=== PATIENT | female | born 1930 | race Caucasian/White ===

== ENCOUNTER 2019-03-04 10:14 | Emergency (ER) | payer OTHER ==
[2019-03-04] MEDS ORDERED: CLINDAMYCIN 600MG/D5W 600 MG/50 ML BAG IV ONE (10:52)
[2019-03-04] MEDS ORDERED: CEFTRIAXONE/SWI 1gm 1 GM/10 ML SYR ONE (10:52)
--- NOTE | 2019-03-04 11:04 | ER ---
Nurse's Notes [facility] Name: Heather Garcia Age: 88 yrs Sex: Female : 1930 Arrival Date: 03/04/2019 Time: 10:18 Bed 20 Private MD: Marla Fuentes Diagnosis: Anisa-orbital cellulitis Presentation: 03/04 10:24 Presenting complaint: Patient states: She has had burning around the right eye for the aj1 past 2-3 days. Yesterday she started having some redness under the eye and when she woke up this morning there was redness around her entire eye. Patient also has a growth on the right worship that she states she had biopsied recently. 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 Transition of care: patient was not received from another setting of care. Onset of symptoms was February 2019. Risk Assessment: Do you want to hurt yourself or someone else? Patient reports no desire to harm self or others. Initial Sepsis Screen: Does the patient meet any 2 criteria? No. Patient's initial sepsis screen is negative. Does the patient have a suspected source of infection? No. Patient's initial sepsis screen is negative. Care prior to arrival: None. 10:24 Method Of Arrival: Ambulatory aj1 10:24 Acuity: ADRIENNE 3 aj1 Triage Assessment: 10:30 General: Appears in no apparent distress. uncomfortable, Behavior is calm, cooperative, aj1 appropriate for age. Pain: Complains of pain in right eye Pain currently is 5 out of 10 on a pain scale. Neuro: Level of Consciousness is awake, alert, obeys commands. Cardiovascular: Patient's skin is warm and dry. Respiratory: Airway is patent Respiratory effort is even, unlabored, Respiratory pattern is regular, symmetrical. Historical: - Allergies: 10:30 Bactrim; aj1 10:30 Inderal; aj1 - PMHx: 10:30 Diabetes - NIDDM; Hypertension; Hyperlipidemia; breast cancer; neuropathy; aj1 - PSHx: 10:30 partial hysterectomy; Cholecystectomy; aj1 - Immunization history:: Flu vaccine is not up to date. - Social history:: Smoking status: Patient/guardian denies using tobacco. - Ebola Screening: : Patient denies travel to an Ebola-affected area in the 21 days before illness onset. - Family history:: not pertinent. - Hospitalizations: : No recent hospitalization is reported. Screenin:50 Abuse screen: Denies threats or abuse. Nutritional screening: No deficits noted. em Tuberculosis screening: No symptoms or risk factors identified. Fall Risk None identified. Assessment: 10:50 General: Appears Behavior is calm, cooperative, Denies fever. Pain: Complains of pain em in right eye Pain currently is 5 out of 10 on a pain scale. Pain began 2-3 days ago. Neuro: Level of Consciousness is awake, alert, obeys commands, Oriented to person, place, time, situation, Appropriate for age. Cardiovascular: Capillary refill < 3 seconds Patient's skin is warm and dry. Respiratory: Airway is patent Respiratory effort is even, unlabored, Respiratory pattern is regular, symmetrical. GI: Abdomen is flat. Derm: Skin is intact, is fragile, Skin is pink, warm \T\ dry. redness noted around right eye, tender to touch. Musculoskeletal: Capillary refill < 3 seconds, Range of motion: intact in all extremities. 10:50 Reassessment: I agree with assessment completed by Judson Pereira LVN . aa5 11:07 Reassessment: pending completion of IV ABX before discharge Patient denies pain at this em time. Vital Signs: 10:30 BP 162 / 85; Pulse 86; Resp 18; Temp 97.7; Pulse Ox 99% on R/A; Weight 53.98 kg (R); aj1 Height 5 ft. 4 in. (162.56 cm) (R); Pain 5/10; 10:30 Body Mass Index 20.43 (53.98 kg, 162.56 cm) aj1 ED Course: 10:18 Patient arrived in ED. as 10:18 Marla Fuentes MD is Private Physician. as 10:28 Triage completed. aj1 10:30 Arm band placed on Patient placed in an exam room. aj1 10:32 Carter Rosas MD is Attending Physician. rn 10:37 Judson Pereira LVN is Primary Nurse. em 10:50 Patient has correct armband on for positive identification. Bed in low position. Call em light in reach. Adult w/ patient. 11:02 Inserted saline lock: 22 gauge in left antecubital area, using aseptic technique. em 11:42 No provider procedures requiring assistance completed. IV discontinued, intact, em bleeding controlled, No redness/swelling at site. Pressure dressing applied. Administered Medications: 11:02 Drug: Rocephin - (cefTRIAXone) 1 grams Route: IVPB; Infused Over: 30 mins; Site: left aa5 antecubital; 11:08 Follow up: Response: No adverse reaction; IV Status: Completed infusion; IV Intake: 10mlem 11:03 Drug: Clindamycin 600 mg Route: IVPB; Infused Over: 30 mins; Site: right antecubital; em 11:41 Follow up: Response: No adverse reaction; IV Status: Completed infusion; IV Intake: em 100ml Intake: 11:08 IV: 10ml; Total: 10ml. em 11:41 IV: 100ml; Total: 110ml. em Outcome: 11:04 Discharge ordered by . rn 11:42 Discharged to home ambulatory, with family. em 11:42 Condition: good 11:42 Discharge instructions given to patient, family, Instructed on discharge instructions, follow up and referral plans. medication usage, Demonstrated understanding of instructions, follow-up care, medications, Prescriptions given X 2. 11:43 Patient left the ED. em Signatures: Angeline Martini RN RN aj1 Judson Pereira, SAP FICO ARCHITECT SAP FICO ARCHITECT em Destiny Leon Roman, MD MD rn Calderon, Audri, RN RN aa5 Corrections: (The following items were deleted from the chart) 10:53 10:30 Allergies: PENICILLINS; aj1 em
--- NOTE | 2019-03-04 11:05 | EDPHYS ---
Physician Documentation [facility] Name: Heather Garcia Age: 88 yrs Sex: Female : 1930 Arrival Date: 03/04/2019 Time: 10:18 Bed 20 Private MD: Marla Fuentes ED Physician Carter Rosas HPI: 03/04 10:50 This 88 yrs old Female presents to ER via Ambulatory with complaints of Eye rn Swelling - Redness. 10:50 The patient is experiencing redness, The patient sustained None. to the right eye. rn Onset: The symptoms/episode began/occurred 2 day(s) ago. Duration: the symptoms are continuous. Aggravated by pressure, rubbing, Alleviated by nothing. Severity of symptoms: At their worst the symptoms were mild in the emergency department the symptoms are unchanged. The patient has not experienced similar symptoms in the past. Reports has growth to right faith, had biopsy 3-4 weeks ago, told is cancer, has been fine, but 2-3 days ago noticed redness to right eye area, no drainage, no vision changes or pain with eye movement. No fever. Does not feel ill. Reports skin andrade and itches. . Historical: - Allergies: 10:30 Bactrim; aj1 10:30 Inderal; aj1 - PMHx: 10:30 Diabetes - NIDDM; Hypertension; Hyperlipidemia; breast cancer; neuropathy; aj1 - PSHx: 10:30 partial hysterectomy; Cholecystectomy; aj1 - Immunization history:: Flu vaccine is not up to date. - Social history:: Smoking status: Patient/guardian denies using tobacco. - Ebola Screening: : Patient denies travel to an Ebola-affected area in the 21 days before illness onset. - Family history:: not pertinent. - Hospitalizations: : No recent hospitalization is reported. ROS: 10:50 Constitutional: Negative for fever, chills, and weight loss, Eyes: + right eye pain and rn redness ENT: Negative for injury, pain, and discharge, Neck: Negative for injury, pain, and swelling, Cardiovascular: Negative for chest pain, palpitations, and edema, Respiratory: Negative for shortness of breath, cough, wheezing, and pleuritic chest pain, Abdomen/GI: Negative for abdominal pain, nausea, vomiting, diarrhea, and constipation, MS/Extremity: Negative for injury and deformity, Neuro: Negative for headache, weakness, numbness, tingling, and seizure. Exam: 10:50 Constitutional: This is a well developed, well nourished patient who is awake, alert, rn and in no acute distress. Head/Face: Normocephalic, atraumatic. Eyes: + right periorbital erythema without involvement of sclera or conjunctiva, EOMI, no fluctuance, no lesions. ENT: Nares patent. No nasal discharge. Oropharynx with no redness, swelling, or masses, exudates, or evidence of obstruction, uvula midline. Mucous membranes moist. Neck: Trachea midline, no thyromegaly or masses palpated, and no cervical lymphadenopathy. Supple, full range of motion without nuchal rigidity, or vertebral point tenderness. No Meningismus. Vital Signs: 10:30 BP 162 / 85; Pulse 86; Resp 18; Temp 97.7; Pulse Ox 99% on R/A; Weight 53.98 kg (R); aj1 Height 5 ft. 4 in. (162.56 cm) (R); Pain 5/10; 10:30 Body Mass Index 20.43 (53.98 kg, 162.56 cm) aj1 MDM: 10:32 Patient medically screened. rn 11:03 Differential diagnosis: periorbital cellulitis. Data reviewed: vital signs, nurses rn notes, and as a result, I will discharge patient. Counseling: I had a detailed discussion with the patient and/or guardian regarding: the historical points, exam findings, and any diagnostic results supporting the discharge/admit diagnosis, the need for outpatient follow up, to return to the emergency department if symptoms worsen or persist or if there are any questions or concerns that arise at home. Special discussion: I discussed with the patient/guardian in detail that at this point there is no indication for admission to the hospital. It is understood, however, that if the symptoms persist or worsen the patient needs to return immediately for re-evaluation. ED course: Procedure was 3-4 weeks ago, a bit delayed to be infection from that but possible, will treat with double abx coverage and return precautions given and understood.. 11:04 ED course: states glucose in 90s today.. rn 03/04 10:48 Order name: IV Start; Complete Time: 11:03 rn Administered Medications: 11:02 Drug: Rocephin - (cefTRIAXone) 1 grams Route: IVPB; Infused Over: 30 mins; Site: left aa5 antecubital; 11:08 Follow up: Response: No adverse reaction; IV Status: Completed infusion; IV Intake: 10mlem 11:03 Drug: Clindamycin 600 mg Route: IVPB; Infused Over: 30 mins; Site: right antecubital; em 11:41 Follow up: Response: No adverse reaction; IV Status: Completed infusion; IV Intake: em 100ml Disposition: 03/04/19 11:04 Discharged to Home. Impression: Anisa-orbital cellulitis. - Condition is Stable. - Discharge Instructions: Preseptal Cellulitis, Adult. - Prescriptions for Clindamycin HCl 300 mg Oral Capsule - take 1 capsule by ORAL route every 6 hours for 10 days; 40 capsule. Keflex 500 mg Oral Capsule - take 1 capsule by ORAL route every 12 hours for 10 days; 20 capsule. - Medication Reconciliation Form, Thank You Letter, Antibiotic Education, Prescription Opioid Use form. - Follow up: Private Physician; When: 2 - 3 days; Reason: Recheck today's complaints, Re-evaluation by your physician. - Problem is new. - Symptoms are unchanged. Signatures: Angeline Martini RN RN aj1 Judson Pereira, LOADER TECHNICIAN LOADER TECHNICIAN em Carter Rosas MD MD rn Calderon, Audri, RN RN aa5 Corrections: (The following items were deleted from the chart) 10:53 10:30 Allergies: PENICILLINS; aj1 em 11:43 11:04 03/04/2019 11:04 Discharged to Home. Impression: Anisa-orbital cellulitis. em Condition is Stable. Forms are Medication Reconciliation Form, Thank You Letter, Antibiotic Education, Prescription Opioid Use. Follow up: Private Physician; When: 2 - 3 days; Reason: Recheck today's complaints, Re-evaluation by your physician. Problem is new. Symptoms are unchanged. rn
[2019-03-04 11:47] VITALS: BP 162/85; TEMP 97.7; O2SAT 99
== END 2019-03-04 11:43 | disposition home or self-care (01) ==
LOC: ER 10:14
DX: H05.011 Cellulitis of right orbit (principal); Z88.1 Allergy status to other antibiotic agents
CPT/HCPCS: 96365; 96375; 99283; J0696

== ENCOUNTER 2020-04-16 08:32 | Emergency (ER) | payer OTHER ==
--- OUTSIDE RECORDS SUMMARY | 2020-04-16 08:41 | XMS REPORT | Continuity of Care Document ---
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s specified forms of 015 a t [facility] tremor [place] Unsteady gait Active Condition 10/17/2014 Physi cians 015 at [facility] Body Mass Index Active Condition 10/17/2014 Phy sicians between 19-24 Adult 014 at [facility] Periodontal disease Inactive Condition 10/17/2014 Physicians 014 at [facility] Caries, dental Inactive Condition 10/17/2014 Phys icians 014 at [facility] HIP PAIN, RIGHT Active Condition 10/17/2014 Phy sicians 014 at [facility] SPRAIN&STRAIN OTHER Inactive Condition 10/17/2014 Physicians SPECIFIED SITES 014 at [facility] KNEE&LEG [place] BODY MASS INDEX Inactive Condition 10/17/2014 Phy sicians BETWEEN 19-24 ADULT 014 at [facility] ABDOMINAL PAIN, Inactive Condition 10/17/2014 Phy sicians GENERALIZED 013 at [facility] CONSTIPATION Inactive Condition 10/17/2014 Physic ians 013 at [facility] 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 Phys icians IMPAIRMENT SO 013 at [facility] STATED [place] GRIEF REACTION Inactive Condition 10/17/2014 Phys icians 013 at [facility] EYE PAIN Inactive Condition 10/17/2014 Physician s 012 at [facility] HYDRONEPHROSIS, Inactive Condition 10/17/2014 Phy sicians BILATERAL 012 at [facility] MICROSCOPIC Inactive Condition 10/17/2014 Physici ans HEMATURIA 012 at [facility] TENDINITIS, RIGHT Inactive Condition 10/17/2014 P hysicians KNEE 012 at [facility] BICEPS TENDINITIS, Inactive Condition 10/17/2014 Physicians RIGHT 012 at [facility] FLU VACCINE Inactive Condition 10/17/2014 Physici ans 011 at [facility] DIABETIC 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 s NEPHROPATHY (BOTH 011 at [facility] CODES REQD) [place] DIABETES, TYPE 2, Active Condition 10/17/2014 P hysicians UNCONTROLD, W/RENAL 011 at [facility] COMP [place] IRRITABLE BOWEL Active Condition 10/17/2014 Phy sicians SYNDROME 011 at [facility] OTHER SCREENING Inactive Condition 10/17/2014 Phy sicians MAMMOGRAM 011 at [facility] THROMBOCYTOPENIA Inactive Condition 10/17/2014 Ph ysicians 011 at [facility] VITAMIN B12 Active Condition 10/17/2014 Physici ans DEFICIENCY 010 at [facility] HYPOTHYROIDISM Active Condition 10/17/2014 Phys icians 010 at [facility] ANEMIA, NORMOCYTIC 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s 010 at [facility] URI Inactive Condition 10/17/2014 Physician s 010 at [facility] OSTEOPENIA Active Condition 10/17/2014 Physicia ns 009 at [facility] UTI Inactive Condition 10/17/2014 Physician s 009 at [facility] ABFND, Inactive Condition 10/17/2014 Physician s RADIOLOGICAL, 009 at [facility] BREAST, MAMMOGRAM [place] NOS NEOPLASM, 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 s MALIGNANT, BREAST, 008 a t [facility] LEFT [place] TRIGGER FINGER, Inactive Condition 10/17/2014 Phy sicians RIGHT MIDDLE 008 at [facility] [place] INSOMNIA, Inactive Condition 10/17/2014 Physician s PERSISTENT 007 at [facility] CHRONIC KIDNEY DIS 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s STAGE III 007 at [facility] (MOD)--EGFR 55 [place] HAY FEVER Inactive Condition 10/17/2014 Physician s 007 at [facility] VACCINE AGAINST Inactive Condition 10/17/2014 Phy sicians INFLUENZA 007 at [facility] WELL WOMAN Inactive Condition 10/17/2014 Physicia ns 007 at [facility] SCIATICA Inactive Condition 10/17/2014 Physician s 007 at [facility] SYMPTOM, COUGH Inactive Condition 10/17/2014 Phys icians 006 at [facility] GLAUCOMA NOS Active Condition 10/17/2014 Physic ians 006 at [facility] U T I Inactive Condition 10/17/2014 Physician s 006 at [facility] GERD 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 s 006 at [facility] SINUSITIS, ACUTE Inactive Condition 10/17/2014 Ph ysicians 006 at [facility] ALLERGIC RHINITIS Active Condition 10/17/2014 P hysicians 006 at [facility] DYSPNEA Inactive Condition 10/17/2014 Physician s 006 at [facility] CHEST PAIN Inactive Condition 10/17/2014 Physicia ns 006 at [facility] FATIGUE Inactive Condition 10/17/2014 Physician s 006 at [facility] ABDOMINAL PAIN, Inactive Condition 10/17/2014 Phy sicians EPIGASTRIC 006 at [facility] HEMATURIA Inactive Condition 10/17/2014 Physician s 006 at [facility] DIVERTICULOSIS Active Condition 10/17/2014 Phys icians 006 at [facility] HYPERTENSION Active Condition 10/17/2014 Physic ians 006 at [facility] HYPERLIPIDEMIA, Active Condition 10/17/2014 Phy sicians MIXED 004 at [facility] DISEASE, PANCREAS Inactive Condition 10/17/2014 P hysicians NOS 003 at [facility] ABDOMINAL PAIN Inactive Condition 10/17/2014 Phys icians 003 at [facility] PERIPHERAL Active Condition 10/17/2014 Physicia ns NEUROPATHY 003 at [facility] IRREGULAR HEART Active Condition 10/17/2014 Phy sicians RATE 003 at [facility] ABDOMEN, ACUTE Inactive Condition 10/17/2014 Phys icians 002 at [facility] DIABETES MELLITUS, 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s TYPE II, 989 at [facility] CONTROLLED, W/NEURO [place] COMPS Vitamin D 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 s Deficiency at [facility] Medications Medication Details Route Status Patient Ordering Order Source Instructions Provider Date MELOXICAM 15 MG Active 06/11/ Physicia ns TABS 2014 at [facility] HANDICAP PLACARD place placard Active 06/11/ P hysicians in car 2014 at [facility] SHINGLES VACCINE place 1 Active 06/11/ Physici ans shingles 2014 at [facility] vaccine [place] PROPRANOLOL HCL 1 tab po twice Active 06/11/ P hysicians 40 MG TABS a day for 2014 at [facility] tremor [place] TRAMADOL HCL 50 1 tab po q4h No Longer 02/20/ P hysicians MG TABS as needed for Active 2013 at [facility] pain [place] TRAMADOL HCL 50 1 tab po q4h No Longer 02/20/ P hysicians MG TABS as needed for Active 2013 at [facility] pain [place] [id number] UNIT 1 tab po Active 12/05/ Physic ians CAPS weekly x 8 2013 at [facility] weeks [place] GABAPENTIN 100 MG take 2 caps po Active 09/04/ Physicians CAPS twice a day 2013 at [facility] for neuropathy [place] TRAMADOL HCL 50 1 tab by mouth No Longer 06/21/ Physicians MG TABS every 8 hours Active 2013 at [facility] as needed for [place] pain TRAMADOL HCL 50 1 tab by mouth No Longer 06/21/ Physicians MG TABS every 8 hours Active 2013 at [facility] as needed for [place] pain BRIMONIDINE Active 06/12/ Physicians TARTRATE 0.15 % 2013 at [facility] SOLN [place] BISACODYL 10 MG 1 tablet BID No Longer 11/22/ P hysicians SUPP per rectum for Active 2012 at [facility] your [place] constipation LACTULOSE 10 15mL PO BID No Longer 11/22/ Physi cians GM/15ML SOLN PRN Active 2012 at [facility] constipation [place] TRAVATAN Z 0.004 Instil one Active 11/01/ Phys icians % SOLN drop in each 2012 at [facility] eye q hs. [place] CYMBALTA 20 MG 1 tablet PO No Longer 11/01/ Phy sicians CPEP daily for your Active 2012 at [facility] neuropathic [place] pain FRESHKOTE 2.7-2 % eye gtts tid Active 07/05/ P hysicians SOLN 2012 at [facility] LOVASTATIN 10 MG 1 tablet PO Active 07/05/ Phy sicians TABS QHS for your 2013 at [facility] cholesterol [place] LANTUS 100 10 units SQ in Active 07/05/ Physic ians UNIT/ML SOLN AM for 2012 at [facility] Diabetes [place] LANTUS 100 13 units SQ in Active 07/05/ Physic ians UNIT/ML SOLN AM for 2013 at [facility] Diabetes [place] MOBIC 15 MG TABS 1 tablet PO No Longer 12/14/ P hysicians daily PRN pain Active 2011 at [facility] KROGER TEST STRP Use with No Longer 03/12/ Phys icians glucometer to Active 2010 at [facility] test blood [place] sugar 4 times daily. BENTYL 20 MG TABS Take one tab No Longer 03/10/ Physicians by mouth three Active 2010 at [facility] times daily. [place] COZAAR 25 MG TABS 1/2 tablet PO No Longer 08/11/ Physicians Daily for Active 2010 at [facility] Blood Pressure [place] VITAMIN B-12 1000 One PO Daily Active 03/31/ P hysicians MCG TABS for B12 2009 at [facility] Deficiency [place] LEVOTHYROXINE 1 tab po daily Active 02/17/ Phy sicians SODIUM 50 MCG for thyroid 2010 at [facility] TABS [place] BENADRYL ALLERGY 1 po at hs prn Active 02/12/ Physicians CAPS 2009 at [facility] CALCIUM 600 TABS 1 po bid No Longer 02/12/ Phys icians Active 2009 at [facility] ALPHA-LIPOIC ACID 1 po bid Active 02/12/ Physi cians 200 MG CAPS 2009 at [facility] HYDROCODONE-HOMAT take 1 tsp q 4 No Longer 08/28 / Physicians ROPINE 5-1.5 hrs prn cough Active 2009 at [facility] MG/5ML SYRP [place] BENZONATATE 200 take 1 tab po No Longer 08/27/ Physicians MG CAPS tid prn cough Active 2009 at [facility] AZOPT 1 % SUSP 1 drop each No Longer 08/27/ Phy sicians eye Active 2009 at [facility] CALCIUM 600 MG Inactive 10/29/ Physicia ns TABS 2008 at [facility] FISH OIL 1000 MG 1 tab in the Inactive 10/29/ P hysicians CAPS morning and 1 2008 at [facility] tab at night [place] CIPRO 250 MG TABS Take one po Inactive 10/29/ P hysicians BID for 3 2008 at [facility] days. [place] LYRICA 50 MG CAPS one by mouth Inactive 10/29/ Physicians three times a 2008 at [facility] day for foot [place] pain, increasing to 2 po TID over the first week FLUOROMETHOLONE Inactive 10/29/ Physici ans 0.1 % SUSP 2008 at [facility] HUMULIN N 100 20 units in No Longer 10/29/ Phys icians U/ML SUSPN morning sq, 12 Active 2008 at [place] [facility] units sq in [place] evening TAMOXIFEN CITRATE Take one table No Longer 10/29 / Physicians 20 MG TABS by mouth daily Active 2008 at [facility] [place] [facility] [place] HUMULIN N 100 20 units in No Longer 10/29/ Phys icians U/ML SUSPN morning sq, 12 Active 2008 at [place] units sq in [place] evening PREMARIN 0.625 MG 1 po daily Inactive 08/10/ Ph ysicians TAB 2006 at [facility] ALPHA-LIPOIC ACID takes 1 tablet Inactive 03/26/ Physicians 50 MG CAPS at night 2005 at [facility] NASONEX 50 2 sprays each Inactive 03/26/ Physic ians MCG/ACT SUSP nostril q day 2005 at [facility] DIMITRI 180 MG Take one Inactive 03/26/ Physici ans TABS tablet po q 2005 at [facility] TUSSIONEX 5 ml q12h Inactive 03/26/ Physicians PENNKINETIC ER 2005 at [facility] 8-10 MG/5ML LQCR [place] OPTIVAR 0.05 % 1 gtt each eye Inactive 03/26/ P hysicians SOLN bid 2006 at [facility] ZETIA 10 MG TABS one tab po qhs Inactive 03/26/ Physicians 2006 at [facility] LUMIGAN 0.03 % One drop in No Longer 03/26/ Phy sicians SOLN each eye q HS Active 2005 at [facility] ALPHAGAN P 0.1 % One drop in No Longer 03/26/ P hysicians SOLN each eye BID Active 2005 at [facility] ALTACE 10 MG CAPS one by mouth Inactive 02/26/ Physicians daily for 2006 at [facility] blood pressure [place] KETEK 400 MG TABS 2 po daily x 5 Inactive 11/12/ Physicians days 2006 at [facility] GUAIFENESIN 1200 Take one Inactive 11/12/ Physi cians MG TB12 tablet po q 12 2005 at [facility] hours prn [place] cough/congesti on MACROBID CAP one po bid No Longer 11/12/ Physic ians 100MG Active 2005 at [facility] PYRIDIUM TAB 1 PO TID PRN No Longer 11/12/ Phys icians 200MG PAINFUL Active 2006 at [facility] URINATION. [place] PRILOSEC 20 MG one tab po qd Active 11/06/ Phy sicians CPDR for acid 2006 at [facility] reflux [place] CEPHALEXIN 1 po TID for Inactive 07/24/ Physici ans MONOHYDRATE 500 infection 2006 at [facility] MG TABS [place] LOPID 600 MG TABS 1 po BID for Inactive 07/24/ Physicians cholesterol 2006 at [facility] and [place] triglycerides PRILOSEC 20 MG 1 po daily Inactive 07/24/ Physi cians CPDR 2006 at [facility] XALATAN 0.005 % Inactive 07/24/ Physici ans SOLN 2005 at [facility] ELIZABETH-TAB 333 MG 3 times a day Inactive 07/24/ Ph ysicians TBEC 2006 at [facility] HUMALOG 100 U/ML sliding scale No Longer 07/24/ Physicians SOLN Active 2005 at [facility] ASPIRIN 81 MG one by mouth Active 07/24/ Physi cians TBEC daily 2006 at [facility] HUMALOG 100 U/ML sliding scale No Longer 07/24/ Physicians SOLN Active 2005 at [facility] NEURONTIN 100 MG 2 or 3 hs Inactive 11/01/ Phys icians CAP 2004 at [facility] LOPID 600 MG TABS half at Inactive 11/01/ Physi cians morning and 2003 at [facility] half at night [place] PEPCID 10 MG/ML take at night Inactive 11/01/ P hysicians SOLN prn after 2004 at [facility] meals [place] MACRODANTIN 50 MG 1 po TID for Inactive 11/01/ Physicians CAPS urinary 2003 at [facility] infection [place] HUMIBID-DM 30-600 1 po BID for Inactive 10/26/ Physicians MG TABSR12 sinuses and 2002 at [facility] cough [place] LANOXIN 0.125 MG 1 po daily for No Longer 02/08/ Physicians TAB heart rhythm Active 2001 at [facility] Allergies, Adverse Reactions, Alerts Substance Category Reaction Severity Reaction Status Date Comments S ource type Reported BACTRIM Drug BACTRIM Physic ians allergy 2 at [facility] INDERAL Drug INDERAL Physic ians allergy 2 at [place] [facility] TENORMIN Drug TENORMIN Phys icians allergy 2 at [facility] Immunizations Immunization Date Site Status Last Comments Source Given Updated pediatric completed Physicians at pneumococcal 5 [facility] vaccine (Prevnar) #1 dT (Diphtheria and completed P hysicians at Tetanus) booster 5 [place] [facility] [place] given influenza completed Physicians at immunization (Flu 4 [facility] [place] Vax) has been administered influenza completed Physicians at immunization (Flu 2 [facility] [place] Vax) has been administered influenza completed Physicians at immunization (Flu 1 [facility] [place] Vax) has been administered TB-PPD (tuberculin completed P hysicians at purified protein 7 [facility] [place] derivative), intradermal administration influenza completed Physicians at immunization (Flu 6 [facility] [place] Vax) has been administered influenza completed Physicians at immunization (Flu 6 [facility] [place] Vax) has been administered influenza completed Physicians at immunization (Flu 4 [facility] [place] Vax) has been administered pneumococcal completed Physici ans at immunization 4 [place] [facility] [place] administered influenza completed Physicians at immunization (Flu 3 [facility] [place] Vax) has been administered influenza completed Physicians at immunization (Flu 2 [facility] [place] Vax) has been administered Results Order Name Results Value Reference Date Interpretation Comments Vidhya rce Range Chemistry CHOLESTEROL 181 125 - 200 06/12 Physicia ns /2014 at [facility] Chemistry HDL 48 >=46 06/12 Physicians /2014 at [facility] Chemistry LDL 112 MG/DL - 130 06/12 Physicians (CALC) /2014 at [facility] Chemistry BUN 15 7 - 25 06/12 Physicians /2015 at [facility] Chemistry CREATININE 1.30 0.60 - 06/12 Physicians 0.88 /2015 at [facility] Chemistry BUN/CREAT 12 (calc) 6 - 22 06/12 Physicians /2014 at [facility] SODIUM 141 135 - 146 06/12 Physicians /2014 at [facility] POTASSIUM 4.2 3.5 - 5.3 06/12 Physicians /2014 at [facility] CALCIUM 9.9 8.6 - 10.4 06/12 Physicians /2014 at [facility] HGBA1C 8.0 % OF - 5.7 06/12 Physicians TOTAL HGB /2014 at [facility] Chemistry TSH 1.59 0.40 - 06/12 Physicians 4.50 /2014 at [facility] Hematology HGB 11.6 11.7 - 06/12 Physicians 15.5 /2014 at [facility] Hematology HCT 35.8 35.0 - 06/12 Physicians 45.0 /2015 at [facility] Hematology PLATELETS 221 140 - 400 06/12 Physician s THOUSAND/UL /2014 at [facility] Chemistry BUN 17 7 - 25 02/25 Physicians /2013 at [facility] Chemistry CREATININE 1.36 0.60 - 02/25 Physicians 0.88 /2013 at [facility] Chemistry BUN/CREAT 13 (calc) 6 - 22 02/25 Physicians /2013 at [facility] Chemistry SODIUM 140 135 - 146 09 Physicians /2013 at [facility] Chemistry POTASSIUM 5.2 3.5 - 5.3 02/25 Physicians /2013 at [facility] Chemistry CALCIUM 9.9 8.6 - 10.4 02/25 Physicians /2013 at [facility] Chemistry HGBA1C 8.1 % OF - 5.7 02/25 Physicians TOTAL HGB /2013 at [facility] Chemistry TSH 4.69 0.40 - 02/25 Physicians 4.50 /2013 at [facility] Chemistry CHOLESTEROL 167 125 - 200 07 Physicia ns /2013 at [facility] Chemistry HDL 41 >=46 07/ Physicians /2013 at [facility] Chemistry LDL 100 MG/DL - 130 07 Physicians (CALC) /2013 at [facility] Chemistry BUN 14 7 - 25 07 Physicians /2014 at [facility] Chemistry CREATININE 1.20 0.60 - 11/29 Physicians 0.88 /2013 at [facility] Chemistry BUN/CREAT 12 (calc) 6 - 22 07 Physicians /2013 at [facility] Chemistry SODIUM 142 135 - 146 07/ Physicians /2013 at [facility] Chemistry POTASSIUM 4.6 3.5 - 5.3 11/29 Physicians /2013 at [facility] Chemistry CALCIUM 9.6 8.6 - 10.4 11/29 Physicians /2013 at [facility] Chemistry HGBA1C 8.6 % OF - 5.7 11/29 Physicians TOTAL HGB /2013 at [facility] Chemistry TSH 4.23 0.40 - 11/29 Physicians 4.50 /2013 at [facility] Chemistry B-12 803 200 - 1100 07/ Physicians /2013 at [facility] Hematology HGB 11.6 11.7 - 07 Physicians 15.5 /2013 at [facility] Hematology HCT 35.5 35.0 - 07/ Physicians 45.0 /2013 at [facility] Hematology PLATELETS 191 140 - 400 11/29 Physician s THOUSAND/UL /2013 at [facility] Chemistry CHOLESTEROL 152 125 - 200 06/14 Physicia ns /2013 at [facility] Chemistry HDL 46 >=46 06/14 Physicians /2013 at [facility] Chemistry LDL 82 MG/DL - 130 06/14 Physicians (CALC) /2013 at [facility] Chemistry HGBA1C 7.9 % OF - 5.7 06/14 Physicians TOTAL HGB /2013 at [facility] Chemistry CHOLESTEROL 153 125 - 200 11/02 Physicia ns /2012 at [facility] Chemistry HDL 46 >=46 11/02 Physicians /2012 at [facility] Chemistry LDL 80 MG/DL - 130 11/02 Physicians (CALC) /2012 at [facility] Chemistry HGBA1C 7.7 % OF - 5.7 11/02 Physicians TOTAL HGB /2012 at [facility] Chemistry B-12 647 200 - 1100 11/02 Physicians /2012 at [facility] Chemistry TSH 3.23 0.40 - 09/09 Physicians 4.50 /2012 at [facility] Chemistry CHOLESTEROL 148 125 - 200 02 Physicia ns /2012 at [facility] Chemistry HDL 48 >=46 02 Physicians /2012 at [facility] Chemistry LDL 71 MG/DL - 130 07/06 Physicians (CALC) /2012 at [facility] Chemistry BUN 14 7 - 25 02 Physicians /2012 at [facility] Chemistry CREATININE 1.23 0.60 - 02 Physicians 0.88 /2012 at [facility] Chemistry BUN/CREAT 11 (calc) 6 - 22 02 Physicians /2013 at [facility] Chemistry SODIUM 140 135 - 146 02/ Physicians /2012 at [facility] Chemistry POTASSIUM 4.4 3.5 - 5.3 02/06 Physicians /2012 at [facility] Chemistry CALCIUM 9.3 8.6 - 10.4 02/ Physicians /2012 at [facility] Chemistry HGBA1C 7.5 % OF - 5.7 02 Physicians TOTAL HGB /2012 at [facility] Urinalysis MICROALB URN 117 07/06 Physicia ns /2012 at [facility] Chemistry BUN 16 7 - 25 01/06 Physicians /2011 at [facility] Chemistry CREATININE 1.28 0.60 - 08 Physicians 0.88 /2011 at [facility] Chemistry BUN/CREAT 13 (calc) 6 - 22 08 Physicians /2011 at [facility] Chemistry SODIUM 139 135 - 146 08 Physicians /2011 at [facility] Chemistry POTASSIUM 4.2 3.5 - 5.3 08 Physicians /2011 at [facility] Chemistry CALCIUM 8.9 8.6 - 10.4 08 Physicians /2011 at [facility] Chemistry HGBA1C 7.2 % OF - 5.7 01/06 Physicians TOTAL HGB /2011 at [facility] Chemistry CHOLESTEROL 130 125 - 200 08/27 Physicia ns /2011 at [facility] Chemistry HDL 45 >=46 08/27 Physicians /2011 at [facility] Chemistry LDL 63 MG/DL - 130 08/27 Physicians (CALC) /2011 at [facility] Chemistry HGBA1C 7.2 % OF - 5.7 08/27 Physicians TOTAL HGB /2011 at [facility] Chemistry TSH 3.69 0.40 - 08/27 Physicians 4.50 /2011 at [facility] Chemistry HGBA1C 7.3 % OF - 5.7 03/11 Physicians TOTAL HGB /2010 at [facility] Chemistry HGBA1C 7.5 % OF - 5.7 10/29 Physicians TOTAL HGB /2010 at [facility] Hematology HGB 11.0 11.7 - 10/29 Physicians 15.5 /2010 at [facility] Hematology HCT 33.0 35.0 - 10/29 Physicians 45.0 /2010 at [facility] Hematology PLATELETS 170 140 - 400 10/29 Physician s THOUSAND/UL /2010 at [facility] Urinalysis MICROALB URN 13 10/29 Physicia ns /2010 at [facility] Chemistry HEMOCCULT NOT 08/21 Physicians DETECTED at [facility] Chemistry CHOLESTEROL 126 125 - 200 08/12 Physicia ns /2010 at [facility] Chemistry HDL 44 >=46 08/12 Physicians /2010 at [facility] Chemistry LDL 58 MG/DL - 130 08/12 Physicians (CALC) /2010 at [facility] Chemistry BUN 13 7 - 25 08/12 Physicians /2010 at [facility] Chemistry CREATININE 0.98 0.63 - 08/12 Physicians 1. at [facility] Chemistry BUN/CREAT NOT 6 - 22 08/12 Physicians APPLICABLE /2010 at [facility] (calc) [place] Chemistry SODIUM 143 135 - 146 08/12 Physicians /2010 at [facility] Chemistry POTASSIUM 4.3 3.5 - 5.3 08/12 Physicians /2010 at [facility] Chemistry CALCIUM 9.1 8.6 - 10.2 08/12 Physicians /2010 at [facility] Chemistry HGBA1C 7.4 % OF - 5.7 08/12 Physicians TOTAL HGB /2010 at [facility] Chemistry ALBUMIN 4.0 3.6 - 5.1 08/12 Physicians /2010 at [facility] Chemistry ALK PHOS 47 33 - 130 08/12 Physicians /2010 at [facility] Chemistry SGOT (AST) 11 10 - 35 08/12 Physicians /2010 at [facility] Chemistry SGPT (ALT) 7 6 - 40 08/12 Physicians /2010 at [facility] Chemistry TSH 2.59 0.40 - 08/12 Physicians 4.50 /2010 at [facility] Chemistry T4, FREE 1.1 0.8 - 1.8 08/12 Physicians /2010 at [facility] Chemistry B-12 419 200 - 1100 08/12 Physicians /2010 at [facility] Hematology HGB 15.0 11.7 - 08/12 Physicians 15.5 /2011 at [facility] Hematology HCT 46.6 35.0 - 08/12 Physicians 45.0 /2010 at [facility] Hematology PLATELETS 88 140 - 400 08/12 Physician s THOUSAND/UL /2010 at [facility] Chemistry IRON 40 40 - 160 04/01 Physicians /2009 at [facility] Chemistry TIBC 218 250 - 450 04/01 Physicians /2009 at [facility] Chemistry FERRITIN 158 20 - 288 04/01 Physicians /2009 at [facility] Chemistry B-12 210 200 - 1100 04/01 Physicians /2009 at [facility] Chemistry FOLATE 9.6 04/01 Physicians /2009 at [facility] Hematology RETIC COUNT 0.8 04/01 Physician s /2009 at [facility] Toxicology DIGOXIN 0.5 0.8 - 2.0 04/01 Physicians /2009 at [facility] Chemistry IRON 40 40 - 160 03/27 Physicians /2009 at [facility] Chemistry TIBC 218 250 - 450 03/27 Physicians /2009 at [facility] Chemistry FERRITIN 158 20 - 288 03/27 Physicians /2009 at [facility] Chemistry B-12 210 200 - 1100 03/27 Physicians /2009 at [facility] Chemistry FOLATE 9.6 03/27 Physicians /2009 at [facility] Hematology RETIC COUNT 0.8 03/27 Physician s /2009 at [facility] Toxicology DIGOXIN 0.5 0.8 - 2.0 03/27 Physicians /2009 at [facility] Chemistry T4, FREE 0.8 0.8 - 1.8 02/13 Physicians /2009 at [facility] Toxicology DIGOXIN TNP mcg/L 02/13 Physicians /2009 at [facility] Chemistry CHOLESTEROL 112 125 - 200 01/29 Physicia ns /2009 at [facility] Chemistry HDL 41 >=46 01/29 Physicians /2009 at [facility] Chemistry LDL 45 MG/DL - 130 01/29 Physicians (CALC) /2009 at [facility] Chemistry BUN 14 7 - 25 01/29 Physicians /2009 at [facility] Chemistry CREATININE 1.15 0.63 - 01/29 Physicians 1. at [facility] Chemistry BUN/CREAT NOT 6 - 01/29 Physicians APPLICABLE /2009 at [facility] (calc) [place] Chemistry SODIUM 141 135 - 146 01/29 Physicians /2009 at [facility] Chemistry POTASSIUM 4.6 3.5 - 5.3 01/29 Physicians /2009 at [facility] Chemistry CALCIUM 8.9 8.6 - 10.2 01/29 Physicians /2009 at [facility] Chemistry ALBUMIN 3.7 3.6 - 5.1 01/29 Physicians /2009 at [facility] Chemistry ALK PHOS 41 33 - 130 01/29 Physicians /2009 at [facility] Chemistry SGOT (AST) 11 10 - 35 01/29 Physicians /2009 at [facility] Chemistry SGPT (ALT) 6 6 - 40 01/29 Physicians /2009 at [facility] Chemistry HGBA1C 6.7 % OF - 5.7 01/29 Physicians TOTAL HGB /2009 at [facility] Chemistry TSH 5.23 0.40 - 01/29 Physicians 4.50 /2010 at [facility] Hematology HGB 10.4 11.7 - 01/29 Physicians 15.5 /2009 at [facility] Hematology HCT 31.3 35.0 - 01/29 Physicians 45.0 /2010 at [facility] Hematology PLATELETS 133 140 - 400 01/29 Physician s THOUSAND/UL /2009 at [facility] Chemistry BUN 16 7 - 25 06/18 Physicians /2009 at [facility] Chemistry CREATININE 1.16 0.63 - 06/18 Physicians 1. at [facility] Chemistry BUN/CREAT NOT 6 - 06/18 Physicians APPLICABLE /2009 at [facility] (calc) [place] Chemistry SODIUM 141 135 - 146 06/18 Physicians /2009 at [facility] Chemistry POTASSIUM 4.6 3.5 - 5.3 06/18 Physicians /2009 at [facility] Chemistry CALCIUM 9.0 8.6 - 10.2 06/18 Physicians /2009 at [facility] Chemistry ALBUMIN 3.7 3.6 - 5.1 06/18 Physicians /2009 at [facility] Chemistry ALK PHOS 45 33 - 130 06/18 Physicians /2009 at [facility] [facility] SGOT (AST) 11 10 - 35 06/18 Physicians /2009 at [facility] SGPT (ALT) 7 6 - 40 06/18 [facility]icians /2009 at [facility] HGBA1C 7.4 % OF 06/18 Physicians TOTAL HGB /2009 at [facility] DIGOXIN 1.0 0.8 - 2.0 06/18 Physicians /2009 at [facility] CHOLESTEROL 128 125 - 200 10/30 Physicia ns /2008 at [facility] HDL 43 >=46 10/30 Physicians /2008 at [facility] LDL 60 MG/DL - 130 10/30 Physicians (CALC) /2008 at [facility] BUN 14 7 - 25 10/30 Physicians /2008 at [facility] CREATININE 1.02 0.63 - 10/30 Physicians 1.22 /2008 at [facility] BUN/CREAT NOT 6 - 22 10/30 Physicians APPLICABLE /2008 at [facility] ([facility]) [place] SODIUM 141 135 - 146 10/30 Physicians /2008 at [facility] POTASSIUM 4.8 3.5 - 5.3 10/30 Physicians /2008 at [facility] CALCIUM 9.0 8.6 - 10.2 10/30 Physicians /2008 at [facility] ALBUMIN 3.9 3.6 - 5.1 10/30 Physicians /2008 at [facility] ALK PHOS 57 33 - 130 / Physicians /2008 at [facility] SGOT (AST) 11 10 - 35 10/30 Physicians /2008 at [facility] SGPT (ALT) 6 6 - 40 10/30 Physicians /2008 at [facility] TSH 3.44 0.40 - 10/30 Physicians 4.50 /2008 at [facility] HGBA1C 6.6 % OF 10/30 Physicians TOTAL HGB /2008 at [facility] MICROALB URN 16 10/30 Physicia ns /2008 at [facility] CHOLESTEROL 160 125 - 200 11/08 Physicia ns /2007 at [facility] HDL 47 >=40 11/08 Physicians /2007 at [facility] LDL 93 MG/DL - 130 11/08 Physicians (CALC) /2007 at [facility] BUN 19 7 - 25 11/08 Physicians /2008 at [facility] CREATININE 1.14 0.50 - 11/08 Physicians 1. at [facility] BUN/CREAT NOT 6 - 22 11/08 Physicians APPLICABLE /2007 at [facility] ([facility] [place] SODIUM 140 135 - 146 11/08 Physicians /2007 at [facility] POTASSIUM 5.0 3.5 - 5.3 11/08 Physicians /2007 at [facility] CALCIUM 9.8 8.6 - 10.2 11/08 Physicians /2007 at [facility] CPK 94 - 165 11/08 Physicians /2008 at [facility] HGBA1C 6.8 % OF 11/08 Physicians TOTAL HGB /2007 at [facility] CHOLESTEROL 145 125 - 200 08/02 Physicia ns /2007 at [facility] HDL 46 >=40 03 Physicians /2008 at [facility] LDL 79 MG/DL - 130 / Physicians (CALC) /2007 at [facility] BUN 16 7 - 25 08/02 Physicians /2008 at [facility] CREATININE 0.93 0.50 - 08/02 Physicians 1. /2007 at [facility] BUN/CREAT 17 (calc) 6 - 22 08/02 Physicians /2008 at [facility] SODIUM 140 135 - 146 /05 Physicians /2008 at [facility] POTASSIUM 4.5 3.5 - 5.3 / Physicians /2008 at [facility] CALCIUM 9.7 8.6 - 10.2 03/05 Physicians /2008 at [facility] ALBUMIN 4.5 3.6 - 5.1 03/05 Physicians /2008 at [facility] ALK PHOS 81 33 - 130 03/05 Physicians /2008 at [facility] SGOT (AST) 17 10 - 35 03/05 Physicians /2008 at [facility] SGPT (ALT) 11 6 - 40 03/05 Physicians /2008 at [facility] CPK 102 - 165 03/05 Physicians /2008 at [facility] HGBA1C 6.9 % OF 08/02 Physicians TOTAL HGB /2007 at [facility] HGB 13.2 11.7 - 08/02 Physicians 15.5 /2007 at [facility] HCT 39.3 35.0 - 08/02 Physicians 45.0 /2007 at [facility] PLATELETS 155 140 - 400 08/02 Physician s THOUSAND/UL /2007 at [facility] HGBA1C 6.6 % OF 02/14 Physicians TOTAL HGB /2006 at [facility] MICROALB URN 7 02/14 Physicia ns /2006 at [facility] CREAT 24H UR 0.98 G/24 H 0.63 - 11/30 Phys icians 2.50 /2006 at [facility] BUN 19 7 - 11/26 Physicians /2006 at [facility] CREATININE 1.1 0.5 - 1.2 11/26 Physician s /2006 at [facility] BUN/CREAT 17 (calc) 6 - 11/26 Physicians /2006 at [facility] SODIUM 139 135 - 146 11/26 Physicians /2006 at [facility] POTASSIUM 4.4 3.5 - 5.3 11/26 Physicians /2006 at [facility] CALCIUM 9.6 8.6 - 10.2 11/26 Physicians /2006 at [facility] CHOLESTEROL 144 125 - 200 10/21 Physicia ns /2006 at [facility] HDL 42 >=40 10/21 Physicians /2006 at [facility] LDL 88 MG/DL - 130 10/21 Physicians (CALC) /2006 at [facility] BUN 19 7 - 25 10/21 Physicians /2006 at [facility] CREATININE 1.1 0.5 - 1.2 10/21 Physician s /2007 at [facility] BUN/CREAT 17 (calc) 6 - 10/21 Physicians /2006 at [facility] SODIUM 140 135 - 146 10/21 Physicians /2006 at [facility] POTASSIUM 4.6 3.5 - 5.3 10/21 Physicians /2006 at [facility] CALCIUM 9.9 8.6 - 10.2 10/21 Physicians /2006 at [facility] ALBUMIN 4.3 3.6 - 5.1 10/21 Physicians /2006 at [facility] ALK PHOS 61 33 - 130 10/21 Physicians /2007 at [facility] SGOT (AST) 12 10 - 35 10/21 Physicians /2007 at [facility] SGPT (ALT) 10 6 - 40 10/21 Physicians /2006 at [facility] HGBA1C 6.6 % OF 10/21 Physicians TOTAL HGB at [facility] DIGOXIN 1.7 0.8 - 2.0 10/21 Physicians /2006 at [facility] [employer] PAP SMEAR not 10/21 Physicians indicated at [facility] CHOLESTEROL 159 - 200 06/10 Physicians /2006 at [facility] HDL 55 >=40 06/10 Physicians /2006 at [facility] LDL 84 MG/DL - 130 06/10 Physicians (CALC) /2006 at [facility] HGBA1C 6.7 % OF 06/10 Physicians TOTAL HGB at [facility] BUN 15 7 - 30 03/27 Physicians at [facility] CREATININE 1.0 0.5 - 1.2 03/27 Physician s /2005 at [facility] BUN/CREAT 15 (calc) 6 - 25 03/27 Physicians at [facility] SODIUM 139 135 - 146 03/27 Physicians at [facility] POTASSIUM 3.8 3.5 - 5.3 03/27 Physicians /2005 at [facility] CALCIUM 9.6 8.5 - 10.4 03/27 Physicians at [facility] ALBUMIN 4.2 3.2 - 4.6 03/27 Physicians at [facility] ALK PHOS 66 20 - 125 03/27 Physicians at [facility] SGOT (AST) 15 3 - 35 03/27 Physicians at [facility] SGPT (ALT) 11 3 - 40 03/27 Physicians at [facility] HGBA1C 6.7 % OF 03/27 Physicians TOTAL HGB at [facility] CHOLESTEROL 193 - 200 11/21 Physicians /2005 at [facility] HDL 45 >=40 11/21 Physicians /2005 at [facility] LDL 122 MG/DL - 130 11/21 Physicians (CALC) /2005 at [facility] HGBA1C 6.6 % TOTAL 11/21 Physicians HGB at [facility] CHOLESTEROL 169 - 200 08/12 Physicians /2005 at [facility] HDL 46 >=40 08/12 Physicians /2005 at [facility] LDL 103 MG/DL - 130 08/12 Physicians (CALC) /2005 at [facility] MAGNESIUM 1.9 1.5 - 2.5 08/12 Physicians /2005 at [facility] BUN 16 7 - 30 08/12 Physicians /2005 at [facility] CREATININE 1.1 0.5 - 1.2 08/12 Physician s /2005 at [facility] BUN/CREAT 15 (CALC) 6 - 25 08/12 Physicians /2005 at [facility] SODIUM 140 135 - 146 08/12 Physicians /2005 at [facility] POTASSIUM 4.7 3.5 - 5.3 08/12 Physicians /2005 at [facility] CALCIUM 9.3 8.5 - 10.4 08/12 Physicians /2005 at [facility] ALBUMIN 3.8 3.2 - 4.6 08/12 Physicians /2005 at [facility] ALK PHOS 73 20 - 125 08/12 Physicians /2005 at [facility] SGOT (AST) 10 3 - 35 08/12 Physicians /2005 at [facility] SGPT (ALT) 4 3 - 40 08/12 Physicians /2005 at [facility] HGBA1C 7.0 % TOTAL 08/12 Physicians HGB /2005 at [facility] DIGOXIN 1.6 0.8 - 2.0 08/12 Physicians /2005 at [facility] MICROALB URN 34 08/12 Physicia ns /2005 at [facility] CHOLESTEROL 190 - 200 03/12 Physicians /2003 at [facility] HDL 57 >=40 03/12 Physicians /2003 at [facility] LDL 113 MG/DL - 130 03/12 Physicians (CALC) /2003 at [facility] ALBUMIN 4.3 3.2 - 4.6 03/12 Physicians /2003 at [facility] ALK PHOS 58 20 - 125 03/12 Physicians /2003 at [facility] SGOT (AST) 13 2 - 35 03/12 Physicians /2003 at [facility] SGPT (ALT) 8 2 - 40 03/12 Physicians /2003 at [facility] CPK 128 0 - 165 03/12 Physicians /2003 at [facility] HGBA1C 6.7 % TOTAL 03/12 Physicians HGB /2003 at [facility] CHOLESTEROL 213 - 200 06/ Physicians /2003 at [facility] HDL 52 >=40 06/ Physicians /2004 at [facility] LDL 139 MG/DL - 130 11/01 Physicians (CALC) /2003 at [facility] BUN 14 7 - 30 11/01 Physicians /2004 at [facility] CREATININE 1.0 0.5 - 1.2 11/01 Physician s /2004 at [facility] ALBUMIN 4.3 3.2 - 4.6 11/01 Physicians /2003 at [facility] ALK PHOS 65 20 - 125 06/ Physicians /2004 at [facility] SGOT (AST) 12 2 - 35 11/01 Physicians /2004 at [facility] SGPT (ALT) 10 2 - 40 06 Physicians /2004 at [facility] SODIUM 141 135 - 146 11/01 Physicians /2003 at [facility] POTASSIUM 4.4 3.5 - 5.3 11/01 Physicians /2003 at [facility] CPK 80 0 - 165 11/01 Physicians /2003 at [facility] All Round PAP SMEAR SOURCE 04/10 Physicians /2002 at [facility] HEMOCCULT Negative 04/04 Physicians /2002 at [facility] All [employer] PAP SMEAR done today 04/04 Physicians /2002 at [facility] HGB 12.7 11.5 - 10 Physicians 15.0 /2002 at [facility] HCT 38.1 34.0 - 10 Physicians 44.0 /2002 at [facility] PLATELETS 145 X 140 - 415 03/07 Physician s - at [facility] HGBA1C 6.3 4.5 - 5.7 10 Physicians /2002 at [facility] ALBUMIN 4.0 3.5 - 4.8 10 Physicians /2002 at [facility] ALK PHOS 74 25 - 165 10 Physicians /2002 at [facility] SGOT (AST) 17 0 - 40 10 Physicians /2002 at [facility] SGPT (ALT) 15 0 - 40 10 Physicians /2002 at [facility] CHOLESTEROL 189 100 - 199 10 Physicia ns /2002 at [facility] HDL 47 40 - 59 10/ Physicians /2002 at [facility] VLDL 570.0 10 Physicians /2002 at [facility] LDL 84 0 - 99 10/08 Physicians /2002 at [facility] BUN 19 5 - 26 03/07 Physicians /2002 at [facility] CREATININE 1.1 0.5 - 1.5 03/07 Physician s /2002 at [facility] BUN/CREAT 17 8 - 27 10 Physicians /2002 at [facility] SODIUM 140 135 - 148 10 Physicians /2002 at [facility] POTASSIUM 4.0 3.5 - 5.5 10 Physicians /2002 at [facility] HGB 13.4 11.5 - 05 Physicians 15.0 /2002 at [facility] HCT 40.0 34.0 - 05 Physicians 44.0 /2002 at [facility] PLATELETS 136 X 140 - 415 05 Physician s 10-3/UL /2002 at [facility] TSH 3.200 0.350 - 10/27 Physicians 5.500 /2002 at [facility] DIGOXIN 1.1 0.9 - 2.0 10/27 Physicians /2002 at [facility] HGBA1C 6.8 4.5 - 5.7 10/27 Physicians /2002 at [facility] BUN 15 5 - 26 10/27 Physicians /2002 at [facility] CREATININE 1.0 0.5 - 1.5 10/27 Physician s /2002 at [facility] BUN/CREAT 15 8 - 27 05 Physicians /2002 at [facility] SODIUM 142 135 - 148 10/27 Physicians /2002 at [facility] POTASSIUM 4.4 3.5 - 5.5 10/27 Physicians /2002 at [facility] CALCIUM 9.7 8.5 - 10.6 10/27 Physicians /2002 at [facility] ALBUMIN 4.3 3.5 - 4.8 10/27 Physicians /2002 at [facility] ALK PHOS 75 25 - 165 05 Physicians /2002 at [facility] SGOT (AST) 14 0 - 40 10/27 Physicians /2002 at [facility] SGPT (ALT) 9 0 - 40 10/27 Physicians /2002 at [facility] HGBA1C 6.9 4.5 - 5.7 06/20 Physicians /2002 at [facility] DIGOXIN 0.5 0.9 - 2.0 06/20 Physicians /2002 at [facility] CHOLESTEROL 181 100 - 199 06/20 Physicia ns /2002 at [facility] HDL 46 40 - 59 06/20 Physicians /2002 at [facility] VLDL 380.0 06/20 Physicians /2002 at [facility] LDL 97 0 - 99 06/20 Physicians /2002 at [facility] SODIUM 144 135 - 148 06/20 Physicians /2002 at [facility] POTASSIUM 4.3 3.5 - 5.5 06/20 Physicians /2002 at [facility] BUN 19 5 - 26 06/20 Physicians /2002 at [facility] CREATININE 0.9 0.5 - 1.5 06/20 Physician s /2002 at [facility] BUN/CREAT 21 06/20 Physicians /2002 at [facility] Reports No Data Provided for This Section Diagnostic Reports No Data Provided for This Section Consultation Notes No Data Provided for This Section Discharge Summaries No Data Provided for This Section History and Physicals No Data Provided for This Section Vital Signs Vital Sign Value Date Comments Source Height 63 10/17/2014 Physicians at [facility] Respitory Rate 18 10/17/2014 [facility] Weight 120.40 10/17/2014 Physicians at [facility] Temperature Oral (F) 97.8 F 10/17/2014 Physici ans at [facility] Heart Rate 72 10/17/2014 Physicians at [facility] Systolic (mm Hg) 179 10/17/2014 [facility] Diastolic (mm Hg) 66 10/17/2014 [facility] Height 63 08/07/2014 Physicians at [facility] Weight 122.38 08/07/2014 Physicians at [facility] Temperature Oral (F) 96.0 F 08/07/2014 Physici ans at [facility] Respitory Rate 18 08/07/2014 Physicians at [facility] Heart Rate 60 08/07/2014 Physicians at [facility] Systolic (mm Hg) 189 08/07/2014 [facility] Diastolic (mm Hg) 63 08/07/2014 [facility] Height 63 06/11/2014 Physicians at [facility] Weight 119.40 06/11/2014 Physicians at [facility] Temperature Oral (F) 96.4 F 06/11/2014 Physici ans at [facility] Respitory Rate 18 06/11/2014 Physicians at [facility] Heart Rate 80 06/11/2014 Physicians at [facility] Systolic (mm Hg) 160 06/11/2014 [facility] at [facility] Diastolic (mm Hg) 70 06/11/2014 [facility] Height 63 03/02/2014 Physicians at [facility] [place] Weight 118 03/02/2014 Physicians at [facility] Temperature Oral (F) 98.0 F 03/02/2014 Physici ans at [facility] Respitory Rate 18 03/02/2014 Physicians at [facility] Heart Rate 88 03/02/2014 Physicians at [facility] Systolic (mm Hg) 132 03/02/2014 [facility] at [facility] Diastolic (mm Hg) 67 03/02/2014 [facility] Height 63 02/20/2014 Physicians at [facility] Respitory Rate 18 02/20/2014 Physicians at [facility] Weight 118.60 02/20/2014 Physicians at [facility] Temperature Oral (F) 98.0 F 02/20/2014 Physici ans at [facility] Heart Rate 80 02/20/2014 Physicians at [facility] Systolic (mm Hg) 117 02/20/2014 Phys[facility] at [facility] Diastolic (mm Hg) 62 02/20/2014 Physicians at [facility] Weight 117 12/18/2013 Physicians at [facility] Temperature Oral (F) 97.5 F 12/18/2013 Physici ans at [facility] Respitory Rate 16 12/18/2013 Physicians at [facility] Heart Rate 84 12/18/2013 Physicians at [facility] Systolic (mm Hg) 133 12/18/2013 Phys[facility] at [facility] Diastolic (mm Hg) 56 12/18/2013 [facility] Height 63 12/18/2013 Physicians at [facility] Height 63 11/27/2013 Physicians at [facility] Weight 117.80 11/27/2013 Physicians at [facility] Temperature Oral (F) 97.9 F 11/27/2013 Physici ans at [facility] Respitory Rate 20 11/27/2013 Physicians at [facility] Heart Rate 81 11/27/2013 Physicians at [facility] Systolic (mm Hg) 123 11/27/2013 Phys[facility] at [facility] Diastolic (mm Hg) 56 11/27/2013 Phys[facility] at [facility] Height 63 08/10/2013 Physicians at [facility] Weight 118.50 08/10/2013 Physicians at [facility] Temperature Oral (F) 95.5 F 08/10/2013 Physici ans at [facility] Respitory Rate 18 08/10/2013 [facility] at [facility] Systolic (mm Hg) 175 08/10/2013 Phys[facility] at [facility] Diastolic (mm Hg) 65 08/10/2013 Physicians at [facility] Heart Rate 79 08/10/2013 [facility] [place] Height 63 06/21/2013 Physicians at [facility] Temperature Oral (F) 97.0 F 06/21/2013 Physici ans at [facility] Respitory Rate 18 06/21/2013 Physicians at [facility] Heart Rate 80 06/21/2013 [facility] [place] Systolic (mm Hg) 151 06/21/2013 Phys[facility] at [facility] Diastolic (mm Hg) 68 06/21/2013 Phys[facility] at [facility] Weight 118 06/21/2013 [facility] at [facility] [place] Height 63 06/12/2013 [facility] at [facility] [place] Weight 117.50 06/12/2013 Physicians at [facility] Temperature Oral (F) 97.2 F 06/12/2013 Physici ans at [facility] Respitory Rate 18 06/12/2013 Physicians at [facility] Heart Rate 82 06/12/2013 Physicians at [facility] Systolic (mm Hg) 150 06/12/2013 Phys[facility] at [facility] Diastolic (mm Hg) 68 06/12/2013 Phys[facility] at [facility] Height 63 11/22/2012 Physicians at [facility] [place] Weight 116 11/22/2012 Physicians at [facility] Temperature Oral (F) 96.7 F 11/22/2012 Physici ans at [facility] Respitory Rate 18 11/22/2012 Physicians at [facility] Systolic (mm Hg) 148 11/22/2012 Phys[facility] at [facility] Diastolic (mm Hg) 72 11/22/2012 Physicians at [facility] Heart Rate 80 11/22/2012 [facility] at [facility] [place] Respitory Rate 18 11/01/2012 Physicians at [facility] Temperature Oral (F) 97.0 F 11/01/2012 Physici ans at [facility] Height 63 11/01/2012 [facility] at [facility] [place] Weight 116 11/01/2012 [facility] at [facility] [place] Heart Rate 84 11/01/2012 Physicians at [facility] [place] Systolic (mm Hg) 149 11/01/2012 Phys[facility] at [facility] Diastolic (mm Hg) 68 11/01/2012 Physicians at [facility] Weight 118 07/05/2012 Physicians at [facility] Temperature Oral (F) 96.1 F 07/05/2012 Physici ans at [facility] Respitory Rate 16 07/05/2012 Physicians at [facility] Heart Rate 72 07/05/2012 Physicians at [facility] Systolic (mm Hg) 147 07/05/2012 Physicians at [facility] Diastolic (mm Hg) 67 07/05/2012 Physicians at [facility] Height 63 05/27/2012 Physicians at [facility] [place] Weight 119.13 05/27/2012 Physicians at [facility] Temperature Oral (F) 97.8 F 05/27/2012 Physici ans at [facility] Respitory Rate 14 05/27/2012 Physicians at [facility] Heart Rate 76 05/27/2012 Physicians at [facility] Systolic (mm Hg) 170 05/27/2012 Physicians at [facility] Diastolic (mm Hg) 66 05/27/2012 Physicians at [facility] Height 63 01/06/2012 Physicians at [facility] Weight 118.25 01/06/2012 Physicians at [facility] Temperature Oral (F) 98.6 F 01/06/2012 Physici ans at [facility] Respitory Rate 16 01/06/2012 Physicians at [facility] Heart Rate 88 01/06/2012 Physicians at [facility] Systolic (mm Hg) 106 01/06/2012 Phys[facility] at [facility] Diastolic (mm Hg) 50 01/06/2012 Phys[facility] at [facility] Height 63 12/15/2011 Physicians at [facility] Weight 117 12/15/2011 Physicians at [facility] Temperature Oral (F) 97.5 F 12/15/2011 Physici ans at [facility] Respitory Rate 18 12/15/2011 Physicians at [facility] Heart Rate 72 12/15/2011 Physicians at [facility] Systolic (mm Hg) 150 12/15/2011 Physicians at [facility] Diastolic (mm Hg) 70 12/15/2011 Physicians at [facility] Height 63 09/11/2011 Physicians at [facility] Weight 118.25 09/11/2011 Physicians at [facility] Temperature Oral (F) 96.6 F 09/11/2011 Physici ans at [facility] Respitory Rate 20 09/11/2011 Physicians at [facility] Heart Rate 70 09/11/2011 Physicians at [facility] [place] Systolic (mm Hg) 90 09/11/2011 Physicians at [facility] Diastolic (mm Hg) 50 09/11/2011 Phys[facility] at [facility] Height 63 08/26/2011 Physicians at [facility] [place] Weight 117.13 08/26/2011 Physicians at [facility] [place] Temperature Oral (F) 97.4 F 08/26/2011 Physici ans at [facility] Respitory Rate 16 08/26/2011 Physicians at [facility] Heart Rate 76 08/26/2011 Physicians at [facility] [place] Systolic (mm Hg) 120 08/26/2011 Phys[facility] at [facility] Diastolic (mm Hg) 40 08/26/2011 Phys[facility] at [facility] Height 63 03/10/2011 Physicians at [facility] [place] Weight 113.80 03/10/2011 Physicians at [facility] Temperature Oral (F) 97.5 F 03/10/2011 Physici ans at [facility] Respitory Rate 20 03/10/2011 Physicians at [facility] Heart Rate 84 03/10/2011 Physicians at [facility] [place] Systolic (mm Hg) 110 03/10/2011 Phys[facility] at [facility] Diastolic (mm Hg) 56 03/10/2011 Physicians at [facility] Height 63 10/28/2010 Physicians at [facility] [place] Weight 114 10/28/2010 [facility] at [facility] [place] Temperature Oral (F) 96.9 F 10/28/2010 Physici ans at [facility] Respitory Rate 18 10/28/2010 Physicians at [facility] Heart Rate 68 10/28/2010 Physicians at [facility] [place] Systolic (mm Hg) 118 10/28/2010 Phys[facility] at [facility] Diastolic (mm Hg) 52 10/28/2010 Phys[facility] at [facility] Height 63 08/11/2010 [facility] at [facility] [place] Weight 114 08/11/2010 [facility] at [facility] [place] Temperature Oral (F) 97.4 F 08/11/2010 Physici ans at [facility] Respitory Rate 16 08/11/2010 Physicians at [facility] Heart Rate 68 08/11/2010 Physicians at [facility] [place] Systolic (mm Hg) 122 08/11/2010 Phys[facility] at [facility] Diastolic (mm Hg) 64 08/11/2010 Phys[facility] at [facility] Height 63 03/26/2010 Physicians at [facility] [place] Weight 116.8 03/26/2010 Physicians at [facility] [place] Temperature Oral (F) 97.9 F 03/26/2010 Physici ans at [facility] Respitory Rate 18 03/26/2010 Physicians at [facility] Heart Rate 81 03/26/2010 Physicians at [facility] [place] Systolic (mm Hg) 140 03/26/2010 Physicians at [facility] Diastolic (mm Hg) 69 03/26/2010 Physicians at [facility] Height 63 02/12/2010 Physicians at [facility] [place] Weight 121 02/12/2010 Physicians at [facility] Temperature Oral (F) 98.4 F 02/12/2010 Physici ans at [facility] Respitory Rate 16 02/12/2010 Physicians at [facility] Heart Rate 76 02/12/2010 Physicians at [facility] [place] Systolic (mm Hg) 174 02/12/2010 Physicians at [facility] Diastolic (mm Hg) 60 02/12/2010 Physicians at [facility] Weight 119.50 01/28/2010 Physicians at [facility] Temperature Oral (F) 97.0 F 01/28/2010 Physici ans at [facility] Respitory Rate 16 01/28/2010 Physicians at [facility] Heart Rate 68 01/28/2010 Physicians at [facility] [place] Systolic (mm Hg) 116 01/28/2010 Physicians at [facility] Diastolic (mm Hg) 50 01/28/2010 Physicians at [facility] Systolic (mm Hg) 130 09/08/2009 Physicians at [facility] Diastolic (mm Hg) 70 09/08/2009 Physicians at [facility] Weight 121 09/03/2009 Physicians at [facility] [place] Temperature Oral (F) 97.4 F 09/03/2009 Physici ans at [facility] Respitory Rate 20 09/03/2009 Physicians at [facility] Heart Rate 72 09/03/2009 Physicians at [facility] [place] Systolic (mm Hg) 130 09/03/2009 Physicians at [facility] Diastolic (mm Hg) 70 09/03/2009 Physicians at [facility] Systolic (mm Hg) 130 08/29/2009 Physicians at [facility] Diastolic (mm Hg) 60 08/29/2009 Physicians at [facility] Weight 121 08/27/2009 Physicians at [facility] [place] Temperature Oral (F) 97.7 F 08/27/2009 Physici ans at [facility] Respitory Rate 18 08/27/2009 Physicians at [facility] Heart Rate 82 08/27/2009 Physicians at [facility] [place] Systolic (mm Hg) 130 08/27/2009 Physicians at [facility] Diastolic (mm Hg) 60 08/27/2009 Physicians at [facility] Weight 121.38 06/17/2009 Physicians at [facility] [place] Temperature Oral (F) 97 F 06/17/2009 [facility] [place] Respitory Rate 18 06/17/2009 [facility] [place] Heart Rate 74 06/17/2009 [facility] [place] Systolic (mm Hg) 110 06/17/2009 [facility] [place] Diastolic (mm Hg) 70 06/17/2009 [facility] [place] Weight 121 10/29/2008 [facility] [place] Systolic (mm Hg) 134 10/29/2008 [facility] [place] Diastolic (mm Hg) 60 10/29/2008 [facility] [place] Respitory Rate 14 10/29/2008 [facility] [place] Heart Rate 77 10/29/2008 [facility] [place] Temperature Oral (F) 97.2 F 10/29/2008 [facility] [place] Weight 127 07/26/2008 [facility] [place] Temperature Oral (F) 97.4 F 07/26/2008 [facility] [place] Respitory Rate 18 07/26/2008 [facility] [place] Heart Rate 72 07/26/2008 [facility] [place] Systolic (mm Hg) 150 07/26/2008 [facility] [place] Diastolic (mm Hg) 60 07/26/2008 [facility] [place] Weight 123.50 07/17/2008 [facility] [place] Temperature Oral (F) 98.7 F 07/17/2008 [facility] [place] Heart Rate 72 07/17/2008 [facility] [place] Respitory Rate 14 07/17/2008 [facility] [place] Systolic (mm Hg) 149 07/17/2008 [facility] [place] Diastolic (mm Hg) 51 07/17/2008 [facility] [place] Weight 125 11/08/2007 [facility] [place] Temperature Oral (F) 95.9 F 11/08/2007 [facility] [place] Respitory Rate 16 11/08/2007 [facility] [place] Heart Rate 68 11/08/2007 [facility] [place] Systolic (mm Hg) 120 11/08/2007 [facility] [place] Diastolic (mm Hg) 54 11/08/2007 [facility] [place] Weight 124 08/02/2007 [facility] [place] Temperature Oral (F) 97.0 F 08/02/2007 [facility] [place] Heart Rate 72 08/02/2007 [facility] [place] Respitory Rate 14 08/02/2007 [facility] [place] Systolic (mm Hg) 140 08/02/2007 [facility] [place] Diastolic (mm Hg) 70 08/02/2007 [facility] [place] Weight 126.5 02/11/2007 [facility] [place] Temperature Oral (F) 96.8 F 02/11/2007 [facility] [place] Respitory Rate 18 02/11/2007 [facility] [place] Heart Rate 71 02/11/2007 [facility] [place] Systolic (mm Hg) 148 02/11/2007 [facility] [place] Diastolic (mm Hg) 55 02/11/2007 [facility] [place] Weight 128 12/14/2006 [facility] [place] Temperature Oral (F) 98.6 F 12/14/2006 [facility] [place] Respitory Rate 20 12/14/2006 [facility] [place] Heart Rate 100 12/14/2006 [facility] [place] Systolic (mm Hg) 124 12/14/2006 [facility] [place] Diastolic (mm Hg) 64 12/14/2006 [facility] [place] Weight 127.5 11/26/2006 [facility] [place] Respitory Rate 20 11/26/2006 [facility] [place] Heart Rate 64 11/26/2006 [facility] [place] Systolic (mm Hg) 140 11/26/2006 [facility] [place] Diastolic (mm Hg) 66 11/26/2006 [facility] [place] Temperature Oral (F) 98.1 F 11/26/2006 [facility] [place] Weight 126 10/21/2006 [facility] [place] Temperature Oral (F) 98 F 10/21/2006 [facility] [place] Respitory Rate 18 10/21/2006 [facility] [place] Heart Rate 80 10/21/2006 [facility] [place] Systolic (mm Hg) 130 10/21/2006 [facility] [place] Diastolic (mm Hg) 70 10/21/2006 [facility] [place] Weight 130 08/10/2006 [facility] [place] Temperature Oral (F) 96.8 F 08/10/2006 [facility] [place] Respitory Rate 18 08/10/2006 [facility] [place] Heart Rate 80 08/10/2006 [facility] [place] Systolic (mm Hg) 140 08/10/2006 [facility] [place] Diastolic (mm Hg) 80 08/10/2006 [facility] [place] Weight 129 06/09/2006 [facility] [place] Temperature Oral (F) 96 F 06/09/2006 [facility] [place] Respitory Rate 16 06/09/2006 [facility] [place] Heart Rate 76 06/09/2006 [facility] [place] Systolic (mm Hg) 100 06/09/2006 [facility] [place] Diastolic (mm Hg) 70 06/09/2006 [facility] [place] Weight 131.5 03/26/2006 [facility] [place] Temperature Oral (F) 97.8 F 03/26/2006 [facility] [place] Respitory Rate 18 03/26/2006 [facility] [place] Systolic (mm Hg) 138 03/26/2006 [facility] [place] Diastolic (mm Hg) 76 03/26/2006 [facility] [place] Heart Rate 84 03/26/2006 [facility] [place] Weight 131 12/28/2005 [facility] [place] Systolic (mm Hg) 130 12/28/2005 [facility] [place] Diastolic (mm Hg) 70 12/28/2005 [facility] [place] Heart Rate 72 12/28/2005 [facility] [place] Respitory Rate 18 12/28/2005 [facility] [place] Temperature Oral (F) 97.8 F 12/28/2005 [facility] [place] Temperature Oral (F) 96.8 F 2005 [facility] [place] Respitory Rate 20 2005 [facility] [place] Heart Rate 78 2005 [facility] [place] Systolic (mm Hg) 128 2005 [facility] [place] Diastolic (mm Hg) 64 2005 [facility] [place] Weight 131 11/12/2005 [facility] [place] Temperature Oral (F) 98.3 F 11/12/2005 [facility] [place] Respitory Rate 20 11/12/2005 [facility] [place] Heart Rate 76 11/12/2005 [facility] [place] Systolic (mm Hg) 162 11/12/2005 [facility] [place] Diastolic (mm Hg) 76 11/12/2005 [facility] [place] Weight 130 11/06/2005 [facility] [place] Temperature Oral (F) 98.0 F 11/06/2005 [facility] [place] Heart Rate 84 11/06/2005 [facility] [place] Respitory Rate 20 11/06/2005 [facility] [place] Systolic (mm Hg) 140 11/06/2005 [facility] [place] Diastolic (mm Hg) 70 11/06/2005 [facility] [place] Weight 129 08/11/2005 [facility] [place] Temperature Oral (F) 94.5 F 08/11/2005 [facility] [place] Respitory Rate 20 08/11/2005 [facility] [place] Systolic (mm Hg) 150 08/11/2005 [facility] [place] Diastolic (mm Hg) 70 08/11/2005 [facility] [place] Heart Rate 80 08/11/2005 [facility] [place] Temperature Oral (F) 97.8 F 08/04/2005 [facility] [place] Respitory Rate 18 08/04/2005 [facility] [place] Heart Rate 76 08/04/2005 [facility] [place] Systolic (mm Hg) 130 08/04/2005 [facility] [place] Diastolic (mm Hg) 60 08/04/2005 [facility] [place] Temperature Oral (F) 95.3 F 07/24/2005 [facility] [place] Heart Rate 72 07/24/2005 [facility] [place] Respitory Rate 18 07/24/2005 [facility] [place] Systolic (mm Hg) 138 07/24/2005 [facility] [place] Diastolic (mm Hg) 68 07/24/2005 [facility] [place] Weight 133 03/12/2004 [facility] [place] Temperature Oral (F) 98 F 03/12/2004 [facility] [place] Heart Rate 72 03/12/2004 [facility] [place] Respitory Rate 18 03/12/2004 [facility] [place] Systolic (mm Hg) 140 03/12/2004 [facility] [place] Diastolic (mm Hg) 70 03/12/2004 [facility] [place] Weight 134 12/05/2003 [facility] [place] Temperature Oral (F) 98.2 F 12/05/2003 [facility] [place] Heart Rate 72 12/05/2003 [facility] [place] Respitory Rate 20 12/05/2003 [facility] [place] Systolic (mm Hg) 120 12/05/2003 [facility] [place] Diastolic (mm Hg) 76 12/05/2003 [facility] [place] Weight 129 11/02/2003 [facility] [place] Systolic (mm Hg) 160 11/02/2003 [facility] [place] Diastolic (mm Hg) 68 11/02/2003 [facility] [place] Heart Rate 76 11/02/2003 [facility] [place] Respitory Rate 20 11/02/2003 [facility] [place] Temperature Oral (F) 97.1 F 11/02/2003 [facility] [place] Height 63 04/04/2003 [facility] [place] Temperature Oral (F) 97.9 F 04/04/2003 [facility] [place] Heart Rate 75 04/04/2003 [facility] [place] Weight 128 04/04/2003 [facility] [place] Respitory Rate 20 04/04/2003 [facility] [place] Systolic (mm Hg) 130 04/04/2003 [facility] [place] Diastolic (mm Hg) 50 04/04/2003 [facility] [place] Weight 134.5 03/05/2003 [facility] [place] Temperature Oral (F) 96.6 F 03/05/2003 [facility] [place] Heart Rate 68 03/05/2003 [facility] [place] Respitory Rate 16 03/05/2003 [facility] [place] Systolic (mm Hg) 138 03/05/2003 [facility] [place] Diastolic (mm Hg) 70 03/05/2003 [facility] [place] Heart Rate 84 10/26/2002 [facility] [place] Respitory Rate 18 10/26/2002 [facility] [place] Systolic (mm Hg) 146 10/26/2002 [facility] [place] Diastolic (mm Hg) 80 10/26/2002 [facility] at [facility] Oral (F) 95.9 F 10/26/2002 [facility] [place] Weight 128 10/26/2002 [facility] at [facility] Weight 132 06/19/2002 [facility] at [facility] Temperature Oral (F) 96.5 F 06/19/2002 [facility] [place] Heart Rate 78 06/19/2002 [facility] at [facility] Respitory Rate 20 06/19/2002 [facility] [place] Systolic (mm Hg) 146 06/19/2002 [facility] [place] Diastolic (mm Hg) 72 06/19/2002 [facility] [place] Systolic (mm Hg) 150 02/08/2002 [facility] [place] Diastolic (mm Hg) 68 02/08/2002 [facility] [place] Weight 129 02/08/2002 [facility] at [facility] Heart Rate 76 02/08/2002 [facility] at [facility] Respitory Rate 20 02/08/2002 [facility] at [facility] Oral (F) 97.7 F 02/08/2002 [facility] [place] Encounters Location Location Encounter Encounter Reason Attending ADM OR Stat us Source Details Type Number For Provider Date Date Visit [facility] Lab Report [id number] [facility] 06/11 06/11 Physician Family [id number] David MOLINA /2014 s at [facility] Lab Report [id number] [facility] 10/17 10/17 Physician at [place] [id number] David MOLINA /2014 s at [facility] Procedures Procedure Code Date Perfomer Comments Source bone density 4002.65 08/10/2006 Completed at [facility] at [facility] colonoscopy 21652 07/01/2005 no polyps [facility] [place] diabetic eye exam 08641.1 11/02/2003 Done within [facility] at past year [place] vaginal Pap smear 97963 04/04/2003 done today Physici [facility] at results [place] diabetic foot [id number] 06/19/2002 Diabetic Foot Physicia [facility] at check Exam Done Today [facility] mammogram [id number] 08/12/2001 DONE [facility] [place] Assessment and Plan No Data Provided for This Section Plan of Care No Data Provided for This Section Social History No Data Provided for This Section Family History No Data Provided for This Section Advance Directives Order Name Results Value Date Source Advance Directives Advance Directives DISCUSSED - NO 11/01/2012 [facility] [employer] [place] Advance Directives Advance Directives ADVANCED 12/16/2002 Gabbie harmon at DIRECTIVE ON FILE [employer]esha k Advance Directives Advance Directives DISCUSSED - NO 02/08/2002 [email or web address] [employer] [place] Functional Status No Data Provided for This Section
--- OUTSIDE RECORDS SUMMARY | 2020-04-16 08:44 | XMS REPORT | Continuity of Care Document ---
:[address] 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 and other specified forms of tremor Active 06/11/2014 Condition [facility] Unsteady Condition Active 2014-10-17 M emoria gait - 09:31:56 l Unsteady 00:00: Hemant n gait 00 Active 06/11/2014 Condition 5 [facility] Body Mass Condition Active 2013-052014-10-17 Memoria Index 0-06 09:31:56 l between Body 00:00: Tim 19-24 Mass Index 00 Adult between 19-24 Adult Active 03/05/2014 Condition 5 [facility] HIP PAIN, Condition Active 2014-10-17 Memoria RIGHT 06-21 09:31:56 l HIP 00:00: Tim PAIN, 00 RIGHT Active 06/21/2013 Condition 5 [facility] MILD Condition Active 2014-10-17 Mem oria 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 09:31:56 l IMPAIRMENT MILD 00:00: Hemant n SO 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 Active 07/05/2012 Condition 5 [facility] DIABETIC Condition Active 2010-052014-10-17 M stefano NEPHROPATH 0- 09:31:56 l Y (BOTH DIABETIC 00:00: Rose nn CODES NEPHROPATH 00 REQD) Y (BOTH CODES REQD) Active 03/10/2011 Condition 5 [facility] DIABETES, Condition Active 2010-052014-10-17 Memoria TYPE 2, 0- 09:31:56 l UNCONTROLD 00:00: Hemant n , W/RENAL DIABETES, 00 COMP TYPE 2, UNCONTROLD , W/RENAL COMP Active 03/10/2011 Condition 5 [facility] IRRITABLE Condition Active 2010-052014-10-17 Memoria BOWEL 0- 09:31:56 l SYNDROME 00:00: Willard IRRITABLE 00 BOWEL SYNDROME Active 03/10/2011 Condition 5 [facility] VITAMIN Condition Active 2009-052014-10-17 Mi moria B12 1- 09:31:56 l DEFICIENCY VITAMIN 00:00: Her dubois B12 00 DEFICIENCY Active 03/31/2010 Condition 5 [facility] HYPOTHYROI Condition Active 2014-10-17 Memoria DISM 02-12 09:31:56 l 00:00: Tim HYPOTHYROI 00 DISM Active 02/12/2010 Condition 5 [facility] ANEMIA, Condition Active 2014-10-17 Me moria NORMOCYTIC 02-12 09:31:56 l ANEMIA, 00:00: Tim NORMOCYTIC 00 Active 02/12/2010 Condition 5 [facility] OSTEOPENIA Condition Active 2014-10-17 Memoria 6- 09:31:56 l 00:00: Tim OSTEOPENIA 00 Active 10/31/2008 Condition 5 [facility] NEOPLASM, Condition Active 2007-052014-10-17 Memoria MALIGNANT, 0 09:31:56 l BREAST, 00:00: Tim LEFT NEOPLASM, 00 MALIGNANT, BREAST, LEFT Active 03/05/2008 Condition 5 [facility] CHRONIC Condition Active 2014-10-17 Me moria KIDNEY DIS 11-19 09:31:56 l STAGE III CHRONIC 00:00: Herm baljeet (MOD)--EGF KIDNEY DIS 00 R 55 STAGE III (MOD)--EGF R 55 Active 11/19/2006 Condition 5 [facility] GLAUCOMA Condition Active 2014-10-17 M emoria NOS 12-28 09:31:56 l GLAUCOMA 00:00: Hemant n NOS 00 Active 12/28/2005 Condition 5 [facility] GERD Condition Active 2014-10-17 Mem oria 6 09:31:56 l GERD 00:00: Tim 00 Active 11/06/2005 Condition 5 [facility] ALLERGIC Condition Active 2014-10-17 M emoria RHINITIS 08-04 09:31:56 l ALLERGIC 00:00: Hemant n RHINITIS 00 Active 08/04/2005 Condition 5 [facility] DIVERTICUL Condition Active 2014-10-17 Memoria OSIS 07-24 09:31:56 l 00:00: Tim DIVERTICUL 00 OSIS Active 07/24/2005 Condition 5 [facility] HYPERTENSI Condition Active 2014-10-17 Memoria ON 07-24 09:31:56 l 00:00: Tim HYPERTENSI 00 ON Active 6 Condition 10/17/2014 [facility] HYPERLIPID Condition Active 2014-10-17 Memoria EMIA, 12-04 09:31:56 l MIXED 00:00: Willard 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, MIXED Active 12/05/2003 Condition 5 [facility] PERIPHERAL Condition Active 2014-10-17 Memoria NEUROPATHY 06-20 09:31:56 l 00:00: Tim PERIPHERAL 00 NEUROPATHY Active 06/20/2002 Condition 5 [facility] IRREGULAR Condition Active 2014-10-17 Memoria HEART RATE 06-19 09:31:56 l 00:00: Tim IRREGULAR 00 HEART RATE Active 06/19/2002 Condition 5 [facility] DIABETES Condition Active 2014-10-17 M emoria MELLITUS, 05-31 09:31:56 l TYPE II, DIABETES 00:00: Herm baljeet CONTROLLED MELLITUS, 00 , W/NEURO TYPE II, COMPS CONTROLLED , W/NEURO COMPS Active 05/31/1988 Condition 5 [facility] Vitamin D Condition Active 2014-10-17 Memoria Deficiency 09:31:56 l Vitamin Willard D Deficiency 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 History of Past Illness Condition Condition Condition Status Onset Resolution Last Treating Co mments Source Name Details Category Date Date Treatment Clinician Date Periodonta Condition Inactiv 2014-10-17 2014-10-17 Memoria l disease e 11-27 09:31:56 09:31:56 l 00:00: Tim Periodonta 00 l disease Inactive 11/27/2013 Condition 5 [facility] Caries, Condition Inactiv 2014-10-17 2014-10-17 Memoria dental e 11-27 09:31:56 09:31:56 l Caries, 00:00: Willard dental 00 Inactive 11/27/2013 Condition 5 [facility] SPRAIN&STR Condition Inactiv 2014-10-17 2014-10-17 Memoria AIN OTHER e 06-21 09:31:56 09:31:56 l SPECIFIED 00:00: Willard SITES SPRAIN&STR 00 KNEE&LEG AIN OTHER SPECIFIED SITES KNEE&LEG Inactive 06/21/2013 Condition 5 [facility] BODY MASS Condition Inactiv 2014-10-17 2014-10-17 Memoria INDEX e 06-12 09:31:56 09:31:56 l BETWEEN BODY 00:00: Tim 19-24 MASS INDEX 00 ADULT BETWEEN 19-24 ADULT Inactive 06/12/2013 Condition 5 [facility] ABDOMINAL Condition Inactiv 2014-10-17 2014-10-17 Memoria PAIN, e 11-22 09:31:56 09:31:56 l GENERALIZE 00:00: Hemant n D ABDOMINAL 00 PAIN, GENERALIZE D Inactive 11/22/2012 Condition 5 [facility] CONSTIPATI Condition Inactiv 2014-10-17 2014-10-17 Memoria ON e 11-22 09:31:56 09:31:56 l 00:00: Tim CONSTIPATI 00 ON Inactive 11/22/2012 Condition 5 [facility] GRIEF Condition Inactiv 2014-10-17 2014-10-17 Memoria REACTION e 2-05 09:31:56 09:31:56 l GRIEF 00:00: Tim REACTION 00 Inactive 07/05/2012 Condition 5 [facility] EYE PAIN Condition Inactiv 2011-052014-10-17 2014-10-17 Memoria e 2-17 09:31:56 09:31:56 l EYE PAIN 00:00: Hemant n 00 Inactive 05/16/2012 Condition 5 [facility] HYDRONEPHR Condition Inactiv 2011-052014-10-17 2014-10-17 Memoria OSIS, e 0-25 09:31:56 09:31:56 l BILATERAL 00:00: Willard HYDRONEPHR 00 OSIS, BILATERAL Inactive 03/24/2012 Condition 5 [facility] MICROSCOPI Condition Inactiv 2011-052014-10-17 2014-10-17 Memoria C e 0-25 09:31:56 09:31:56 l HEMATURIA 00:00: Willard MICROSCOPI 00 C HEMATURIA Inactive 03/24/2012 Condition 5 [facility] TENDINITIS Condition Inactiv 2014-10-17 2014-10-17 Memoria , RIGHT e 7- 09:31:56 09:31:56 l KNEE 00:00: Tim TENDINITIS 00 , RIGHT KNEE Inactive 12/15/2011 Condition 5 [facility] BICEPS Condition Inactiv 2014-10-17 2014-10-17 Memoria TENDINITIS e 4- 09:31:56 09:31:56 l , RIGHT BICEPS 00:00: Tim TENDINITIS 00 , RIGHT Inactive 09/11/2011 Condition 5 [facility] FLU Condition Inactiv 2010-052014-10-17 2014-10-17 Memoria VACCINE e 0-11 09:31:56 09:31:56 l FLU 00:00: Tim VACCINE 00 Inactive 03/10/2011 Condition 5 [facility] OTHER Condition Inactiv 2014-10-17 2014-10-17 Memoria SCREENING e 8-02 09:31:56 09:31:56 l MAMMOGRAM OTHER 00:00: Hemnat n SCREENING 00 MAMMOGRAM Inactive 12/30/2010 Condition 5 [facility] THROMBOCYT Condition Inactiv 2014-10-17 2014-10-17 Memoria OPENIA e 3-18 09:31:56 09:31:56 l 00:00: Willard THROMBOCYT 00 OPENIA Inactive 08/15/2010 Condition 5 [facility] URI Condition Inactiv 2014-10-17 2014-10-17 Memoria e 3 09:31:56 09:31:56 l URI 00:00: Tim 00 Inactive 08/27/2009 Condition 5 [facility] UTI Condition Inactiv 2014-10-17 2014-10-17 Memoria e 6 09:31:56 09:31:56 l UTI 00:00: Willard 00 Inactive 10/29/2008 Condition 5 [facility] ABFND, Condition Inactiv 2014-10-17 2014-10-17 Memoria RADIOLOGIC e 2- 09:31:56 09:31:56 l AL, ABFND, 00:00: Tim BREAST, RADIOLOGIC 00 MAMMOGRAM AL, NOS BREAST, MAMMOGRAM NOS Inactive 07/26/2008 Condition 5 [facility] TRIGGER Condition Inactiv 2014-10-17 2014-10-17 Memoria FINGER, e 6 09:31:56 09:31:56 l RIGHT TRIGGER 00:00: Willard MIDDLE FINGER, 00 RIGHT MIDDLE Inactive 11/08/2007 Condition 5 [facility] INSOMNIA, Condition Inactiv 2014-10-17 2014-10-17 Memoria PERSISTENT e 12-14 09:31:56 09:31:56 l 00:00: Willard INSOMNIA, 00 PERSISTENT Inactive 12/14/2006 Condition 5 [facility] HAY FEVER Condition Inactiv 2014-10-17 2014-10-17 Memoria e 10-21 09:31:56 09:31:56 l HAY 00:00: Tim FEVER 00 Inactive 10/21/2006 Condition 5 [facility] VACCINE Condition Inactiv 2014-10-17 2014-10-17 Memoria AGAINST e 10-21 09:31:56 09:31:56 l INFLUENZA VACCINE 00:00: Herm baljeet AGAINST 00 INFLUENZA Inactive 10/21/2006 Condition 5 [facility] WELL WOMAN Condition Inactiv 2014-10-17 2014-10-17 Memoria e - 09:31:56 09:31:56 l WELL 00:00: Willard WOMAN 00 Inactive 10/21/2006 Condition 5 [facility] SCIATICA Condition Inactiv 2014-10-17 2014-10-17 Memoria e 3- 09:31:56 09:31:56 l SCIATICA 00:00: Hemant n 00 Inactive 08/10/2006 Condition 5 [facility] SYMPTOM, Condition Inactiv 2014-10-17 2014-10-17 Memoria COUGH e 12-28 09:31:56 09:31:56 l SYMPTOM, 00:00: Hemant n COUGH 00 Inactive 12/28/2005 Condition 5 [facility] U T I Condition Inactiv 2014-10-17 2014-10-17 Memoria e 6- 09:31:56 09:31:56 l U T I 00:00: Willard 00 Inactive 11/12/2005 Condition 5 [facility] SINUSITIS, Condition Inactiv 2014-10-17 2014-10-17 Memoria ACUTE e 3- 09:31:56 09:31:56 l 00:00: Tim SINUSITIS, 00 ACUTE Inactive 08/11/2005 Condition 5 [facility] DYSPNEA Condition Inactiv 2014-10-17 2014-10-17 Memoria e - 09:31:56 09:31:56 l DYSPNEA 00:00: Willard 00 Inactive 07/24/2005 Condition 5 [facility] CHEST PAIN Condition Inactiv 2014-10-17 2014-10-17 Memoria e - 09:31:56 09:31:56 l CHEST 00:00: Willard PAIN 00 Inactive 07/24/2005 Condition 5 [facility] FATIGUE Condition Inactiv 2014-10-17 2014-10-17 Memoria e 2-24 09:31:56 09:31:56 l FATIGUE 00:00: Willard 00 Inactive 07/24/2005 Condition 5 [facility] ABDOMINAL Condition Inactiv 2014-10-17 2014-10-17 Memoria PAIN, e 2- 09:31:56 09:31:56 l EPIGASTRIC 00:00: Hemant n ABDOMINAL 00 PAIN, EPIGASTRIC Inactive 07/24/2005 Condition 5 [facility] HEMATURIA [facility] Inactiv 2014-10-17 2014-10-17 Memoria e 07-24 09:31:56 09:31:56 l 00:00: Willard HEMATURIA 00 Inactive 07/24/2005 Condition 5 [facility] DISEASE, Condition Inactiv 2002-052014-10-17 2014-10-17 Memoria PANCREAS e 2- 09:31:56 09:31:56 l NOS DISEASE, 00:00: Hemant n PANCREAS 00 NOS Inactive 05/02/2003 Condition 5 [facility] ABDOMINAL Condition Inactiv 2002-052014-10-17 2014-10-17 Memoria PAIN e 0- 09:31:56 09:31:56 l 00:00: Willard ABDOMINAL 00 PAIN Inactive 03/06/2003 Condition 5 [facility] ABDOMEN, Condition Inactiv 2014-10-17 2014-10-17 Memoria ACUTE e 02-10 09:31:56 09:31:56 l ABDOMEN, 00:00: Hemant n ACUTE 00 Inactive 02/10/2002 Condition 5 [facility] Allergies, Adverse Reactions, Alerts Allergy Allergy Status Severity Reaction(s) Onset Inactive Treating Comm ents Source Name Type Date Date Clinician BACTRIM BACTRIM Active Memoria 9-11 l 00:00: Willard 00 INDERAL INDERAL Active Memoria 9-11 l 00:00: Willard 00 TENORMIN TENORMIN Active Memori a 9-11 l 00:00: Willard 00 Medications Ordered Filled Start Stop Current Ordering Indication Dosage Frequency Signature Comments Components Source Medication Medication Date Date Medication? Clinician (SIG) Name Name MELOXICAM Yes Memoria 15 MG TABS 1-12 l 00:00: HANDICAP Yes place Memoria PLACARD 1-12 placard in l 00:00: car SHINGLES Yes place 1 Memori a VACCINE 1-12 shingles l 00:00: vaccine PROPRANOLOL Yes 1 tab po Me moria HCL 40 MG 1-12 twice a l TABS 00:00: day for tremor TRAMADOL No 1 tab po Memor ia HCL 50 MG 9-23 q4h as l TABS 00:00: needed for pain TRAMADOL No 1 tab po Memor ia HCL 50 MG 9-23 q4h as l TABS 00:00: needed for pain [id number] [id number] Yes 1 tab po Me moria UNIT CAPS 7-08 weekly x 8 l 00:00: weeks GABAPENTIN Yes take 2 Memor ia 100 MG CAPS 4-07 caps po l 00:00: twice a day for neuropathy TRAMADOL No 1 tab by Memor ia HCL 50 MG 1-22 mouth l TABS 00:00: every 8 Willard 00 hours as needed for pain TRAMADOL No 1 tab by Memor ia HCL 50 MG 1-22 mouth l TABS 00:00: every 8 Willard 00 hours as needed for pain BRIMONIDINE Yes Memori a TARTRATE 1-13 l 0.15 % SOLN 00:00: Hemant n BISACODYL No 1 tablet Miguel scott 10 MG SUPP 6-25 BID per l 00:00: rectum for your constipati on LACTULOSE No 15mL PO Memor ia 10 GM/15ML 6-25 BID PRN l SOLN 00:00: constipati on TRAVATAN Z Yes Instil one M emoria 0.004 % 6-04 drop in l SOLN 00:00: each eye q hs. CYMBALTA 20 No 1 tablet Me moria MG CPEP 6-04 PO daily l 00:00: for your neuropathi c pain FRESHKOTE Yes eye gtts Mgiuel scott 2.7-2 % 2-05 tid l SOLN 00:00: LOVASTATIN Yes 1 tablet Mem oria 10 MG TABS 2-05 PO QHS for l 00:00: your cholestero l LANTUS 100 Yes 10 units Mem oria UNIT/ML 2-05 SQ in AM l SOLN 00:00: for Diabetes LANTUS 100 Yes 13 units Mem oria UNIT/ML 2-05 SQ in AM l SOLN 00:00: for Diabetes MOBIC 15 MG No 1 tablet Me moria TABS 7-17 PO daily l 00:00: PRN pain KROGER TEST 2010-05 No Use with Me moria STRP 0-13 glucometer l 00:00: to test blood sugar 4 times daily. BENTYL 20 2010-05 No Take one Miguel scott MG TABS 0-11 tab by l 00:00: mouth three times daily. COZAAR 25 No 1/2 tablet Me moria MG TABS 3-14 PO Daily l 00:00: for Blood Pressure VITAMIN 2009-05 Yes One PO Memoria B-12 1000 1-01 Daily for l MCG TABS 00:00: B12 Deficiency LEVOTHYROXI Yes 1 tab po Me moria NE SODIUM 9-20 daily for l 50 MCG TABS 00:00: thyroid Her BENADRYL Yes 1 po at hs Mem oria ALLERGY 9-15 prn l CAPS 00:00: CALCIUM 600 No 1 po bid Me moria TABS 9-15 l 00:00: ALPHA-LIPOI Yes 1 po bid Me moria C ACID 200 9-15 l MG CAPS 00:00: HYDROCODONE No take 1 tsp Memoria -HOMATROPIN 3-31 q 4 hrs l E 5-1.5 00:00: prn cough Rose nn MG/5ML SYRP 00 BENZONATATE No take 1 tab Memoria 200 MG CAPS 3-30 po tid prn l 00:00: cough AZOPT 1 % No 1 drop Memori a SUSP 3-30 each eye l 00:00: CALCIUM 600 No Memori a MG TABS 6-01 l 00:00: FISH OIL No 1 tab in Memor ia 1000 MG - the l CAPS 00:00: morning and 1 tab at night CIPRO 250 No Take one Miguel scott MG TABS 6-01 po BID for l 00:00: 3 days. LYRICA 50 No one by Memori a MG CAPS 6-01 mouth l 00:00: three Willard 00 times a day for foot pain, increasing to 2 po TID over the first week FLUOROMETHO No Memori a LONE 0.1 % 6-01 l SUSP 00:00: HUMULIN N No 20 units Miguel scott 100 U/ML 6-01 in morning l SUSPN 00:00: sq, 12 Willard 00 units sq in evening TAMOXIFEN No Take one Miguel scott CITRATE 20 - table by l MG TABS 00:00: mouth daily HUMULIN N No 20 units Miguel scott 100 U/ML 6-01 in morning l SUSPN 00:00: sq, 12 Tim 00 units sq in evening PREMARIN No 1 po daily Mem oria 0.625 MG 3-13 l TAB 00:00: ALPHA-LIPOI 2005-05 No takes 1 Mem oria C ACID 50 0-27 tablet at l MG CAPS 00:00: night NASONEX 50 2005-05 No 2 sprays Mem oria MCG/ACT 0-27 each l SUSP 00:00: nostril q Willard 00 day DIMITRI 180 2005-05 No Take one Me moria MG TABS 0-27 tablet po l 00:00: q Daily Willard 00 TUSSIONEX 2005-05 No 5 ml q12h Mem oria PENNKINETIC 0-27 l ER 8-10 00:00: Willard MG/5ML LQCR 00 OPTIVAR 2005-05 No 1 gtt each Miguel scott 0.05 % SOLN 0-27 eye bid l 00:00: ZETIA 10 MG 2005-05 No one tab po Memoria TABS 0-27 qhs l 00:00: LUMIGAN 2005-05 No One drop Memori a 0.03 % SOLN 0-27 in each l 00:00: eye q HS ALPHAGAN P 2005- No One drop Mem oria 0.1 % SOLN 0-27 in each l 00:00: eye BID ALTACE 10 2005-0 No one by Memori a MG CAPS 9-29 mouth l 00:00: daily for blood pressure KETEK 400 2005-0 No 2 po daily Me moria MG TABS 6-15 x 5 days l 00:00: GUAIFENESIN 2005-0 No Take one Me moria 1200 MG 6-15 tablet po l TB12 00:00: q 12 hours prn cough/han estion MACROBID 2005-0 No one po bid Mem oria CAP 100MG 6-15 l 00:00: PYRIDIUM 2005-0 No 1 PO TID Memor ia TAB 200MG 6-15 PRN l 00:00: PAINFUL URINATION. PRILOSEC 20 2005-0 Yes one tab po Memoria MG CPDR 6-09 qd for l 00:00: acid reflux CEPHALEXIN 2005-0 No 1 po TID Mem oria MONOHYDRATE 2-24 for l 500 MG TABS 00:00: infection H LOPID 600 2005-0 No 1 po BID Miguel scott MG TABS 2-24 for l 00:00: cholestero l and triglyceri manda PRILOSEC 20 2005-0 No 1 po daily Memoria MG CPDR 2-24 l 00:00: XALATAN 2005-0 No Memoria 0.005 % 2-24 l SOLN 00:00: ELIZABETH-TAB 333 2005-0 No 3 times a M emoria MG TBEC 2-24 day l 00:00: HUMALOG 100 2005-0 No sliding Mem oria U/ML SOLN 2-24 scale l 00:00: ASPIRIN 81 2005-0 Yes one by Memor ia MG TBEC 2-24 mouth l 00:00: daily HUMALOG 100 2005-0 No sliding Mem oria U/ML SOLN 2-24 scale l 00:00: NEURONTIN 2003-0 No 2 or 3 hs Mem oria 100 MG CAP 6-04 l 00:00: Willard 00 LOPID 600 2003-0 No half at Memor ia MG TABS 6-04 morning l 00:00: and half Willard 00 at night PEPCID 10 2003-0 No take at Memor ia MG/ML SOLN 6-04 night prn l 00:00: after Willard 00 meals MACRODANTIN 2003-0 No 1 po TID Me moria 50 MG CAPS 6-04 for l 00:00: urinary Willard 00 infection HUMIBID-DM 2002-0 No 1 po BID Mem oria 30-600 MG 5-29 for l TABSR12 00:00: sinuses Willard 00 and cough LANOXIN 2001-0 No 1 po daily Miguel scott 0.125 MG 9-11 for heart l TAB 00:00: rhythm Tim 00 Vital Signs Vital Name Observation Time Observation Value Comments Source Height 2014-10-17 13:40:41 [facility] Respitory Rate 2014-10-17 13:40:41 [facility] al [place] Weight 2014-10-17 13:40:41 [facility] Tim Temperature Oral (F) 2014-10-17 13:40:41 97.8 F [facility] Heart Rate 2014-10-17 13:40:41 [facility] Systolic (mm Hg) 2014-10-17 13:40:41 Miguel rial Tim Diastolic (mm Hg) 2014-10-17 13:40:41 Mem orial Tim Height 2014-08-07 18:44:27 [facility] Tim Weight 2014-08-07 18:44:27 [facility] Tim Temperature Oral (F) 2014-08-07 18:44:27 96.0 F [facility] Tim Respitory Rate 2014-08-07 18:44:27 Memori al [place] Heart Rate 2014-08-07 18:44:27 [facility] Tim Systolic (mm Hg) 2014-08-07 18:44:27 Miguel rial Tim Diastolic (mm Hg) 2014-08-07 18:44:27 Mem orial Willard Height 2014-06-11 16:46:37 [facility] Tim Weight 2014-06-11 16:46:37 [facility] Temperature Oral (F) 2014-06-11 16:46:37 96.4 F [facility] Tim Respitory Rate 2014-06-11 16:46:37 Memori al [place] Heart Rate 2014-06-11 16:46:37 [facility] Tim Systolic (mm Hg) 2014-06-11 16:46:37 Migeul rial Willard Diastolic (mm Hg) 2014-06-11 16:46:37 Mem orial [place] Height 2014-03-02 16:08:11 [facility] Tim Weight 2014-03-02 16:08:11 [facility] Tim Temperature Oral (F) 2014-03-02 16:08:11 98.0 F [facility] Tim Respitory Rate 2014-03-02 16:08:11 Memori al [place] Heart Rate 2014-03-02 16:08:11 [facility] Tim Systolic (mm Hg) 2014-03-02 16:08:11 Miguel rial Willard Diastolic (mm Hg) 2014-03-02 16:08:11 Mem orial Tim Height 2014-02-20 14:27:44 [facility] [place] Respitory Rate 2014-02-20 14:27:44 [facility] al [place] Weight 2014-02-20 14:27:44 [facility] [place] Temperature Oral (F) 2014-02-20 14:27:44 98.0 F [facility] Tim Heart Rate 2014-02-20 14:27:44 [facility] [place] Systolic (mm Hg) 2014-02-20 14:27:44 Miguel rial Tim Diastolic (mm Hg) 2014-02-20 14:27:44 Mem orial Willard Weight 2013-12-18 15:12:31 [facility] Tim Temperature Oral (F) 2013-12-18 15:12:31 97.5 F [facility] Tim Respitory Rate 2013-12-18 15:12:31 [facility]ori al [place] Heart Rate 2013-12-18 15:12:31 [facility] Tim Systolic (mm Hg) 2013-12-18 15:12:31 Miguel rial Tim Diastolic (mm Hg) 2013-12-18 15:12:31 Mem orial Willard Height 2013-12-18 15:12:31 [facility] Tim Height 2013-11-27 14:19:26 [facility] Tim Weight 2013-11-27 14:19:26 [facility] [place] Temperature Oral (F) 2013-11-27 14:19:26 97.9 F [facility] [place] Respitory Rate 2013-11-27 14:19:26 [facility]ori al [place] Heart Rate 2013-11-27 14:19:26 [facility] [place] Systolic (mm Hg) 2013-11-27 14:19:26 Miguel rial Tim Diastolic (mm Hg) 2013-11-27 14:19:26 Mem orial Tim Height 2013-08-10 18:46:40 [facility] Tim Weight 2013-08-10 18:46:40 [facility] Temperature Oral (F) 2013-08-10 18:46:40 95.5 F [facility] Respitory Rate 2013-08-10 18:46:40 Memori al Tim Systolic (mm Hg) 2013-08-10 18:46:40 Miguel rial Tim Diastolic (mm Hg) 2013-08-10 18:46:40 Mem orial Tim Heart Rate 2013-08-10 18:46:40 [facility] Height 2013-06-21 17:11:10 [facility] Temperature Oral (F) 2013-06-21 17:11:10 97.0 F [facility] [place] Respitory Rate 2013-06-21 17:11:10 Memori al Tim Heart Rate 2013-06-21 17:11:10 [facility] Tim Systolic (mm Hg) 2013-06-21 17:11:10 Miguel rial Willard Diastolic (mm Hg) 2013-06-21 17:11:10 Mem orial Willard Weight 2013-06-21 17:11:10 [facility] Tim Height 2013-06-12 15:25:40 [facility] [place] Weight 2013-06-12 15:25:40 [facility] Tim Temperature Oral (F) 2013-06-12 15:25:40 97.2 F [facility] [place] Respitory Rate 2013-06-12 15:25:40 Memori al Tim Heart Rate 2013-06-12 15:25:40 [facility] Tim Systolic (mm Hg) 2013-06-12 15:25:40 Miguel rial Tim Diastolic (mm Hg) 2013-06-12 15:25:40 Mem orial [place] Height 2012-11-22 20:15:20 [facility] Tim Weight 2012-11-22 20:15:20 [facility] Temperature Oral (F) 2012-11-22 20:15:20 96.7 F [facility] Tim Respitory Rate 2012-11-22 20:15:20 Memori al Tim Systolic (mm Hg) 2012-11-22 20:15:20 Miguel rial Willard Diastolic (mm Hg) 2012-11-22 20:15:20 Mem orial [place] Heart Rate 2012-11-22 20:15:20 [facility] [place] Respitory Rate 2012-11-01 14:22:40 Memori al Tim Temperature Oral (F) 2012-11-01 14:22:40 97.0 F [facility] Tim Height 2012-11-01 14:22:40 [facility] Tim Weight 2012-11-01 14:22:40 [facility] [place] Heart Rate 2012-11-01 14:22:40 [facility] [place] Systolic (mm Hg) 2012-11-01 14:22:40 Miguel rial Willard Diastolic (mm Hg) 2012-11-01 14:22:40 Mem orial [place] Weight 2012-07-05 15:34:25 [facility] [place] Temperature Oral (F) 2012-07-05 15:34:25 96.1 F [facility] Tim Respitory Rate 2012-07-05 15:34:25 Memori al Tim Heart Rate 2012-07-05 15:34:25 [facility] [place] Systolic (mm Hg) 2012-07-05 15:34:25 Miguel rial Tim Diastolic (mm Hg) 2012-07-05 15:34:25 Mem orial Tim Height 2012-05-27 21:14:50 [facility] [place] Weight 2012-05-27 21:14:50 [facility] [place] Temperature Oral (F) 2012-05-27 21:14:50 97.8 F [facility] [place] Respitory Rate 2012-05-27 21:14:50 [facility] al [place] Heart Rate 2012-05-27 21:14:50 [facility] Tim Systolic (mm Hg) 2012-05-27 21:14:50 Miguel rial Tim Diastolic (mm Hg) 2012-05-27 21:14:50 Mem orial [place] Height 2012-01-06 15:23:40 [facility] [place] Weight 2012-01-06 15:23:40 [facility] Tim Temperature Oral (F) 2012-01-06 15:23:40 98.6 F [facility] Tim Respitory Rate 2012-01-06 15:23:40 Memori al Tim Heart Rate 2012-01-06 15:23:40 [facility] Tim Systolic (mm Hg) 2012-01-06 15:23:40 Miguel rial Tim Diastolic (mm Hg) 2012-01-06 15:23:40 Mem orial Tim Height 2011-12-15 19:40:53 [facility] [place] Weight 2011-12-15 19:40:53 [facility] [place] Temperature Oral (F) 2011-12-15 19:40:53 97.5 F [facility] [place] Respitory Rate 2011-12-15 19:40:53 Memori al Tim Heart Rate 2011-12-15 19:40:53 [facility] [place] Systolic (mm Hg) 2011-12-15 19:40:53 Miguel rial Tim Diastolic (mm Hg) 2011-12-15 19:40:53 Mem orial Tim Height 2011-09-11 15:28:30 [facility] [place] Weight 2011-09-11 15:28:30 [facility] Temperature Oral (F) 2011-09-11 15:28:30 96.6 F [facility] Respitory Rate 2011-09-11 15:28:30 [facility] Heart Rate 2011-09-11 15:28:30 [facility] Systolic (mm Hg) 2011-09-11 15:28:30 [facility] Diastolic (mm Hg) 2011-09-11 15:28:30 [facility] Height 2011-08-26 14:15:30 [facility] Weight 2011-08-26 14:15:30 [facility] Temperature Oral (F) 2011-08-26 14:15:30 97.4 F [facility] Respitory Rate 2011-08-26 14:15:30 [facility] Heart Rate 2011-08-26 14:15:30 [facility] Systolic (mm Hg) 2011-08-26 14:15:30 [facility] Diastolic (mm Hg) 2011-08-26 14:15:30 [facility] Height 2011-03-10 14:03:50 [facility] Weight 2011-03-10 14:03:50 [facility] Temperature Oral (F) 2011-03-10 14:03:50 97.5 F [facility] Respitory Rate 2011-03-10 14:03:50 [facility] Heart Rate 2011-03-10 14:03:50 [facility] Systolic (mm Hg) 2011-03-10 14:03:50 [facility] Diastolic (mm Hg) 2011-03-10 14:03:50 [facility] Height 2010-10-28 18:44:31 [facility] Weight 2010-10-28 18:44:31 [facility] Temperature Oral (F) 2010-10-28 18:44:31 96.9 F [facility] Respitory Rate 2010-10-28 18:44:31 [facility] Heart Rate 2010-10-28 18:44:31 [facility] Systolic (mm Hg) 2010-10-28 18:44:31 [facility] Diastolic (mm Hg) 2010-10-28 18:44:31 [facility] Height 2010-08-11 14:12:30 [facility] Weight 2010-08-11 14:12:30 [facility] Temperature Oral (F) 2010-08-11 14:12:30 97.4 F [facility] Respitory Rate 2010-08-11 14:12:30 [facility] Heart Rate 2010-08-11 14:12:30 [facility] Systolic (mm Hg) 2010-08-11 14:12:30 [facility] Diastolic (mm Hg) 2010-08-11 14:12:30 [facility] Height 2010-03-26 18:59:10 [facility] Weight 2010-03-26 18:59:10 [facility] Temperature Oral (F) 2010-03-26 18:59:10 97.9 F [facility] Respitory Rate 2010-03-26 18:59:10 [facility] Heart Rate 2010-03-26 18:59:10 [facility] Systolic (mm Hg) 2010-03-26 18:59:10 [facility] Diastolic (mm Hg) 2010-03-26 18:59:10 [facility] Height 2010-02-12 20:03:30 [facility] Weight 2010-02-12 20:03:30 [facility] Temperature Oral (F) 2010-02-12 20:03:30 98.4 F [facility] Respitory Rate 2010-02-12 20:03:30 [facility] Heart Rate 2010-02-12 20:03:30 [facility] Systolic (mm Hg) 2010-02-12 20:03:30 [facility] Diastolic (mm Hg) 2010-02-12 20:03:30 [facility] Weight 2010-01-28 14:00:00 [facility] Temperature Oral (F) 2010-01-28 14:00:00 97.0 F [facility] Respitory Rate 2010-01-28 14:00:00 [facility] Heart Rate 2010-01-28 14:00:00 [facility] Systolic (mm Hg) 2010-01-28 14:00:00 [facility] Diastolic (mm Hg) 2010-01-28 14:00:00 [facility] Systolic (mm Hg) 2009-09-08 14:58:18 [facility] Diastolic (mm Hg) 2009-09-08 14:58:18 [facility] Weight 2009-09-03 19:47:31 [facility] Temperature Oral (F) 2009-09-03 19:47:31 97.4 F [facility] Respitory Rate 2009-09-03 19:47:31 [facility] Heart Rate 2009-09-03 19:47:31 [facility] Systolic (mm Hg) 2009-09-03 19:47:31 [facility] Diastolic (mm Hg) 2009-09-03 19:47:31 [facility] Systolic (mm Hg) 2009-08-29 19:24:43 [facility] Diastolic (mm Hg) 2009-08-29 19:24:43 [facility] Weight 2009-08-27 19:47:30 [facility] Temperature Oral (F) 2009-08-27 19:47:30 97.7 F [facility] Respitory Rate 2009-08-27 19:47:30 [facility] Heart Rate 2009-08-27 19:47:30 [facility] Systolic (mm Hg) 2009-08-27 19:47:30 [facility] Diastolic (mm Hg) 2009-08-27 19:47:30 [facility] Weight 2009-06-17 15:00:51 [facility] Temperature Oral (F) 2009-06-17 15:00:51 97 F [facility] Respitory Rate 2009-06-17 15:00:51 [facility] Heart Rate 2009-06-17 15:00:51 [facility] Systolic (mm Hg) 2009-06-17 15:00:51 [facility] Diastolic (mm Hg) 2009-06-17 15:00:51 [facility] Weight 2008-10-29 16:40:40 [facility] Systolic (mm Hg) 2008-10-29 16:40:40 [facility] Diastolic (mm Hg) 2008-10-29 16:40:40 [facility] Respitory Rate 2008-10-29 16:40:40 [facility] Heart Rate 2008-10-29 16:40:40 [facility] Temperature Oral (F) 2008-10-29 16:40:40 97.2 F [facility] Weight 2008-07-26 20:15:50 [facility] Temperature Oral (F) 2008-07-26 20:15:50 97.4 F [facility] Respitory Rate 2008-07-26 20:15:50 [facility] Heart Rate 2008-07-26 20:15:50 [facility] Systolic (mm Hg) 2008-07-26 20:15:50 [facility] Diastolic (mm Hg) 2008-07-26 20:15:50 [facility] Weight 2008-07-17 21:55:01 [facility] Temperature Oral (F) 2008-07-17 21:55:01 98.7 F [facility] Heart Rate 2008-07-17 21:55:01 [facility] Respitory Rate 2008-07-17 21:55:01 [facility] Systolic (mm Hg) 2008-07-17 21:55:01 [facility] Diastolic (mm Hg) 2008-07-17 21:55:01 [facility] Weight 2007-11-08 14:27:02 [facility] Temperature Oral (F) 2007-11-08 14:27:02 95.9 F [facility] Respitory Rate 2007-11-08 14:27:02 [facility] Heart Rate 2007-11-08 14:27:02 [facility] Systolic (mm Hg) 2007-11-08 14:27:02 [facility] Diastolic (mm Hg) 2007-11-08 14:27:02 [facility] Weight 2007-08-02 14:59:00 [facility] Temperature Oral (F) 2007-08-02 14:59:00 97.0 F [facility] Heart Rate 2007-08-02 14:59:00 [facility] Respitory Rate 2007-08-02 14:59:00 [facility] Systolic (mm Hg) 2007-08-02 14:59:00 [facility] Diastolic (mm Hg) 2007-08-02 14:59:00 [facility] Weight 2007-02-11 19:55:21 [facility] Temperature Oral (F) 2007-02-11 19:55:21 96.8 F [facility] Respitory Rate 2007-02-11 19:55:21 [facility] Heart Rate 2007-02-11 19:55:21 [facility] Systolic (mm Hg) 2007-02-11 19:55:21 [facility] Diastolic (mm Hg) 2007-02-11 19:55:21 [facility] Weight 2006-12-14 19:34:11 [facility] Temperature Oral (F) 2006-12-14 19:34:11 98.6 F [facility] Respitory Rate 2006-12-14 19:34:11 [facility] Heart Rate 2006-12-14 19:34:11 [facility] Systolic (mm Hg) 2006-12-14 19:34:11 [facility] Diastolic (mm Hg) 2006-12-14 19:34:11 [facility] Weight 2006-11-26 19:01:10 [facility] Respitory Rate 2006-11-26 19:01:10 [facility] Heart Rate 2006-11-26 19:01:10 [facility] Systolic (mm Hg) 2006-11-26 19:01:10 [facility] Diastolic (mm Hg) 2006-11-26 19:01:10 [facility] Temperature Oral (F) 2006-11-26 19:01:10 98.1 F [facility] Weight 2006-10-21 13:15:20 [facility] Temperature Oral (F) 2006-10-21 13:15:20 98 F [facility] Respitory Rate 2006-10-21 13:15:20 [facility] Heart Rate 2006-10-21 13:15:20 [facility] Systolic (mm Hg) 2006-10-21 13:15:20 [facility] Diastolic (mm Hg) 2006-10-21 13:15:20 [facility] Weight 2006-08-10 15:42:51 [facility] Temperature Oral (F) 2006-08-10 15:42:51 96.8 F [facility] Respitory Rate 2006-08-10 15:42:51 [facility] Heart Rate 2006-08-10 15:42:51 [facility] Systolic (mm Hg) 2006-08-10 15:42:51 [facility] Diastolic (mm Hg) 2006-08-10 15:42:51 [facility] Weight 2006-06-09 14:21:50 [facility] Temperature Oral (F) 2006-06-09 14:21:50 96 F [facility] Respitory Rate 2006-06-09 14:21:50 [facility] Heart Rate 2006-06-09 14:21:50 [facility] Systolic (mm Hg) 2006-06-09 14:21:50 [facility] Diastolic (mm Hg) 2006-06-09 14:21:50 [facility] Weight 2006-03-26 19:30:51 [facility] Temperature Oral (F) 2006-03-26 19:30:51 97.8 F [facility] Respitory Rate 2006-03-26 19:30:51 [facility] Systolic (mm Hg) 2006-03-26 19:30:51 [facility] Diastolic (mm Hg) 2006-03-26 19:30:51 [facility] Heart Rate 2006-03-26 19:30:51 [facility] Weight 2005-12-28 15:26:10 [facility] Systolic (mm Hg) 2005-12-28 15:26:10 [facility] Diastolic (mm Hg) 2005-12-28 15:26:10 [facility] Heart Rate 2005-12-28 15:26:10 [facility] Respitory Rate 2005-12-28 15:26:10 [facility] Temperature Oral (F) 2005-12-28 15:26:10 97.8 F [facility] Temperature Oral (F) 2005 13:25:40 96.8 F [facility] Respitory Rate 2005 13:25:40 [facility] Heart Rate 2005 13:25:40 [facility] Systolic (mm Hg) 2005 13:25:40 [facility] Diastolic (mm Hg) 2005 13:25:40 [facility] Weight 2005-11-12 19:24:30 [facility] Temperature Oral (F) 2005-11-12 19:24:30 98.3 F [facility] Respitory Rate 2005-11-12 19:24:30 [facility] Heart Rate 2005-11-12 19:24:30 [facility] Systolic (mm Hg) 2005-11-12 19:24:30 [facility] Diastolic (mm Hg) 2005-11-12 19:24:30 [facility] Weight 2005-11-06 14:04:10 [facility] Temperature Oral (F) 2005-11-06 14:04:10 98.0 F [facility] Heart Rate 2005-11-06 14:04:10 [facility] Respitory Rate 2005-11-06 14:04:10 [facility] Systolic (mm Hg) 2005-11-06 14:04:10 [facility] Diastolic (mm Hg) 2005-11-06 14:04:10 [facility] Weight 2005-08-11 14:41:10 [facility] Temperature Oral (F) 2005-08-11 14:41:10 94.5 F [facility] Respitory Rate 2005-08-11 14:41:10 [facility] Systolic (mm Hg) 2005-08-11 14:41:10 [facility] Diastolic (mm Hg) 2005-08-11 14:41:10 [facility] Heart Rate 2005-08-11 14:41:10 [facility] Temperature Oral (F) 2005-08-04 21:42:41 97.8 F [facility] Respitory Rate 2005-08-04 21:42:41 [facility] Heart Rate 2005-08-04 21:42:41 [facility] Systolic (mm Hg) 2005-08-04 21:42:41 [facility] Diastolic (mm Hg) 2005-08-04 21:42:41 [facility] Temperature Oral (F) 2005-07-24 21:07:30 95.3 F [facility] Heart Rate 2005-07-24 21:07:30 [facility] Respitory Rate 2005-07-24 21:07:30 [facility] Systolic (mm Hg) 2005-07-24 21:07:30 [facility] Diastolic (mm Hg) 2005-07-24 21:07:30 [facility] Weight 2004-03-12 19:12:27 [facility] Temperature Oral (F) 2004-03-12 19:12:27 98 F [facility] Heart Rate 2004-03-12 19:12:27 [facility] Respitory Rate 2004-03-12 19:12:27 [facility] Systolic (mm Hg) 2004-03-12 19:12:27 [facility] Diastolic (mm Hg) 2004-03-12 19:12:27 [facility] Weight 2003-12-05 20:21:14 [facility] Temperature Oral (F) 2003-12-05 20:21:14 98.2 F [facility] Heart Rate 2003-12-05 20:21:14 [facility] Respitory Rate 2003-12-05 20:21:14 [facility] Systolic (mm Hg) 2003-12-05 20:21:14 [facility] Diastolic (mm Hg) 2003-12-05 20:21:14 [facility] Weight 2003-11-02 15:25:05 [facility] Systolic (mm Hg) 2003-11-02 15:25:05 [facility] Diastolic (mm Hg) 2003-11-02 15:25:05 [facility] Heart Rate 2003-11-02 15:25:05 [facility] Respitory Rate 2003-11-02 15:25:05 [facility] Temperature Oral (F) 2003-11-02 15:25:05 97.1 F [facility] Height 2003-04-04 21:21:03 [facility] Temperature Oral (F) 2003-04-04 21:21:03 97.9 F [facility] Heart Rate 2003-04-04 21:21:03 [facility] Weight 2003-04-04 21:21:03 [facility] Respitory Rate 2003-04-04 21:21:03 [facility] Systolic (mm Hg) 2003-04-04 21:21:03 [facility] Diastolic (mm Hg) 2003-04-04 21:21:03 [facility] Weight 2003-03-05 19:54:03 [facility] Temperature Oral (F) 2003-03-05 19:54:03 96.6 F [facility] Heart Rate 2003-03-05 19:54:03 [facility] Respitory Rate 2003-03-05 19:54:03 [facility] Systolic (mm Hg) 2003-03-05 19:54:03 [facility] Diastolic (mm Hg) 2003-03-05 19:54:03 [facility] Heart Rate 2002-10-26 14:01:44 [facility] Respitory Rate 2002-10-26 14:01:44 [facility] Systolic (mm Hg) 2002-10-26 14:01:44 [facility] Diastolic (mm Hg) 2002-10-26 14:01:44 [facility] Temperature Oral (F) 2002-10-26 14:01:44 95.9 F [facility] Weight 2002-10-26 14:01:44 [facility] Weight 2002-06-19 20:26:12 [facility] Temperature Oral (F) 2002-06-19 20:26:12 96.5 F [facility] Heart Rate 2002-06-19 20:26:12 [facility] Respitory Rate 2002-06-19 20:26:12 [facility] Systolic (mm Hg) 2002-06-19 20:26:12 [facility] Diastolic (mm Hg) 2002-06-19 20:26:12 [facility] Systolic (mm Hg) 2002-02-08 18:51:11 [facility] Diastolic (mm Hg) 2002-02-08 18:51:11 [facility] Weight 2002-02-08 18:51:11 [facility] Heart Rate 2002-02-08 18:51:11 [facility] Respitory Rate 2002-02-08 18:51:11 [facility] Temperature Oral (F) 2002-02-08 18:51:11 97.7 F [facility] Procedures Procedure Date / Time Performed Performing Clinician [facility] e bone density 2006-08-10 15:03:21 [facility] colonoscopy 2005-07-01 21:07:30 [facility] Her [facility] diabetic eye exam 2003-11-02 15:25:05 [facility] vaginal Pap smear results 2003-04-04 21:21:03 [facility] foot check 2002-06-19 20:26:12 [facility] mammogram 2001-08-12 06:00:00 [facility] Encounters Start End Encounter Admission Attending Care Care Encounter Source Date/Time Date/Time Type Type Clinicians Facility Department ID 2020-04-04 2020-04-04 Outpatient [facility] [id number] [facility]:00 00:00:00 Katy Sveta higgins [facility] Results Test Description Test Time Test Comments Results Result Sourc e Comments Chemistry 2014-06-12 181 [facility] 19:57:00 Tim Chemistry 2014-06-12 48 [facility] 19:57:00 [facility] Chemistry 2014-06-12 112 MG/DL (CALC) [facility] 19:57:00 Tim Chemistry 2014-06-12 15 [facility] 19:57:00 Tim Chemistry 2014-06-12 1.30 [facility] 19:57:00 [facility] Chemistry 2014-06-12 12 (calc) [facility] 19:57:00 [facility] Chemistry 2014-06-12 141 [facility] 19:57:00 [facility] Chemistry 2014-06-12 4.2 [facility] 19:57:00 Tim Chemistry 2014-06-12 9.9 [facility] 19:57:00 [facility] Chemistry 2014-06-12 8.0 % OF TOTAL [facility] 19:57:00 HGB [facility] Chemistry 2014-06-12 1.59 [facility] 19:57:00 [facility] Hematology 2014-06-12 11.6 [facility] 19:57:00 [facility] Hematology 2014-06-12 35.8 [facility] 19:57:00 [facility] Hematology 2014-06-12 221 THOUSAND/UL [facility] 19:57:00 Tim Chemistry 2014-02-25 17 [facility] 00:31:00 Tim Chemistry 2014-02-25 1.36 [facility] 00:31:00 [facility] Chemistry 2014-02-25 13 (calc) [facility] 00:31:00 Tim Chemistry 2014-02-25 140 [facility] 00:31:00 Tim Chemistry 2014-02-25 5.2 [facility] 00:31:00 Tim Chemistry 2014-02-25 9.9 [facility] 00:31:00 [facility] Chemistry 2014-02-25 8.1 % OF TOTAL [facility] 00:31:00 HGB [facility] Chemistry 2014-02-25 4.69 [facility] 00:31:00 [facility] Chemistry 2013-11-29 167 [facility] 17:52:00 Tim Chemistry 2013-11-29 41 [facility] 17:52:00 Tim Chemistry 2013-11-29 100 MG/DL (CALC) [facility] 17:52:00 Tim Chemistry 2013-11-29 14 [facility] 17:52:00 [facility] Chemistry 2013-11-29 1.20 [facility] 17:52:00 [facility] Chemistry 2013-11-29 12 (calc) [facility] 17:52:00 [facility] Chemistry 2013-11-29 142 [facility] 17:52:00 [facility] Chemistry 2013-11-29 4.6 [facility] 17:52:00 Tim Chemistry 2013-11-29 9.6 [facility] 17:52:00 [facility] Chemistry 2013-11-29 8.6 % OF TOTAL [facility] 17:52:00 HGB Tim Chemistry 2013-11-29 4.23 [facility] 17:52:00 Tim Chemistry 2013-11-29 803 [facility] 17:52:00 Tim Hematology 2013-11-29 11.6 [facility] 17:52:00 [facility] Hematology 2013-11-29 35.5 [facility] 17:52:00 [facility] Hematology 2013-11-29 191 THOUSAND/UL [facility] 17:52:00 [facility] Chemistry 2013-06-14 152 [facility] 00:42:00 Tim Chemistry 2013-06-14 46 [facility] 00:42:00 [facility] Chemistry 2013-06-14 82 MG/DL (CALC) [facility] 00:42:00 [facility] Chemistry 2013-06-14 7.9 % OF TOTAL [facility] 00:42:00 HGB [facility] Chemistry 2012-11-02 153 [facility] 18:20:00 [facility] Chemistry 2012-11-02 46 [facility] 18:20:00 Tim Chemistry 2012-11-02 80 MG/DL (CALC) [facility] 18:20:00 [facility] Chemistry 2012-11-02 7.7 % OF TOTAL [facility] 18:20:00 HGB Tim Chemistry 2012-11-02 647 [facility] 18:20:00 [facility] Chemistry 2012-09-09 3.23 [facility] 10:36:00 [facility] Chemistry 2012-07-06 148 [facility] 19:09:00 Tim Chemistry 2012-07-06 48 [facility] 19:09:00 [facility] Chemistry 2012-07-06 71 MG/DL (CALC) [facility] 19:09:00 Tim Chemistry 2012-07-06 14 [facility] 19:09:00 [facility] Chemistry 2012-07-06 1.23 [facility] 19:09:00 [facility] Chemistry 2012-07-06 11 (calc) [facility] 19:09:00 [facility] Chemistry 2012-07-06 140 [facility] 19:09:00 [facility] Chemistry 2012-07-06 4.4 [facility] 19:09:00 [facility] Chemistry 2012-07-06 9.3 [facility] 19:09:00 [facility] Chemistry 2012-07-06 7.5 % OF TOTAL [facility] 19:09:00 HGB Tim Urinalysis 2012-07-06 117 [facility] 19:09:00 [facility] Chemistry 2012-01-07 16 [facility] 10:48:00 Tim Chemistry 2012-01-07 1.28 [facility] 10:48:00 Tim Chemistry 2012-01-07 13 (calc) [facility] 10:48:00 [facility] Chemistry 2012-01-07 139 [facility] 10:48:00 [facility] Chemistry 2012-01-07 4.2 [facility] 10:48:00 [facility] Chemistry 2012-01-07 8.9 [facility] 10:48:00 [facility] Chemistry 2012-01-07 7.2 % OF TOTAL [facility] 10:48:00 HGB [facility] Chemistry 2011-08-28 130 [facility] 05:32:00 Tim Chemistry 2011-08-28 45 [facility] 05:32:00 [facility] Chemistry 2011-08-28 63 MG/DL (CALC) [facility] 05:32:00 [facility] Chemistry 2011-08-28 7.2 % OF TOTAL [facility] 05:32:00 HGB [facility] Chemistry 2011-08-28 3.69 [facility] 05:32:00 Tim Chemistry 2011-03-11 7.3 % OF TOTAL [facility] 18:43:00 HGB [facility] Chemistry 2010-10-29 7.5 % OF TOTAL [facility] 19:41:00 HGB [facility] Hematology 2010-10-29 11.0 [facility] 19:41:00 [facility] Hematology 2010-10-29 33.0 [facility] 19:41:00 Tim Hematology 2010-10-29 170 THOUSAND/UL [facility] 19:41:00 [facility] Urinalysis 2010-10-29 13 [facility] 19:41:00 [facility] Chemistry 2010-08-21 NOT DETECTED [facility] 03:58:00 [facility] Chemistry 2010-08-12 126 [facility] 22:27:00 [facility] Chemistry 2010-08-12 44 [facility] 22:27:00 Tim Chemistry 2010-08-12 58 MG/DL (CALC) [facility] 22:27:00 Tim Chemistry 2010-08-12 13 [facility] 22:27:00 [facility] Chemistry 2010-08-12 0.98 [facility] 22:27:00 [facility] Chemistry 2010-08-12 NOT APPLICABLE [facility] 22:27:00 (calc) Tim Chemistry 2010-08-12 143 [facility] 22:27:00 Tim Chemistry 2010-08-12 4.3 [facility] 22:27:00 [facility] Chemistry 2010-08-12 9.1 [facility] 22:27:00 [facility] Chemistry 2010-08-12 7.4 % OF TOTAL [facility] 22:27:00 HGB Tim Chemistry 2010-08-12 4.0 [facility] 22:27:00 [facility] Chemistry 2010-08-12 47 [facility] 22:27:00 Tim Chemistry 2010-08-12 11 [facility] 22:27:00 [facility] Chemistry 2010-08-12 7 [facility] 22:27:00 [facility] Chemistry 2010-08-12 2.59 [facility] 22:27:00 [facility] Chemistry 2010-08-12 1.1 [facility] 22:27:00 [facility] Chemistry 2010-08-12 419 [facility] 22:27:00 Tim Hematology 2010-08-12 15.0 [facility] 22:27:00 [facility] Hematology 2010-08-12 46.6 [facility] 22:27:00 [facility] Hematology 2010-08-12 88 THOUSAND/UL [facility] 22:27:00 Tim Chemistry 2010-04-01 40 [facility] 21:49:00 Tim Chemistry 2010-04-01 218 [facility] 21:49:00 [facility] Chemistry 2010-04-01 158 [facility] 21:49:00 [facility] Chemistry 2010-04-01 210 [facility] 21:49:00 [facility] Chemistry 2010-04-01 9.6 [facility] 21:49:00 Tim Hematology 2010-04-01 0.8 [facility] 21:49:00 Itm Toxicology 2010-04-01 0.5 [facility] 21:49:00 [facility] Chemistry 2010-03-27 40 [facility] 20:51:00 Tim Chemistry 2010-03-27 218 [facility] 20:51:00 [facility] Chemistry 2010-03-27 158 [facility] 20:51:00 [facility] Chemistry 2010-03-27 210 [facility] 20:51:00 Tim Chemistry 2010-03-27 9.6 [facility] 20:51:00 [facility] Hematology 2010-03-27 0.8 [facility] 20:51:00 [facility] Toxicology 2010-03-27 0.5 [facility] 20:51:00 Tim Chemistry 2010-02-13 0.8 [facility] 12:52:00 Tim Toxicology 2010-02-13 TNP mcg/L [facility] 12:52:00 Tim Chemistry 2010-01-29 112 [facility] 06:43:00 [facility] Chemistry 2010-01-29 41 [facility] 06:43:00 Tim Chemistry 2010-01-29 45 MG/DL (CALC) [facility] 06:43:00 Tim Chemistry 2010-01-29 14 [facility] 06:43:00 [facility] Chemistry 2010-01-29 1.15 [facility] 06:43:00 Tim Chemistry 2010-01-29 NOT APPLICABLE [facility] 06:43:00 (calc) [facility] Chemistry 2010-01-29 141 [facility] 06:43:00 Tim Chemistry 2010-01-29 4.6 [facility] 06:43:00 Tim Chemistry 2010-01-29 8.9 [facility] 06:43:00 Tim Chemistry 2010-01-29 3.7 [facility] 06:43:00 [facility] Chemistry 2010-01-29 41 [facility] 06:43:00 [facility] Chemistry 2010-01-29 11 [facility] 06:43:00 Tim Chemistry 2010-01-29 6 [facility] 06:43:00 Tim Chemistry 2010-01-29 6.7 % OF TOTAL [facility] 06:43:00 HGB [facility] Chemistry 2010-01-29 5.23 [facility] 06:43:00 [facility] Hematology 2010-01-29 10.4 [facility] 06:43:00 [facility] Hematology 2010-01-29 31.3 [facility] 06:43:00 [facility] Hematology 2010-01-29 133 THOUSAND/UL [facility] 06:43:00 Tim Chemistry 2009-06-18 16 [facility] 13:48:00 Tim Chemistry 2009-06-18 1.16 [facility] 13:48:00 [facility] Chemistry 2009-06-18 NOT APPLICABLE [facility] 13:48:00 (calc) [facility] Chemistry 2009-06-18 141 [facility] 13:48:00 [facility] Chemistry 2009-06-18 4.6 [facility] 13:48:00 [facility] Chemistry 2009-06-18 9.0 [facility] 13:48:00 [facility] Chemistry 2009-06-18 3.7 [facility] 13:48:00 [facility] Chemistry 2009-06-18 45 [facility] 13:48:00 Tim Chemistry 2009-06-18 11 [facility] 13:48:00 [facility] Chemistry 2009-06-18 7 [facility] 13:48:00 Tim Chemistry 2009-06-18 7.4 % OF TOTAL [facility] 13:48:00 HGB Tim Toxicology 2009-06-18 1.0 [facility] 13:48:00 Tim Chemistry 2008-10-30 128 [facility] 19:14:00 Tim Chemistry 2008-10-30 43 [facility] 19:14:00 [facility] Chemistry 2008-10-30 60 MG/DL (CALC) [facility] 19:14:00 Tim Chemistry 2008-10-30 14 [facility] 19:14:00 Tim Chemistry 2008-10-30 1.02 [facility] 19:14:00 Tim Chemistry 2008-10-30 NOT APPLICABLE [facility] 19:14:00 (calc) Tim Chemistry 2008-10-30 141 [facility] 19:14:00 Tim Chemistry 2008-10-30 4.8 [facility] 19:14:00 Tim Chemistry 2008-10-30 9.0 [facility] 19:14:00 [facility] Chemistry 2008-10-30 3.9 [facility] 19:14:00 Tim Chemistry 2008-10-30 57 [facility] 19:14:00 Tim Chemistry 2008-10-30 11 [facility] 19:14:00 [facility] Chemistry 2008-10-30 6 [facility] 19:14:00 Tim Chemistry 2008-10-30 3.44 [facility] 19:14:00 Tim Chemistry 2008-10-30 6.6 % OF TOTAL [facility] 19:14:00 HGB [facility] Urinalysis 2008-10-30 16 [facility] 19:14:00 Tim Chemistry 2007-11-09 160 [facility] 11:02:00 Tim Chemistry 2007-11-09 47 [facility] 11:02:00 Tim Chemistry 2007-11-09 93 MG/DL (CALC) [facility] 11:02:00 Tim Chemistry 2007-11-09 19 [facility] 11:02:00 [facility] Chemistry 2007-11-09 1.14 [facility] 11:02:00 [facility] Chemistry 2007-11-09 NOT APPLICABLE [facility] 11:02:00 (calc) Tim Chemistry 2007-11-09 140 [facility] 11:02:00 [facility] Chemistry 2007-11-09 5.0 [facility] 11:02:00 [facility] Chemistry 2007-11-09 9.8 [facility] 11:02:00 [facility] Chemistry 2007-11-09 94 [facility] 11:02:00 Tim Chemistry 2007-11-09 6.8 % OF TOTAL [facility] 11:02:00 HGB [facility] Chemistry 2007-08-03 145 [facility] 13:54:00 [facility] Chemistry 2007-08-03 46 [facility] 13:54:00 [facility] Chemistry 2007-08-03 79 MG/DL (CALC) [facility] 13:54:00 [facility] Chemistry 2007-08-03 16 [facility] 13:54:00 Tim Chemistry 2007-08-03 0.93 [facility] 13:54:00 [facility] Chemistry 2007-08-03 17 (calc) [facility] 13:54:00 Tim Chemistry 2007-08-03 140 [facility] 13:54:00 Tim Chemistry 2007-08-03 4.5 [facility] 13:54:00 [facility] Chemistry 2007-08-03 9.7 [facility] 13:54:00 Tim Chemistry 2007-08-03 4.5 [facility] 13:54:00 [facility] Chemistry 2007-08-03 81 [facility] 13:54:00 [facility] Chemistry 2007-08-03 17 [facility] 13:54:00 [facility] Chemistry 2007-08-03 11 [facility] 13:54:00 Tmi Chemistry 2007-08-03 102 [facility] 13:54:00 Tim Chemistry 2007-08-03 6.9 % OF TOTAL [facility] 13:54:00 HGB [facility] Hematology 2007-08-03 13.2 [facility] 13:54:00 [facility] Hematology 2007-08-03 39.3 [facility] 13:54:00 Tim Hematology 2007-08-03 155 THOUSAND/UL [facility] 13:54:00 [facility] Chemistry 2007-02-14 6.6 % OF TOTAL [facility] 17:24:00 HGB Tim Urinalysis 2007-02-14 7 [facility] 17:24:00 Tim Urinalysis 2006-11-30 0.98 G/24 H [facility] 20:15:00 Tim Chemistry 2006-11-26 19 [facility] 19:45:00 [facility] Chemistry 2006-11-26 1.1 [facility] 19:45:00 Tim Chemistry 2006-11-26 17 (calc) [facility] 19:45:00 [facility] Chemistry 2006-11-26 139 [facility] 19:45:00 [facility] Chemistry 2006-11-26 4.4 [facility] 19:45:00 Tim Chemistry 2006-11-26 9.6 [facility] 19:45:00 [facility] Chemistry 2006-10-21 144 [facility] 19:35:00 Tim Chemistry 2006-10-21 42 [facility] 19:35:00 [facility] Chemistry 2006-10-21 88 MG/DL (CALC) [facility] 19:35:00 Tim Chemistry 2006-10-21 19 [facility] 19:35:00 Tim Chemistry 2006-10-21 1.1 [facility] 19:35:00 Tim Chemistry 2006-10-21 17 (calc) [facility] 19:35:00 [facility] Chemistry 2006-10-21 140 [facility] 19:35:00 Tim Chemistry 2006-10-21 4.6 [facility] 19:35:00 [facility] Chemistry 2006-10-21 9.9 [facility] 19:35:00 [facility] Chemistry 2006-10-21 4.3 [facility] 19:35:00 Tim Chemistry 2006-10-21 61 [facility] 19:35:00 [facility] Chemistry 2006-10-21 12 [facility] 19:35:00 [facility] Chemistry 2006-10-21 10 [facility] 19:35:00 [facility] Chemistry 2006-10-21 6.6 % OF TOTAL [facility] 19:35:00 HGB Tim Toxicology 2006-10-21 1.7 [facility] 19:35:00 Tim [employer] 2006-10-21 not indicated [facility] 13:15:20 [facility] Chemistry 2006-06-10 159 [facility] 08:26:00 Tim Chemistry 2006-06-10 55 [facility] 08:26:00 Tim Chemistry 2006-06-10 84 MG/DL (CALC) [facility] 08:26:00 Tim Chemistry 2006-06-10 6.7 % OF TOTAL [facility] 08:26:00 HGB Tim Chemistry 2006-03-27 15 [facility] 13:02:00 [facility] Chemistry 2006-03-27 1.0 [facility] 13:02:00 [facility] Chemistry 2006-03-27 15 (calc) [facility] 13:02:00 [facility] Chemistry 2006-03-27 139 [facility] 13:02:00 Tim Chemistry 2006-03-27 3.8 [facility] 13:02:00 Tim Chemistry 2006-03-27 9.6 [facility] 13:02:00 Tim Chemistry 2006-03-27 4.2 [facility] 13:02:00 Tim Chemistry 2006-03-27 66 [facility] 13:02:00 Tim Chemistry 2006-03-27 15 [facility] 13:02:00 Tim Chemistry 2006-03-27 11 [facility] 13:02:00 [facility] Chemistry 2006-03-27 6.7 % OF TOTAL [facility] 13:02:00 HGB Tim Chemistry 2005-11-21 193 [facility] 09:24:00 [facility] Chemistry 2005-11-21 45 [facility] 09:24:00 [facility] Chemistry 2005-11-21 122 MG/DL (CALC) [facility] 09:24:00 [facility] Chemistry 2005-11-21 6.6 % TOTAL HGB [facility] 09:24:00 [facility] Chemistry 2005-08-12 169 [facility] 18:07:00 [facility] Chemistry 2005-08-12 46 [facility] 18:07:00 Tim Chemistry 2005-08-12 103 MG/DL (CALC) [facility] 18:07:00 Tim Chemistry 2005-08-12 1.9 [facility] 18:07:00 [facility] Chemistry 2005-08-12 16 [facility] 18:07:00 [facility] Chemistry 2005-08-12 1.1 [facility] 18:07:00 Tim Chemistry 2005-08-12 15 (CALC) [facility] 18:07:00 Tim Chemistry 2005-08-12 140 [facility] 18:07:00 Tim Chemistry 2005-08-12 4.7 [facility] 18:07:00 Tim Chemistry 2005-08-12 9.3 [facility] 18:07:00 [facility] Chemistry 2005-08-12 3.8 [facility] 18:07:00 [facility] Chemistry 2005-08-12 73 [facility] 18:07:00 Tim Chemistry 2005-08-12 10 [facility] 18:07:00 Tim Chemistry 2005-08-12 4 [facility] 18:07:00 Tim Chemistry 2005-08-12 7.0 % TOTAL HGB [facility] 18:07:00 [facility] Toxicology 2005-08-12 1.6 [facility] 18:07:00 [facility] Urinalysis 2005-08-12 34 [facility] 18:07:00 Tim Chemistry 2004-03-12 190 [facility] 06:40:00 [facility] Chemistry 2004-03-12 57 [facility] 06:40:00 [facility] Chemistry 2004-03-12 113 MG/DL (CALC) [facility] 06:40:00 Tim Chemistry 2004-03-12 4.3 [facility] 06:40:00 [facility] Chemistry 2004-03-12 58 [facility] 06:40:00 Tim Chemistry 2004-03-12 13 [facility] 06:40:00 Tim Chemistry 2004-03-12 8 [facility] 06:40:00 [facility] Chemistry 2004-03-12 128 [facility] 06:40:00 Tim Chemistry 2004-03-12 6.7 % TOTAL HGB [facility] 06:40:00 [facility] Chemistry 2003-11-02 213 [facility] 05:00:00 [facility] Chemistry 2003-11-02 52 [facility] 05:00:00 Tim Chemistry 2003-11-02 139 MG/DL (CALC) [facility] 05:00:00 Tim Chemistry 2003-11-02 14 [facility] 05:00:00 [facility] Chemistry 2003-11-02 1.0 [facility] 05:00:00 Tim Chemistry 2003-11-02 4.3 [facility] 05:00:00 Tim Chemistry 2003-11-02 65 [facility] 05:00:00 Tim Chemistry 2003-11-02 12 [facility] 05:00:00 [facility] Chemistry 2003-11-02 10 [facility] 05:00:00 Tim Chemistry 2003-11-02 141 [facility] 05:00:00 [facility] Chemistry 2003-11-02 4.4 [facility] 05:00:00 Tim Chemistry 2003-11-02 80 [facility] 05:00:00 Tim Mortgage Branch Manager 2003-04-10 SOURCE [facility] 22:10:00 Tim Chemistry 2003-04-04 Negative [facility] 21:21:03 Tim Mortgage Branch Manager 2003-04-04 done today [facility] 21:21:03 Tim Hematology 2003-03-07 12.7 [facility] 10:58:00 [facility] Hematology 2003-03-07 38.1 [facility] 10:58:00 Tim Hematology 2003-03-07 145 X 10-3/UL [facility] 10:58:00 [facility] Chemistry 2003-03-07 6.3 [facility] 08:18:00 Tim Chemistry 2003-03-07 4.0 [facility] 07:02:00 [facility] Chemistry 2003-03-07 74 [facility] 07:02:00 [facility] Chemistry 2003-03-07 17 [facility] 07:02:00 Tim Chemistry 2003-03-07 15 [facility] 07:02:00 Tim Chemistry 2003-03-07 189 [facility] 07:02:00 Tim Chemistry 2003-03-07 47 [facility] 07:02:00 [facility] Chemistry 2003-03-07 570.0 [facility] 07:02:00 [facility] Chemistry 2003-03-07 84 [facility] 07:02:00 [facility] Chemistry 2003-03-07 19 [facility] 07:02:00 Tim Chemistry 2003-03-07 1.1 [facility] 07:02:00 Tim Chemistry 2003-03-07 07:02:00 Test Item Value Reference Range Interpretation Comme nts BUN/CREAT (test code = BUN/CREAT) 17 1 01-24 [facility] DgpveuyNxifimzgk7649-08-77 07:02:41583Rdrfrblh HermannChemistry 2003-03-07 07:02:004.0[facility] QzasacuKoujjwteue4085-10-47 08:44:0013.4[facility] NrvvokpDvhqmfpuje9093-75-09 08:44:0040.0[facility] NhufktnMkngrmkjeh5950-09-05 08:44:44018 X 10-3/ULMemorial IupfkpzMsqsnzunc1196-77-83 08:19:003.200[facility] DrebrxuAhqvnvddbf6305-62-19 08:19:001.1[facility] UrgesipHpimiurbk9595-44-72 07:29:006.8[facility] RmbegavAicwsejhu0674-24-47 06:48:0015[facility] Zkksysaat7938-38-98 06:48:001.0[facility] NokjwhuXdbgrwine0117-03-08 06:48:00 Test Item Value Reference Range Interpretation Comments BUN/CREAT (test code = BUN/CREAT) 15 01-24 [facility] MxbcerlSbtcmwqun2882-03-55 06:48:19567Aduucrlo HermannChemistry 2002-10-27 06:48:004.4[facility] UntliuiQezofqpdt2229-71-93 06:48:009.7[facility] BrvrgxdBtrbosxzg5763-62-34 06:48:004.3[facility] NuhxqefFccaooryx4033-69-63 06:48:0075[facility] NkgktsvHzmgmfgib6797-48-97 06:48:0014[facility] Vrvigigwd9589-68-13 06:48:009[facility] SsjaeieNffhmpoer1447-66-81 11:33:006.9 [facility] YiygklaBazdianiku0393-92-47 11:06:000.5[facility] HermannChemistry 2002-06-20 10:22:45053Orjqpefi YnpdvhqHbzcldjav2542-99-97 10:22:0046[facility] RynyxxgWmisspwds9804-36-38 10:22:31585.0[facility] YwnmzgyVqspglwml4976-71-56 10:22:0097[facility] LedezhpRiqmqzctd1363-45-85 10:22:93864Hpbvagfo [facility] Ipseaqwdh5385-16-16 10:22:004.3[facility] MknwbknUixglkmko4263-47-70 10:22:0019 [facility] VigbfzfAerusrhup5123-36-05 10:22:000.9[facility]ann[facility]istry 2002-06-20 10:22:00 Test Item Value Reference Range Interpretation Comments BUN/CREAT (test code = BUN/CREAT) 21 1 [facility]
--- OUTSIDE RECORDS SUMMARY | 2020-04-16 08:44 | XMS REPORT ---
:1930 Author Organization [facility] Address 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 for urinalysis UTI. Problem Hypotension, I95.9 Active 17301271 unspecified hypotension type Problem Glaucoma H40.9 Active 17423158 Problem Hypertension I10 Active 02070546 Problem Therapeutic Z51.81 Active 309194287 drug monitoring Problem Diabetes type E11.9 Active 788402923 2, controlled Problem Pain in right M79.604 Active 0308462629204543 leg 8 Problem Urinary N39.43 Active 70319974 dribbling Problem Pain of left M79.605 Active 750102626 leg Problem Dizziness R42 Active 302084514 Problem Redness of both H57.89 Active 2537893792445191 Specifically eyes 9 redness of upper/lower bilateral eyelids. Problem History of left Z85.3 Active 527797452 breast cancer Problem Hematuria, R31.9 Active 56666838 unspecified type Problem Skin lesion L98.9 Active 21114093 Located at posterior distal LLE. Problem Hypothyroidism, E03.9 Active 15507541 unspecified type Problem Stress N39.3 Active 92405820 incontinence Problem [facility] Z79.4 Active 370697058 current use of insulin Problem Hyperlipidemia, E78.5 Active 42849673 unspecified hyperlipidemia type Problem Bilateral low M54.5 Active 199049250 back pain without sciatica, unspecified chronicity Problem Lower abdominal R10.30 Active 39530638 pain Problem Diverticulosis K57.90 Active 784512337 Problem Onychomycosis B35.1 Active 080501879 Involvin g toenails. ALLERGIES Allergen (clinical drug Drug/Non Drug Reaction Allergy Type Onset D ate Status ingredient) Allergy documented on EMR sulfamethoxazole / Bactrim([facility] Rash Drug Allergy Act heather trimethoprim Code:[address]-50) propranolol Inderal LA([facility] Unknown Drug Allergy Active Code:[address]-82) ENCOUNTERS from 1930 to 2020-04-05 Encounter Location Date Provider Diagnosis [facility] [address] [facility] Mar, Zoila Calhoun Per [address] [facility] [address] [place] [address] IMMUNIZATIONS Vaccine Route Administration Date Status FLUZONE HIGH DOSE OVER 65 IM Intramuscular Feb 18, 2018 Admin istered SOCIAL HISTORY Tobacco Use: Social History Observation Description Date Details (start date - stop date) Never Smoker Sex Assigned At : Social History Observation Description Sex Assigned At Unknown Alcohol Screen Question Answer Notes Did you have a drink containing alcohol in the past year? Ye s Points 0 Interpretation Negative Tobacco Use/Smoking Question Answer Notes Are you a never smoker REASON FOR REFERRAL No Information VITAL SIGNS No information MEDICATIONS Medication SIG (Take, Route, Start Date End Date Status Frequency, Duration) True Metrix Meter w/Device as directed as directed May, Active pt testing bs tid for 365 days One Touch Verio n/s as directed subcutaneous Mar, 12 Jul, 2 021 Active Test BS three times daily for 90 days Levothyroxine Sodium 50 MCG 1 tablet on an empty Active stomach in the morning Orally Once a day for 90 days Lyrica 50 MG 1 capsule Orally Twice Jul, Activ e daily for peripheral neuropathy for 30 days TobraDex 0.3-0.1 % 1 application to Aug, Activ e upper/lower eyelids of both eyes Ophthalmic Three times a day x7 days for 7 days Pen [place] 32G X 4 MM as directed subcutaneous Oct, Active as directed for use with Lantus Solostar Pen once daily for 90 days Gabapentin 300 MG as directed Orally 1 Ac tive capsule in am and 2 capsules in pm for 30 days One Touch Delica Lancets as directed subcutaneous Mar, Active Lancet Test BS three times daily for 90 days Travoprost Active Amlodipine Besylate 5 MG 1 tablet Orally Once a Active day for 90 days Pen [place] 32G X 5 MM as directed Subcutaneous Jul, Active Use as directed once daily with Lantus Solostar Pen for 90 days Lantus SoloStar 100 UNIT/ML 12 units Subcutaneous Active Once daily for 90 days Losartan Potassium 100 MG 1/2 tablet Orally Once a Active day for 90 days Lovastatin 10 MG 1 tablet in evening Acti ve Orally Once a day for 90 days True Metrix Blood Glucose as directed In Vitro pt May, Active Test - testing bs tid for 90 days PROCEDURES No Information RESULTS No Results REASON FOR VISIT refill MEDICAL (GENERAL) HISTORY Type Description Date Medical History Diabetes type 2, controlled Medical History Hypertension Medical History Glaucoma Medical History Therapeutic drug monitoring Medical History Breast cancer Surgical History Breast Lumpectomy Surgical History Cholecystectomy Surgical History Partial Hysteroctomy Goals Section No Information Health Concerns No Information MEDICAL EQUIPMENT No Information MENTAL STATUS No Information FUNCTIONAL STATUS No Information ASSESSMENTS Encounter Date Diagnosis Notes Mar, Peripheral polyneuropathy (ICD-10 - G62. 9) PLAN OF TREATMENT Medication Medication Name Sig Start Date Stop Date Gabapentin 300 MG as directed Orally 1 capsule in am and 2 capsules in pm for 30 days Losartan Potassium 100 MG 1/2 tablet Orally Once a day for 90 days Next Appt Details Provider Name:Zoila Calhoun, 2020-04-17 02 :40:00 PM, [address] [facility], [address], [place], [address], Insurance Providers Payer Name Payer Address Payer Insured Patient Coverage Cover age End Phone Name Relationship to Start Date Sherman e Insured [employer] [address] [address] [phone] Rita Garcia carlos [employer]IC[place] [address] [phone]
--- NOTE | 2020-04-16 10:24 | RAD REPORT ---
EXAM DESCRIPTION: CT - Pelvis Wo Cont - 04/16/2020 9:50 am CLINICAL HISTORY: TRAUMA, fall, pelvic and hip pain COMPARISON: No comparisons TECHNIQUE: Axial 2 millimeter thick images of the pelvis were obtained with sagittal and coronal ref ormatted images generated and reviewed. The CT scan was performed using dose optimization techniques as appropriate to a performed exam incl uding one or more of the following: Automated exposure control, adjustment of the mA and/or kV accord ing to patient size (this includes techniques or standardized protocols for targeted exams where dose is matched to indication/reason for exam) and use of iterative reconstruction technique. FINDINGS: Advanced degenerative change in the lower lumbar spine without an acute fracture. SI joint degenerative changes are present. There is a nondisplaced fracture at the left ischial tuberosity. Bony pelvis typically fractures in m ore than 1 site ; however, no additional fractures are identifiable. Moderate severity bilateral hip joint degenerative changes are present. Joint space narrowing and mar ginal spurring present. No fracture of either proximal femur identifiable. No pathologic bone process . No periarticular mass or hematoma. No suspicious soft tissue findings along the pelvic portions of the peritoneal and retroperitoneal sp aces. IMPRESSION: Fractures present at the left ischial tuberosity without distraction. No other fracture confirmed. Moderate severity bilateral hip joint degenerative change.
--- NOTE | 2020-04-16 10:49 | EDPHYS ---
Physician Documentation [facility] Name: Heather Garcia Age: 89 yrs Sex: Female : 1930 Arrival Date: 04/16/2020 Time: 08:37 Bed 16 Private MD: ED Physician Tejas Graf HPI: 04/16 09:56 This 89 yrs old Female presents to ER via Wheelchair with complaints of Fall kb Injury. 09:56 Details of fall: The patient fell from an upright position, bending over. Onset: The kb symptoms/episode began/occurred yesterday. Associated injuries: The patient sustained left hip, painful injury. Severity of symptoms: At their worst the symptoms were moderate, in the emergency department the symptoms are unchanged. The patient has not experienced similar symptoms in the past. The patient has not recently seen a physician. Pt reports she fell onto left hip/buttock yesterday. Has been ambulatory since the fall, but with pain. Historical: - Allergies: 09:38 Bactrim; ss 09:38 Inderal; ss - PMHx: 09:38 breast cancer; Diabetes - NIDDM; Hyperlipidemia; Hypertension; neuropathy; ss - PSHx: 09:38 partial hysterectomy; Cholecystectomy; ss - Immunization history: Last tetanus immunization: unknown. - Social history:: Smoking status: Patient denies any tobacco usage or history of. ROS: 09:54 Constitutional: Negative for fever, chills, and weight loss, Cardiovascular: Negative kb for chest pain, palpitations, and edema, Respiratory: Negative for shortness of breath, cough, wheezing, and pleuritic chest pain, Abdomen/GI: Negative for abdominal pain, nausea, vomiting, diarrhea, and constipation, Back: Negative for injury and pain, Skin: Negative for injury, rash, and discoloration, Neuro: Negative for headache, weakness, numbness, tingling, and seizure. 09:54 MS/extremity: Positive for pain, tenderness, of the left hip. Exam: 09:54 Constitutional: This is a well developed, well nourished patient who is awake, alert, kb and in no acute distress. Head/Face: Normocephalic, atraumatic. Chest/axilla: Normal chest wall appearance and motion. Nontender with no deformity. No lesions are appreciated. Cardiovascular: Regular rate and rhythm with a normal S1 and S2. No gallops, murmurs, or rubs. Normal PMI, no JVD. No pulse deficits. Respiratory: Lungs have equal breath sounds bilaterally, clear to auscultation and percussion. No rales, rhonchi or wheezes noted. No increased work of breathing, no retractions or nasal flaring. Abdomen/GI: Soft, non-tender, with normal bowel sounds. No distension or tympany. No guarding or rebound. No evidence of tenderness throughout. Skin: Warm, dry with normal turgor. Normal color with no rashes, no lesions, and no evidence of cellulitis. Neuro: Awake and alert, GCS 15, oriented to person, place, time, and situation. Cranial nerves II-XII grossly intact. Motor strength 5/5 in all extremities. Sensory grossly intact. Cerebellar exam normal. Normal gait. 09:54 Musculoskeletal/extremity: Extremities: grossly normal except: noted in the left hip: pain, tenderness, ROM: limited active range of motion due to pain, in the left hip, Circulation is intact in all extremities. Sensation intact. Weight bearing: can bear weight with assistance only. Vital Signs: 09:34 BP 165 / 73; Pulse 82; Resp 16; Temp 98.0(TE); Pulse Ox 97% on R/A; Weight 52.16 kg; ss Height 5 ft. 6 in. (167.64 cm); Pain 1/10; 10:01 BP 163 / 63; Pulse 70; Resp 17; Pulse Ox 97% on R/A; tw2 10:58 BP 148 / 62; Pulse 68; Resp 17; Pulse Ox 98% on R/A; tw2 09:34 Body Mass Index 18.56 (52.16 kg, 167.64 cm) Chavez Coma Score: 09:34 Eye Response: spontaneous(4). Verbal Response: oriented(5). Motor Response: obeys ss commands(6). Total: 15. 10:01 Eye Response: spontaneous(4). Verbal Response: oriented(5). Motor Response: obeys tw2 commands(6). Total: 15. Trauma Score (Adult): 09:34 Eye Response: spontaneous(1); Verbal Response: oriented(1); Motor Response: obeys ss commands(2); Systolic BP: > 89 mm Hg(4); Respiratory Rate: 10 to 29 per min(4); Chavez Score: 15; Trauma Score: 12 10:01 Eye Response: spontaneous(1); Verbal Response: oriented(1); Motor Response: obeys tw2 commands(2); Systolic BP: > 89 mm Hg(4); Respiratory Rate: 10 to 29 per min(4); [place] Score: 15; Trauma Score: 12 MDM: 09:28 Patient medically screened. kb 09:56 Data reviewed: vital signs, nurses notes. Data interpreted: Pulse oximetry: on room air kb is 97 %. Interpretation: normal. 10:46 Counseling: I had a detailed discussion with the patient and/or guardian regarding: the kb historical points, exam findings, and any diagnostic results supporting the discharge/admit diagnosis, radiology results, the need for outpatient follow up, a family practitioner, to return to the emergency department if symptoms worsen or persist or if there are any questions or concerns that arise at home. 04/16 09:32 Order name: CT Pelvis wo Cont; Complete Time: 10:40 kb Administered Medications: 10:49 Not Given (Physician Discretion): traMADol 25 mg PO once; RASS on ADMIN: Combtv4, Very kb Agttd3, Agttd2, Rstlss1, AlertClm0, Drwsy-1, Lt Sdtn-2, Mod Sdtn-3, Dp Sdtn-4, UnArsble-5 10:53 Drug: traMADol 50 mg Route: PO; tw2 11:10 Follow up: Response: No adverse reaction; Pain is decreased tw2 11:11 Follow up: Response: RASS: Alert and Calm (0) tw2 Disposition: 13:22 Co-signature as Attending Physician, Tejas Graf MD I agree with the assessment and kdr plan of care. Disposition: 04/16/20 10:48 Discharged to Home. Impression: Fall on same level from slipping, tripping and stumbling, Nondisplaced fracture of left ischial tuberosity. - Condition is Stable. - Discharge Instructions: Simple Pelvic Fracture, Adult, Fall Prevention in the Home, Ibeu-zm-Mmjt. - Prescriptions for Tramadol 50 mg Oral Tablet - take 1 tablet by ORAL route every 8 hours as needed; 12 tablet. - Medication Reconciliation Form, Thank You Letter, Antibiotic Education, Prescription Opioid Use form. - Follow up: Emergency Department; When: As needed; Reason: Worsening of condition. Follow up: Private Physician; When: 2 - 3 days; Reason: Recheck today's complaints, Continuance of care, Re-evaluation by your physician. Signatures: Dispatcher [employer] EDYanelis Aleman, WINDOW SHADE CUTTER-C WINDOW SHADE CUTTER-Adrielb Tejas Graf MD MD [facility] Malena Johnson RN RN Sofy Stevens RN RN tw2 Corrections: (The following items were deleted from the chart) 11:11 10:48 04/16/2020 10:48 Discharged to Home. Impression: Fall on same level from tw2 slipping, tripping and stumbling; Nondisplaced fracture of left ischial tuberosity. Condition is Stable. Forms are Medication Reconciliation Form, Thank You Letter, Antibiotic Education, Prescription Opioid Use. Follow up: Emergency Department; When: As needed; Reason: Worsening of condition. Follow up: Private Physician; When: 2 - 3 days; Reason: Recheck today's complaints, Continuance of care, Re-evaluation by your physician. kb
--- NOTE | 2020-04-16 10:49 | ER ---
Nurse's Notes [facility] Name: Heather Garcia Age: 89 yrs Sex: Female : 1930 Arrival Date: 04/16/2020 Time: 08:37 Bed 16 Private MD: Diagnosis: Fall on same level from slipping, tripping and stumbling;Nondisplaced fracture of left ischial tuberosity Presentation: 04/16 09:34 Chief complaint: Patient states: L hip/ buttock pain after falling backwards yesterday ss while squatting to get a khan. Care prior to arrival: None. Mechanism of Injury: Fall squatting position onto buttocks. Trauma event details: Injury occurred in the [facility], Injury occurred: at home. Injury occurred: April 15, 2020. 09:34 Acuity: ADRIENNE 3 ss 09:34 Method Of Arrival: Wheelchair ss 09:34 Coronavirus screen: Client denies travel out of the [place] in the last 14 days. Ebola ss Screen: Patient denies exposure to infectious person. Patient denies travel to an Ebola-affected area in the 21 days before illness onset. Initial Sepsis Screen: Does the patient meet any 2 criteria? No. Patient's initial sepsis screen is negative. Does the patient have a suspected source of infection? No. Patient's initial sepsis screen is negative. Risk Assessment: Do you want to hurt yourself or someone else? Patient reports no desire to harm self or others. Onset of symptoms was April 15, 2020. Trauma Activation: Not Applicable Physician: ED Physician; Name: ; Notified At: ; Arrived At: Physician: General Surgeon; Name: ; Notified At: ; Arrived At: Physician: Radiology; Name: ; Notified At: ; Arrived At: Physician: Respiratory; Name: ; Notified At: ; Arrived At: Physician: Lab; Name: ; Notified At: ; Arrived At: Historical: - Allergies: 09:38 Bactrim; ss 09:38 Inderal; ss - PMHx: :38 breast cancer; Diabetes - NIDDM; Hyperlipidemia; Hypertension; neuropathy; ss - PSHx: 09:38 partial hysterectomy; Cholecystectomy; ss - Immunization history: Last tetanus immunization: unknown. - Social history:: Smoking status: Patient denies any tobacco usage or history of. Screenin:27 Nutritional screening: No deficits noted. Fall Risk Secondary diagnosis (15 points) tw2 impaired mobility. 09:34 Abuse screen: Denies threats or abuse. Denies injuries from another. Tuberculosis ss screening: Never had TB. Primary Survey: : NO uncontrolled hemorrhage observed. A: The patient is alert. Airway: patent, No ss supplemental oxygen in use on arrival. Oral cavity: clear. Breathing/Chest: Respiratory pattern: regular, Respiratory effort: spontaneous, unlabored. Circulation: Pulses: palpable right radial artery, right posterior tibial artery, left radial artery and left posterior tibial artery. Skin color: pink, Skin temperature: warm. Disability Alert. Exposure/Environment: All clothing and personal items were removed. Forensic evidence collection is not deemed to be indicated at this time. Items placed in patient belonging bag. There is no evidence of uncontrolled external bleeding. 10:02 Reassessment Airway Airway Patent Breathing/Chest Respiratory pattern Regular tw2 Respiratory effort Spontaneous Unlabored Breath sounds Clear Chest inspection Symmetrical Circulation Heart tones Present Disability Alert. Secondary Survey: : HEENT: No deficits noted. Gastrointestinal: Abdomen is soft, flat, Bowel sounds present tw2 in all quadrants. : No signs and/or symptoms were reported regarding the genitourinary system. Musculoskeletal: Circulation, motion, and sensation intact. Range of motion: limited in left hip Reports pain in left hip. Assessment: : General: Appears in no apparent distress. slender, well groomed, Behavior is calm, tw2 cooperative, appropriate for age. Pain: Complains of pain in left hip when standing. Neuro: Level of Consciousness is awake, alert, obeys commands, Oriented to person, place, time, situation. EENT: No signs and/or symptoms were reported regarding the EENT system. Cardiovascular: Heart tones S1 S2 Patient's skin is warm and dry. Respiratory: Airway is patent Respiratory effort is even, unlabored, Respiratory pattern is regular, symmetrical, Breath sounds are clear bilaterally. GI: No signs and/or symptoms were reported involving the gastrointestinal system. Abdomen is flat, Bowel sounds present X 4 quads. : No signs and/or symptoms were reported regarding the genitourinary system. Derm: No signs and/or symptoms reported regarding the dermatologic system. Derm: Skin is intact, is fragile, is thin, Skin is dry. Musculoskeletal: Circulation, motion, and sensation intact. Range of motion: limited in left hip. 10:00 Reassessment: Patient appears in no apparent distress at this time. No changes from tw2 previously documented assessment. Patient and/or family updated on plan of care and expected duration. Pain level reassessed. Patient is alert, oriented x 3, equal unlabored respirations, skin warm/dry/pink. pt back from CT at this time, NAD, pillow given for comfort. 10:57 Reassessment: Patient appears in no apparent distress at this time. No changes from tw2 previously documented assessment. Patient and/or family updated on plan of care and expected duration. Pain level reassessed. Patient is alert, oriented x 3, equal unlabored respirations, skin warm/dry/pink. 11:10 Reassessment: Patient appears in no apparent distress at this time. No changes from tw2 previously documented assessment. Patient and/or family updated on plan of care and expected duration. Pain level reassessed. Patient is alert, oriented x 3, equal unlabored respirations, skin warm/dry/pink. Vital Signs: 09:34 BP 165 / 73; Pulse 82; Resp 16; Temp 98.0(TE); Pulse Ox 97% on R/A; Weight 52.16 kg; ss Height 5 ft. 6 in. (167.64 cm); Pain 1/10; 10:01 BP 163 / 63; Pulse 70; Resp 17; Pulse Ox 97% on R/A; tw2 10:58 BP 148 / 62; Pulse 68; Resp 17; Pulse Ox 98% on R/A; tw2 09:34 Body Mass Index 18.56 (52.16 kg, 167.64 cm) Cambridge Coma Score: 09:34 Eye Response: spontaneous(4). Verbal Response: oriented(5). Motor Response: obeys ss commands(6). Total: 15. 10:01 Eye Response: spontaneous(4). Verbal Response: oriented(5). Motor Response: obeys tw2 commands(6). Total: 15. Trauma Score (Adult): 09:34 Eye Response: spontaneous(1); Verbal Response: oriented(1); Motor Response: obeys ss commands(2); Systolic BP: > 89 mm Hg(4); Respiratory Rate: 10 to 29 per min(4); Chavez Score: 15; Trauma Score: 12 10:01 Eye Response: spontaneous(1); Verbal Response: oriented(1); Motor Response: obeys tw2 commands(2); Systolic BP: > 89 mm Hg(4); Respiratory Rate: 10 to 29 per min(4); Cambridge Score: 15; Trauma Score: 12 ED Course: 08:37 Patient arrived in ED. mr 09:27 Thermoregulation: warm blanket given to patient. tw2 09:28 [facility] kb 09:28 Tejas Graf MD is Attending Physician. kb 09:28 Sofy Stevens RN is Primary Nurse. tw2 09:34 Patient has correct armband on for positive identification. Bed in low position. Call ss light in reach. 09:34 Patient maintains SpO2 saturation greater than 95% on room air. ss 09:36 Triage completed. ss 09:38 Arm band placed on right wrist. ss 09:51 CT Pelvis wo Cont In Process Unspecified. EDMS 10:58 No provider procedures requiring assistance completed. Patient did not have IV access tw2 during this emergency room visit. Administered Medications: 10:49 Not Given (Physician Discretion): traMADol 25 mg PO once; RASS on ADMIN: Combtv4, Very kb Agttd3, Agttd2, Rstlss1, AlertClm0, Drwsy-1, Lt Sdtn-2, Mod Sdtn-3, Dp Sdtn-4, UnArsble-5 10:53 Drug: traMADol 50 mg Route: PO; tw2 11:10 Follow up: Response: No adverse reaction; Pain is decreased tw2 11:11 Follow up: Response: RASS: Alert and Calm (0) tw2 Intake: 11:09 PO: 0ml; Total: 0ml. tw2 11:09 pt transported to restroom via w/c for urination at this time, prior to discharge, void tw2 x1 Output: 11:09 Other: 1; Total: 0ml. tw2 11:09 pt transported to restroom via w/c for urination at this time, prior to discharge, void tw2 x1 Outcome: 10:48 Discharge ordered by . kb 10:58 Discharged to home via wheelchair, with family. tw2 10:58 Condition: stable 10:58 Discharge instructions given to patient, family, Instructed on discharge instructions, follow up and referral plans. medication usage, safety practices, Demonstrated understanding of instructions, follow-up care, medications, Prescriptions given X 1. 11:10 Patient's length of stay was not longer than 2 hours. tw2 11:11 Patient left the ED. tw2 Signatures: Dispatcher [employer] EDLA Yanelis Varela, JINA HERRERA-Masood Michelle Gaffney Malena Johnson, RAISA RN Sofy Stevens RN RN tw2
[2020-04-16] MEDS ORDERED: TRAMADOL HCL 50 MG TAB ONE ×2 (11:02→11:04)
[2020-04-16 15:14] VITALS: TEMP 98
[2020-04-16 15:24] VITALS: BP 148/62; O2SAT 98
== END 2020-04-16 11:11 | disposition home or self-care (01) ==
LOC: ER 08:32
DX: S32.602A Unspecified fracture of left ischium, initial encounter for closed fracture (principal); W01.0XXA Fall on same level from slipping, tripping and stumbling without subsequent striking against object, initial encounter; Y93.89 Activity, other specified; Y92.9 Unspecified place or not applicable; I10 Essential (primary) hypertension; Z85.3 Personal history of malignant neoplasm of breast; Z88.1 Allergy status to other antibiotic agents; Z88.8 Allergy status to other drugs, medicaments and biological substances
CPT/HCPCS: 72192; 99284

== ENCOUNTER 2020-09-09 12:49 | Inpatient (IN) | payer OTHER ==
--- OUTSIDE RECORDS SUMMARY | 2020-09-09 12:54 | XMS REPORT | Continuity of Care Document ---
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 and other specified forms of tremor Active 06/11/2014 Condition 5 [facility] Unsteady Condition Active 2014-10-17 M emoria gait -12 09:31:56 l Unsteady 00:00: Hemant n gait 00 Active 06/11/2014 Condition 5 [facility] Body Mass Condition Active 2013-052014-10-17 Memoria Index 0-06 09:31:56 l between Body 00:00: Tim 19-24 Mass Index 00 Adult between 19-24 Adult Active 03/05/2014 Condition 5 [facility] HIP PAIN, Condition Active 2014-10-17 Memoria RIGHT - 09:31:56 l HIP 00:00: Tim PAIN, 00 RIGHT Active 06/21/2013 Condition 5 [facility] MILD Condition Active 2014-10-17 Mem oria 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 09:31:56 l IMPAIRMENT MILD 00:00: Hemant n SO 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 Active 07/05/2012 Condition 5 [facility] DIABETIC Condition Active 2010-052014-10-17 M emoria NEPHROPATH 0-11 09:31:56 l Y (BOTH DIABETIC 00:00: Rose nn CODES NEPHROPATH 00 REQD) Y (BOTH CODES REQD) Active 03/10/2011 Condition 5 [facility] DIABETES, Condition Active 2010-052014-10-17 Memoria TYPE 2, 0- 09:31:56 l UNCONTROLD 00:00: Hemant n , W/RENAL DIABETES, 00 COMP TYPE 2, UNCONTROLD , W/RENAL COMP Active 03/10/2011 Condition 5 [facility] IRRITABLE Condition Active 2010-052014-10-17 Memoria BOWEL 0- 09:31:56 l SYNDROME 00:00: Tim IRRITABLE 00 BOWEL SYNDROME Active 03/10/2011 Condition 5 [facility] VITAMIN Condition Active 2009-052014-10-17 Me moria B12 1- 09:31:56 l DEFICIENCY VITAMIN 00:00: Her dubois B12 00 DEFICIENCY Active 03/31/2010 Condition 5 [facility] HYPOTHYROI Condition Active 2014-10-17 Memoria DISM 02-12 09:31:56 l 00:00: Tim HYPOTHYROI 00 DISM Active 02/12/2010 Condition 5 [facility] ANEMIA, Condition Active 2014-10-17 Me moria NORMOCYTIC 02-12 09:31:56 l ANEMIA, 00:00: Tim NORMOCYTIC 00 Active 02/12/2010 Condition 5 [facility] OSTEOPENIA Condition Active 2014-10-17 Memoria 6 09:31:56 l 00:00: [place] OSTEOPENIA 00 Active 10/31/2008 Condition 5 [facility] NEOPLASM, Condition Active 2007-052014-10-17 Memoria MALIGNANT, 0- 09:31:56 l BREAST, 00:00: [place] LEFT NEOPLASM, 00 MALIGNANT, BREAST, LEFT Active 03/05/2008 Condition 5 [facility] CHRONIC Condition Active 2014-10-17 Me moria KIDNEY DIS 11-19 09:31:56 l STAGE III CHRONIC 00:00: Herm baljeet (MOD)--EGF KIDNEY DIS 00 R 55 STAGE III (MOD)--EGF R 55 Active 11/19/2006 Condition 5 [facility] GLAUCOMA Condition Active 2014-10-17 M emoria NOS 12-28 09:31:56 l GLAUCOMA 00:00: Hemant n NOS 00 Active 12/28/2005 Condition 5 [facility] GERD Condition Active 2014-10-17 Mem oria 6 09:31:56 l GERD 00:00: [place] 00 Active 11/06/2005 Condition 5 [facility] ALLERGIC Condition Active 2014-10-17 M emoria RHINITIS 08-04 09:31:56 l ALLERGIC 00:00: Hemant n RHINITIS 00 Active 08/04/2005 Condition 5 [facility] DIVERTICUL Condition Active 2014-10-17 Memoria OSIS 07-24 09:31:56 l 00:00: [place] DIVERTICUL 00 OSIS Active 07/24/2005 Condition 5 [facility] HYPERTENSI Condition Active 2014-10-17 Memoria ON 07-24 09:31:56 l 00:00: [place] HYPERTENSI 00 ON Active 6 Condition 10/17/2014 [facility] HYPERLIPID Condition Active 2014-10-17 Memoria EMIA, 12-04 09:31:56 l MIXED 00:00: [place] 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, MIXED Active 12/05/2003 Condition 5 [facility] PERIPHERAL Condition Active 2014-10-17 Memoria NEUROPATHY 06-20 09:31:56 l 00:00: [place] PERIPHERAL 00 NEUROPATHY Active 06/20/2002 Condition 5 [facility] IRREGULAR Condition Active 2014-10-17 Memoria HEART RATE 06-19 09:31:56 l 00:00: [place] IRREGULAR 00 HEART RATE Active 06/19/2002 Condition 5 [facility] DIABETES Condition Active 2014-10-17 M emoria MELLITUS, 05-31 09:31:56 l TYPE II, DIABETES 00:00: Herm baljeet CONTROLLED MELLITUS, 00 , W/NEURO TYPE II, COMPS CONTROLLED , W/NEURO COMPS Active 05/31/1988 Condition 5 [facility] Vitamin D Condition Active 2014-10-17 Memoria Deficiency 09:31:56 l Vitamin [place] D Deficiency 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 History of Past Illness Condition Condition Condition Status Onset Resolution Last Treating Co mments Source Name Details Category Date Date Treatment Clinician Date Periodonta Condition Inactiv 2014-10-17 2014-10-17 Memoria l disease e 11-27 09:31:56 09:31:56 l 00:00: Tim Periodonta 00 l disease Inactive 11/27/2013 Condition 5 [facility] Caries, Condition Inactiv 2014-10-17 2014-10-17 Memoria dental e 11-27 09:31:56 09:31:56 l Caries, 00:00: [place] dental 00 Inactive 11/27/2013 Condition 5 [facility] SPRAIN&STR Condition Inactiv 2014-10-17 2014-10-17 Memoria AIN OTHER e 06-21 09:31:56 09:31:56 l SPECIFIED 00:00: [place] SITES SPRAIN&STR 00 KNEE&LEG AIN OTHER SPECIFIED SITES KNEE&LEG Inactive 06/21/2013 Condition 5 [facility] BODY MASS Condition Inactiv 2014-10-17 2014-10-17 Memoria INDEX e - 09:31:56 09:31:56 l BETWEEN BODY 00:00: [place] 19-24 MASS INDEX 00 ADULT BETWEEN 19-24 ADULT Inactive 06/12/2013 Condition 5 [facility] ABDOMINAL Condition Inactiv 2014-10-17 2014-10-17 Memoria PAIN, e 11-22 09:31:56 09:31:56 l GENERALIZE 00:00: Hemant n D ABDOMINAL 00 PAIN, GENERALIZE D Inactive 11/22/2012 Condition 5 [facility] CONSTIPATI Condition Inactiv 2014-10-17 2014-10-17 Memoria ON e 11-22 09:31:56 09:31:56 l 00:00: Tim CONSTIPATI 00 ON Inactive 11/22/2012 Condition 5 [facility] GRIEF Condition Inactiv 2014-10-17 2014-10-17 Memoria REACTION e 2-05 09:31:56 09:31:56 l GRIEF 00:00: Tim REACTION 00 Inactive 07/05/2012 Condition 5 [facility] EYE PAIN Condition Inactiv 2011-052014-10-17 2014-10-17 Memoria e 2- 09:31:56 09:31:56 l EYE PAIN 00:00: Hemant n 00 Inactive 05/16/2012 Condition 5 [facility] HYDRONEPHR Condition Inactiv 2011-052014-10-17 2014-10-17 Memoria OSIS, e 0-25 09:31:56 09:31:56 l BILATERAL 00:00: Tim HYDRONEPHR 00 OSIS, BILATERAL Inactive 03/24/2012 Condition 5 [facility] MICROSCOPI Condition Inactiv 2011-052014-10-17 2014-10-17 Memoria C e 0-25 09:31:56 09:31:56 l HEMATURIA 00:00: Tim MICROSCOPI 00 C HEMATURIA Inactive 03/24/2012 Condition 5 [facility] TENDINITIS Condition Inactiv 2014-10-17 2014-10-17 Memoria , RIGHT e 12-14 09:31:56 09:31:56 l KNEE 00:00: [place] TENDINITIS 00 , RIGHT KNEE Inactive 12/15/2011 Condition 5 [facility] BICEPS Condition Inactiv 2014-10-17 2014-10-17 Memoria TENDINITIS e 4- 09:31:56 09:31:56 l , RIGHT BICEPS 00:00: [place] TENDINITIS 00 , RIGHT Inactive 09/11/2011 Condition 5 [facility] FLU Condition Inactiv 2010-052014-10-17 2014-10-17 Memoria VACCINE e 0-11 09:31:56 09:31:56 l FLU 00:00: [place] VACCINE 00 Inactive 03/10/2011 Condition 5 [facility] OTHER Condition Inactiv 2014-10-17 2014-10-17 Memoria SCREENING e 8- 09:31:56 09:31:56 l MAMMOGRAM OTHER 00:00: Hemant n SCREENING 00 MAMMOGRAM Inactive 12/30/2010 Condition 5 [facility] THROMBOCYT Condition Inactiv 2014-10-17 2014-10-17 Memoria OPENIA e 318 09:31:56 09:31:56 l 00:00: [place] THROMBOCYT 00 OPENIA Inactive 08/15/2010 Condition 5 [facility] URI Condition Inactiv 2014-10-17 2014-10-17 Memoria e 08-27 09:31:56 09:31:56 l URI 00:00: Tim 00 Inactive 08/27/2009 Condition 5 [facility] UTI Condition Inactiv 2014-10-17 2014-10-17 Memoria e 6- 09:31:56 09:31:56 l UTI 00:00: [place] 00 Inactive 10/29/2008 Condition 5 [facility] ABFND, Condition Inactiv 2014-10-17 2014-10-17 Memoria RADIOLOGIC e 2- 09:31:56 09:31:56 l AL, ABFND, 00:00: Tim BREAST, RADIOLOGIC 00 MAMMOGRAM AL, NOS BREAST, MAMMOGRAM NOS Inactive 07/26/2008 Condition 5 [facility] TRIGGER Condition Inactiv 2014-10-17 2014-10-17 Memoria FINGER, e 6- 09:31:56 09:31:56 l RIGHT TRIGGER 00:00: Tim MIDDLE FINGER, 00 RIGHT MIDDLE Inactive 11/08/2007 Condition 5 [facility] INSOMNIA, Condition Inactiv 2014-10-17 2014-10-17 Memoria PERSISTENT e - 09:31:56 09:31:56 l 00:00: Tim INSOMNIA, 00 PERSISTENT Inactive 12/14/2006 Condition 5 [facility] HAY FEVER Condition Inactiv 2014-10-17 2014-10-17 Memoria e 5- 09:31:56 09:31:56 l HAY 00:00: Tim FEVER 00 Inactive 10/21/2006 Condition 5 [facility] VACCINE Condition Inactiv 2014-10-17 2014-10-17 Memoria AGAINST e - 09:31:56 09:31:56 l INFLUENZA VACCINE 00:00: Herm baljeet AGAINST 00 INFLUENZA Inactive 10/21/2006 Condition 5 [facility] WELL WOMAN Condition Inactiv 2014-10-17 2014-10-17 Memoria e 5- 09:31:56 09:31:56 l WELL 00:00: Tim WOMAN 00 Inactive 10/21/2006 Condition 5 [facility] SCIATICA Condition Inactiv 2014-10-17 2014-10-17 Memoria e 3-13 09:31:56 09:31:56 l SCIATICA 00:00: Hemant n 00 Inactive 08/10/2006 Condition 5 [facility] SYMPTOM, Condition Inactiv 2014-10-17 2014-10-17 Memoria COUGH e 7- 09:31:56 09:31:56 l SYMPTOM, 00:00: Hemant n COUGH 00 Inactive 12/28/2005 Condition 5 [facility] U T I Condition Inactiv 2014-10-17 2014-10-17 Memoria e 6-15 09:31:56 09:31:56 l U T I 00:00: Tim 00 Inactive 11/12/2005 Condition 5 [facility] SINUSITIS, Condition Inactiv 2005-2014-10-17 2014-10-17 Memoria ACUTE e 3-14 09:31:56 09:31:56 l 00:00: [place] SINUSITIS, 00 ACUTE Inactive 08/11/2005 Condition 5 [facility] DYSPNEA Condition Inactiv 2014-10-17 2014-10-17 Memoria e 2-24 09:31:56 09:31:56 l DYSPNEA 00:00: Tim 00 Inactive 07/24/2005 Condition 5 [facility] CHEST PAIN Condition Inactiv 2014-10-17 2014-10-17 Memoria e 2-24 09:31:56 09:31:56 l CHEST 00:00: [place] PAIN 00 Inactive 07/24/2005 Condition 5 [facility] FATIGUE Condition Inactiv 2014-10-17 2014-10-17 Memoria e 2- 09:31:56 09:31:56 l FATIGUE 00:00: Tim 00 Inactive 07/24/2005 Condition 5 [facility] ABDOMINAL Condition Inactiv 2014-10-17 2014-10-17 Memoria PAIN, e 2 09:31:56 09:31:56 l EPIGASTRIC 00:00: Hemant n ABDOMINAL 00 PAIN, EPIGASTRIC Inactive 07/24/2005 Condition 5 [facility] HEMATURIA Condition Inactiv 2014-10-17 2014-10-17 Memoria e 2 09:31:56 09:31:56 l 00:00: Tim HEMATURIA 00 Inactive 07/24/2005 Condition 5 [facility] DISEASE, Condition Inactiv 2002-052014-10-17 2014-10-17 Memoria PANCREAS e 2- 09:31:56 09:31:56 l NOS DISEASE, 00:00: Hemant n PANCREAS 00 NOS Inactive 05/02/2003 Condition 5 [facility] ABDOMINAL Condition Inactiv 2002-052014-10-17 2014-10-17 Memoria PAIN e 0-07 09:31:56 09:31:56 l 00:00: Tim ABDOMINAL 00 PAIN Inactive 03/06/2003 Condition 5 [facility] ABDOMEN, Condition Inactiv 2014-10-17 2014-10-17 Memoria ACUTE e 02-10 09:31:56 09:31:56 l ABDOMEN, 00:00: Hemant n ACUTE 00 Inactive 02/10/2002 Condition 5 [facility] Allergies, Adverse Reactions, Alerts Allergy Allergy Status Severity Reaction(s) Onset Inactive Treating Comm ents Source Name Type Date Date Clinician BACTRIM BACTRIM Active Memoria 9-11 l 00:00: Tim 00 INDERAL INDERAL Active Memoria 9-11 l 00:00: [place] 00 TENORMIN TENORMIN Active Memori a 9-11 l 00:00: Tim 00 Medications Ordered Filled Start Stop Current Ordering Indication Dosage Frequency Signature Comments Components Source Medication Medication Date Date Medication? Clinician (SIG) Name Name MELOXICAM Yes Memoria 15 MG TABS 1-12 l 00:00: HANDICAP 2014- Yes place Memoria PLACARD 1-12 placard in [...] l TABS 00:00: needed for pain D3-50 [id number] Yes 1 tab po Me moria UNIT CAPS 7-08 weekly x 8 l 00:00: weeks GABAPENTIN Yes take 2 Memor ia 100 MG CAPS 4-07 caps po l 00:00: twice a day for neuropathy TRAMADOL No 1 tab by Memor ia HCL 50 MG 1-22 mouth l TABS 00:00: every 8 [place] 00 hours as needed for pain TRAMADOL No 1 tab by Memor ia HCL 50 MG 1-22 mouth l TABS 00:00: every 8 00 hours as needed for pain BRIMONIDINE [...] neuropathi c pain FRESHKOTE Yes eye gtts Miguel scott 2.7-2 % 2-05 tid l SOLN [...] a SUSP 3-30 each eye l 00:00: 00 CALCIUM 600 No Memori a MG TABS 6-01 l 00:00: FISH OIL No 1 tab in Memor ia 1000 MG 6-01 the l CAPS 00:00: morning and 1 tab at night CIPRO 250 No Take one Miguel scott MG TABS 6-01 po BID for l 00:00: 3 days. LYRICA 50 No one by Memori a MG CAPS 6-01 mouth l 00:00: three Tim 00 times a day for foot pain, increasing to 2 po TID over the first week FLUOROMETHO No Memori a LONE 0.1 % 6-01 l SUSP 00:00: HUMULIN N No 20 units Miguel scott 100 U/ML 6-01 in morning l SUSPN 00:00: sq, 12 [place] 00 units sq in evening TAMOXIFEN No Take one Miguel scott CITRATE 20 -01 table by l MG TABS 00:00: mouth [place] 00 daily HUMULIN N No 20 units Miguel scott 100 U/ML 6-01 in morning l SUSPN 00:00: sq, 12 [place] 00 units sq in evening PREMARIN No 1 po daily Mem oria 0.625 MG 3-13 l TAB 00:00: ALPHA-LIPOI 2005-05 No takes 1 Mem oria C ACID 50 0-27 tablet at l MG CAPS 00:00: night NASONEX 50 2005-05 No 2 sprays Mem oria MCG/ACT 0-27 each l SUSP 00:00: nostril q day DIMITRI 180 2005-05 No Take one Me moria MG TABS 0-27 tablet po l 00:00: q Daily [place] 00 TUSSIONEX 2005-05 No 5 ml q12h Mem oria PENNKINETIC 0-27 l ER 8-10 00:00: [place] MG/5ML LQCR 00 OPTIVAR 2005-05 No 1 gtt each Miguel scott 0.05 % SOLN 0-27 eye bid l 00:00: ZETIA 10 MG 2005-05 No one tab po Memoria TABS 0-27 qhs l 00:00: LUMIGAN 2005-1 No One drop Memori a 0.03 % SOLN 0-27 in each l 00:00: eye q HS ALPHAGAN P 2005-1 No One drop Mem oria 0.1 % [...] oria 100 MG CAP 6-04 l 00:00: [place] 00 LOPID 600 2003-0 No half at Memor ia MG TABS 6-04 morning l 00:00: and half [place] 00 at night PEPCID 10 2003-0 No take at Memor ia MG/ML SOLN 6-04 night prn l 00:00: after [place] 00 meals MACRODANTIN 2003-0 No 1 po TID Me moria 50 MG CAPS 6-04 for l 00:00: urinary Tim 00 infection HUMIBID-DM 2002-0 No 1 po BID Mem oria 30-600 MG 5-29 for l TABSR12 00:00: sinuses [place] 00 and cough LANOXIN 2001-0 No 1 po daily Miguel scott 0.125 MG 9-11 for heart l TAB 00:00: rhythm Tim 00 Vital Signs Vital Name Observation Time Observation Value Comments Source Height 2014-10-17 13:40:41 [facility] [place] Respitory Rate 2014-10-17 13:40:41 Memori al [place] Weight 2014-10-17 13:40:41 [facility] [place] Temperature Oral (F) 2014-10-17 13:40:41 97.8 F [facility] [place] Heart Rate 2014-10-17 13:40:41 [facility] [place] Systolic (mm Hg) 2014-10-17 13:40:41 Miguel rial Tim Diastolic (mm Hg) 2014-10-17 13:40:41 Mem orial [place] Height 2014-08-07 18:44:27 [facility] [place] Weight 2014-08-07 18:44:27 [facility] Tim Temperature Oral (F) 2014-08-07 18:44:27 96.0 F [facility] Tim Respitory Rate 2014-08-07 18:44:27 Memori al Tim Heart Rate 2014-08-07 18:44:27 [facility] [place] Systolic (mm Hg) 2014-08-07 18:44:27 Miguel rial Tim Diastolic (mm Hg) 2014-08-07 18:44:27 Mem orial [place] Height 2014-06-11 16:46:37 [facility] Tim Weight 2014-06-11 16:46:37 [facility] Tim Temperature Oral (F) 2014-06-11 16:46:37 96.4 F [facility] [place] Respitory Rate 2014-06-11 16:46:37 Memori al [place] Heart Rate 2014-06-11 16:46:37 [facility] [place] Systolic (mm Hg) 2014-06-11 16:46:37 Miguel rial [place] Diastolic (mm Hg) 2014-06-11 16:46:37 Mem orial [place] Height 2014-03-02 16:08:11 [facility] [place] Weight 2014-03-02 16:08:11 [facility] Tim Temperature Oral (F) 2014-03-02 16:08:11 98.0 F [facility] [place] Respitory Rate 2014-03-02 16:08:11 Memori al [place] Heart Rate 2014-03-02 16:08:11 [facility] [place] Systolic (mm Hg) 2014-03-02 16:08:11 Miguel rial [place] Diastolic (mm Hg) 2014-03-02 16:08:11 Mem orial Tim Height 2014-02-20 14:27:44 [facility] [place] Respitory Rate 2014-02-20 14:27:44 Memori al Tim Weight 2014-02-20 14:27:44 [facility] [place] Temperature Oral (F) 2014-02-20 14:27:44 98.0 F [facility] Tim Heart Rate 2014-02-20 14:27:44 [facility] Tim Systolic (mm Hg) 2014-02-20 14:27:44 Miguel rial [place] Diastolic (mm Hg) 2014-02-20 14:27:44 Mem orial Tim Weight 2013-12-18 15:12:31 [facility] [place] Temperature Oral (F) 2013-12-18 15:12:31 97.5 F [facility] [place] Respitory Rate 2013-12-18 15:12:31 Memori al [place] Heart Rate 2013-12-18 15:12:31 [facility] [place] Systolic (mm Hg) 2013-12-18 15:12:31 Miguel rial Tim Diastolic (mm Hg) 2013-12-18 15:12:31 Mem orial [place] Height 2013-12-18 15:12:31 [facility] [place] Height 2013-11-27 14:19:26 [facility] [place] Weight 2013-11-27 14:19:26 [facility] [place] Temperature Oral (F) 2013-11-27 14:19:26 97.9 F [facility] Tim Respitory Rate 2013-11-27 14:19:26 Memori al [place] Heart Rate 2013-11-27 14:19:26 [facility] [place] Systolic (mm Hg) 2013-11-27 14:19:26 Miguel rial [place] Diastolic (mm Hg) 2013-11-27 14:19:26 Mem orial Tim Height 2013-08-10 18:46:40 [facility] Tim Weight 2013-08-10 18:46:40 [facility] [place] Temperature Oral (F) 2013-08-10 18:46:40 95.5 F [facility] Tim Respitory Rate 2013-08-10 18:46:40 Memori al Tim Systolic (mm Hg) 2013-08-10 18:46:40 Miguel rial Tim Diastolic (mm Hg) 2013-08-10 18:46:40 Mem orial [place] Heart Rate 2013-08-10 18:46:40 [facility] Tim Height 2013-06-21 17:11:10 [facility] Tim Temperature Oral (F) 2013-06-21 17:11:10 97.0 F [facility] Tim Respitory Rate 2013-06-21 17:11:10 Memori al [place] Heart Rate 2013-06-21 17:11:10 [facility] [place] Systolic (mm Hg) 2013-06-21 17:11:10 Miguel rial Tim Diastolic (mm Hg) 2013-06-21 17:11:10 Mem orial [place] Weight 2013-06-21 17:11:10 [facility] Tim Height 2013-06-12 15:25:40 [facility] [place] Weight 2013-06-12 15:25:40 [facility] Tim Temperature Oral (F) 2013-06-12 15:25:40 97.2 F [facility] Tim Respitory Rate 2013-06-12 15:25:40 Memori al [place] Heart Rate 2013-06-12 15:25:40 [facility] Tim Systolic (mm Hg) 2013-06-12 15:25:40 Miguel rial Tim Diastolic (mm Hg) 2013-06-12 15:25:40 Mem orial [place] Height 2012-11-22 20:15:20 [facility] [place] Weight 2012-11-22 20:15:20 [facility] Tim Temperature Oral (F) 2012-11-22 20:15:20 96.7 F [facility] Tim Respitory Rate 2012-11-22 20:15:20 Memori al Tim Systolic (mm Hg) 2012-11-22 20:15:20 Miguel rial Tim Diastolic (mm Hg) 2012-11-22 20:15:20 Mem orial [place] Heart Rate 2012-11-22 20:15:20 [facility] [place] Respitory Rate 2012-11-01 14:22:40 Memori al [place] Temperature Oral (F) 2012-11-01 14:22:40 97.0 F [facility] [place] Height 2012-11-01 14:22:40 [facility] Tim Weight 2012-11-01 14:22:40 [facility] Tim Heart Rate 2012-11-01 14:22:40 [facility] [place] Systolic (mm Hg) 2012-11-01 14:22:40 Miguel rial [place] Diastolic (mm Hg) 2012-11-01 14:22:40 Mem orial Tim Weight 2012-07-05 15:34:25 [facility] [place] Temperature Oral (F) 2012-07-05 15:34:25 96.1 F [facility] [place] Respitory Rate 2012-07-05 15:34:25 Memori al [place] Heart Rate 2012-07-05 15:34:25 [facility] Tim Systolic (mm Hg) 2012-07-05 15:34:25 Miguel rial [place] Diastolic (mm Hg) 2012-07-05 15:34:25 Mem orial Tim Height 2012-05-27 21:14:50 [facility] Tim Weight 2012-05-27 21:14:50 [facility] [place] Temperature Oral (F) 2012-05-27 21:14:50 97.8 F [facility] [place] Respitory Rate 2012-05-27 21:14:50 Memori al [place] Heart Rate 2012-05-27 21:14:50 [facility] [place] Systolic (mm Hg) 2012-05-27 21:14:50 Miguel rial [place] Diastolic (mm Hg) 2012-05-27 21:14:50 Mem orial Tim Height 2012-01-06 15:23:40 [facility] [place] Weight 2012-01-06 15:23:40 [facility] [place] Temperature Oral (F) 2012-01-06 15:23:40 98.6 F [facility] Tim Respitory Rate 2012-01-06 15:23:40 Memori al Tim Heart Rate 2012-01-06 15:23:40 [facility] Tim Systolic (mm Hg) 2012-01-06 15:23:40 Miguel rial [place] Diastolic (mm Hg) 2012-01-06 15:23:40 Mem orial Tim Height 2011-12-15 19:40:53 [facility] Tim Weight 2011-12-15 19:40:53 [facility] Tim Temperature Oral (F) 2011-12-15 19:40:53 97.5 F [facility] [place] Respitory Rate 2011-12-15 19:40:53 Memori al [place] Heart Rate 2011-12-15 19:40:53 [facility] Tim Systolic (mm Hg) 2011-12-15 19:40:53 Miguel rial Tim Diastolic (mm Hg) 2011-12-15 19:40:53 Mem orial [place] Height 2011-09-11 15:28:30 [facility] Tim Weight 2011-09-11 15:28:30 [facility] [place] Temperature Oral (F) 2011-09-11 15:28:30 96.6 F [facility] [place] Respitory Rate 2011-09-11 15:28:30 Memori al [place] Heart Rate 2011-09-11 15:28:30 [facility] Tim Systolic (mm Hg) 2011-09-11 15:28:30 Miguel rial [place] Diastolic (mm Hg) 2011-09-11 15:28:30 Mem orial [place] Height 2011-08-26 14:15:30 [facility] [place] Weight 2011-08-26 14:15:30 [facility] Tim Temperature Oral (F) 2011-08-26 14:15:30 97.4 F [facility] Tim Respitory Rate 2011-08-26 14:15:30 Memori al Tim Heart Rate 2011-08-26 14:15:30 [facility] Tim Systolic (mm Hg) 2011-08-26 14:15:30 Miguel rial Tim Diastolic (mm Hg) 2011-08-26 14:15:30 Mem orial Tim Height 2011-03-10 14:03:50 [facility] [place] Weight 2011-03-10 14:03:50 [facility] [place] Temperature Oral (F) 2011-03-10 14:03:50 97.5 F [facility] [place] Respitory Rate 2011-03-10 14:03:50 Memori al Tim Heart Rate 2011-03-10 14:03:50 [facility] [place] Systolic (mm Hg) 2011-03-10 14:03:50 Miguel rial Tim Diastolic (mm Hg) 2011-03-10 14:03:50 Mem orial Tim Height 2010-10-28 18:44:31 [facility] Tim Weight 2010-10-28 18:44:31 [facility] Tim Temperature Oral (F) 2010-10-28 18:44:31 96.9 F [facility] Tim Respitory Rate 2010-10-28 18:44:31 [facility] al [place] Heart Rate 2010-10-28 18:44:31 [facility] Tim Systolic (mm Hg) 2010-10-28 18:44:31 Miguel rial Tim Diastolic (mm Hg) 2010-10-28 18:44:31 Mem orial Tim Height 2010-08-11 14:12:30 [facility] [place] Weight 2010-08-11 14:12:30 [facility] Tim Temperature Oral (F) 2010-08-11 14:12:30 97.4 F [facility] Tim Respitory Rate 2010-08-11 14:12:30 Memori al Tim Heart Rate 2010-08-11 14:12:30 [facility] Tim Systolic (mm Hg) 2010-08-11 14:12:30 Miguel rial Tim Diastolic (mm Hg) 2010-08-11 14:12:30 Mem orial Tim Height 2010-03-26 18:59:10 [facility] [place] Weight 2010-03-26 18:59:10 [facility] Tim Temperature Oral (F) 2010-03-26 18:59:10 97.9 F [facility] Respitory Rate 2010-03-26 18:59:10 Memori al Tim Heart Rate 2010-03-26 18:59:10 [facility] [place] Systolic (mm Hg) 2010-03-26 18:59:10 Miguel rial Tim Diastolic (mm Hg) 2010-03-26 18:59:10 Mem o[facility] [place] Height 2010-02-12 20:03:30 [facility] Tim Weight 2010-02-12 20:03:30 [facility] Tim Temperature Oral (F) 2010-02-12 20:03:30 98.4 F [facility] [place] Respitory Rate 2010-02-12 20:03:30 [facility] al [place] Heart Rate 2010-02-12 20:03:30 [facility] Tim Systolic (mm Hg) 2010-02-12 20:03:30 Miguel rial Tim Diastolic (mm Hg) 2010-02-12 20:03:30 [facility] o[facility] [place] Weight 2010-01-28 14:00:00 [facility] [place] Temperature Oral (F) 2010-01-28 14:00:00 97.0 F [facility] Tim Respitory Rate 2010-01-28 14:00:00 Mem[facility] al [place] Heart Rate 2010-01-28 14:00:00 [facility] Tim Systolic (mm Hg) 2010-01-28 14:00:00 Miguel rial Tim Diastolic (mm Hg) 2010-01-28 14:00:00 Mem o[facility] [place] Systolic (mm Hg) 2009-09-08 14:58:18 Miguel rial Tim Diastolic (mm Hg) 2009-09-08 14:58:18 [facility] Weight 2009-09-03 19:47:31 [facility] [place] Temperature Oral (F) 2009-09-03 19:47:31 97.4 F [facility] [place] Respitory Rate 2009-09-03 19:47:31 [facility] [place] Heart Rate 2009-09-03 19:47:31 [facility] Systolic (mm Hg) 2009-09-03 19:47:31 [facility] [place] Diastolic (mm Hg) 2009-09-03 19:47:31 [facility] [place] Systolic (mm Hg) 2009-08-29 19:24:43 [facility] [place] Diastolic (mm Hg) 2009-08-29 19:24:43 [facility] [place] Weight 2009-08-27 19:47:30 [facility] Temperature Oral (F) 2009-08-27 19:47:30 97.7 F [facility] [place] Respitory Rate 2009-08-27 19:47:30 [facility] [place] Heart Rate 2009-08-27 19:47:30 [facility] Systolic (mm Hg) 2009-08-27 19:47:30 [facility] [place] Diastolic (mm Hg) 2009-08-27 19:47:30 [facility] Weight 2009-06-17 15:00:51 [facility] [place] Temperature Oral (F) 2009-06-17 15:00:51 97 F [facility] Respitory Rate 2009-06-17 15:00:51 [facility] Heart Rate 2009-06-17 15:00:51 [facility] Systolic (mm Hg) 2009-06-17 15:00:51 [facility] [place] Diastolic (mm Hg) 2009-06-17 15:00:51 [facility] Weight 2008-10-29 16:40:40 [facility] [place] Systolic (mm Hg) 2008-10-29 16:40:40 [facility] [place] Diastolic (mm Hg) 2008-10-29 16:40:40 [facility] [place] Respitory Rate 2008-10-29 16:40:40 [facility] Heart Rate 2008-10-29 16:40:40 [facility] Temperature Oral (F) 2008-10-29 16:40:40 97.2 F [facility] Weight 2008-07-26 20:15:50 [facility] Temperature Oral (F) 2008-07-26 20:15:50 97.4 F [facility] [place] Respitory Rate 2008-07-26 20:15:50 [facility] Heart Rate 2008-07-26 20:15:50 [facility] Systolic (mm Hg) 2008-07-26 20:15:50 [facility] [place] Diastolic (mm Hg) 2008-07-26 20:15:50 [facility] [place] Weight 2008-07-17 21:55:01 [facility] Temperature Oral (F) 2008-07-17 21:55:01 98.7 F [facility] Heart Rate 2008-07-17 21:55:01 [facility] [place] Respitory Rate 2008-07-17 21:55:01 [facility] [place] Systolic (mm Hg) 2008-07-17 21:55:01 [facility] [place] Diastolic (mm Hg) 2008-07-17 21:55:01 [facility] Weight 2007-11-08 14:27:02 [facility] [place] Temperature Oral (F) 2007-11-08 14:27:02 95.9 F [facility] Respitory Rate 2007-11-08 14:27:02 [facility] [place] Heart Rate 2007-11-08 14:27:02 [facility] Systolic (mm Hg) 2007-11-08 14:27:02 [facility] Diastolic (mm Hg) 2007-11-08 14:27:02 [facility] [place] Weight 2007-08-02 14:59:00 [facility] [place] Temperature Oral (F) 2007-08-02 14:59:00 97.0 F [facility] Heart Rate 2007-08-02 14:59:00 [facility] [place] Respitory Rate 2007-08-02 14:59:00 [facility] Systolic (mm Hg) 2007-08-02 14:59:00 [facility] [place] Diastolic (mm Hg) 2007-08-02 14:59:00 [facility] Weight 2007-02-11 19:55:21 [facility] Temperature Oral (F) 2007-02-11 19:55:21 96.8 F [facility] Respitory Rate 2007-02-11 19:55:21 [facility] [place] Heart Rate 2007-02-11 19:55:21 [facility] [place] Systolic (mm Hg) 2007-02-11 19:55:21 [facility] [place] Diastolic (mm Hg) 2007-02-11 19:55:21 [facility] [place] Weight 2006-12-14 19:34:11 [facility] [place] Temperature Oral (F) 2006-12-14 19:34:11 98.6 F [facility] Respitory Rate 2006-12-14 19:34:11 [facility] [place] Heart Rate 2006-12-14 19:34:11 [facility] Systolic (mm Hg) 2006-12-14 19:34:11 [facility] [place] Diastolic (mm Hg) 2006-12-14 19:34:11 [facility] [place] Weight 2006-11-26 19:01:10 [facility] Respitory Rate 2006-11-26 19:01:10 [facility] Heart Rate 2006-11-26 19:01:10 [facility] Systolic (mm Hg) 2006-11-26 19:01:10 [facility] Diastolic (mm Hg) 2006-11-26 19:01:10 [facility] Temperature Oral (F) 2006-11-26 19:01:10 98.1 F [facility] [place] Weight 2006-10-21 13:15:20 [facility] Temperature Oral (F) 2006-10-21 13:15:20 98 F [facility] Respitory Rate 2006-10-21 13:15:20 [facility] [place] Heart Rate 2006-10-21 13:15:20 [facility] [place] Systolic (mm Hg) 2006-10-21 13:15:20 [facility] Diastolic (mm Hg) 2006-10-21 13:15:20 [facility] [place] Weight 2006-08-10 15:42:51 [facility] Temperature Oral (F) 2006-08-10 15:42:51 96.8 F [facility] Respitory Rate 2006-08-10 15:42:51 [facility] [place] Heart Rate 2006-08-10 15:42:51 [facility] [place] Systolic (mm Hg) 2006-08-10 15:42:51 [facility] Diastolic (mm Hg) 2006-08-10 15:42:51 [facility] [place] Weight 2006-06-09 14:21:50 [facility] [place] Temperature Oral (F) 2006-06-09 14:21:50 96 F [facility] Respitory Rate 2006-06-09 14:21:50 [facility] [place] Heart Rate 2006-06-09 14:21:50 [facility] [place] Systolic (mm Hg) 2006-06-09 14:21:50 [facility] [place] Diastolic (mm Hg) 2006-06-09 14:21:50 [facility] [place] Weight 2006-03-26 19:30:51 [facility] Temperature Oral (F) 2006-03-26 19:30:51 97.8 F [facility] Respitory Rate 2006-03-26 19:30:51 [facility] Systolic (mm Hg) 2006-03-26 19:30:51 [facility] [place] Diastolic (mm Hg) 2006-03-26 19:30:51 [facility] [place] Heart Rate 2006-03-26 19:30:51 [facility] Weight 2005-12-28 15:26:10 [facility] [place] Systolic (mm Hg) 2005-12-28 15:26:10 [facility] [place] Diastolic (mm Hg) 2005-12-28 15:26:10 [facility] Heart Rate 2005-12-28 15:26:10 [facility] [place] Respitory Rate 2005-12-28 15:26:10 [facility] [place] Temperature Oral (F) 2005-12-28 15:26:10 97.8 F [facility] [place] Temperature Oral (F) 2005 13:25:40 96.8 F [facility] [place] Respitory Rate 2005 13:25:40 [facility] [place] Heart Rate 2005 13:25:40 [facility] Systolic (mm Hg) 2005 13:25:40 [facility] [place] Diastolic (mm Hg) 2005 13:25:40 [facility] Weight 2005-11-12 19:24:30 [facility] Temperature Oral (F) 2005-11-12 19:24:30 98.3 F [facility] [place] Respitory Rate 2005-11-12 19:24:30 [facility] [place] Heart Rate 2005-11-12 19:24:30 [facility] Systolic (mm Hg) 2005-11-12 19:24:30 [facility] Diastolic (mm Hg) 2005-11-12 19:24:30 [facility] [place] Weight 2005-11-06 14:04:10 [facility] [place] Temperature Oral (F) 2005-11-06 14:04:10 98.0 F [facility] Heart Rate 2005-11-06 14:04:10 [facility] Respitory Rate 2005-11-06 14:04:10 [facility] Systolic (mm Hg) 2005-11-06 14:04:10 [facility] Diastolic (mm Hg) 2005-11-06 14:04:10 [facility] [place] Weight 2005-08-11 14:41:10 [facility] [place] Temperature Oral (F) 2005-08-11 14:41:10 94.5 F [facility] [place] Respitory Rate 2005-08-11 14:41:10 [facility] [place] Systolic (mm Hg) 2005-08-11 14:41:10 [facility] [place] Diastolic (mm Hg) 2005-08-11 14:41:10 [facility] [place] Heart Rate 2005-08-11 14:41:10 [facility] Temperature Oral (F) 2005-08-04 21:42:41 97.8 F [facility] Respitory Rate 2005-08-04 21:42:41 [facility] Heart Rate 2005-08-04 21:42:41 [facility] [place] Systolic (mm Hg) 2005-08-04 21:42:41 [facility] Diastolic (mm Hg) 2005-08-04 21:42:41 [facility] Temperature Oral (F) 2005-07-24 21:07:30 95.3 F [facility] [place] Heart Rate 2005-07-24 21:07:30 [facility] Respitory Rate 2005-07-24 21:07:30 [facility] Systolic (mm Hg) 2005-07-24 21:07:30 [facility] Diastolic (mm Hg) 2005-07-24 21:07:30 [facility] Weight 2004-03-12 19:12:27 [facility] [place] Temperature Oral (F) 2004-03-12 19:12:27 98 F [facility] [place] Heart Rate 2004-03-12 19:12:27 [facility] Respitory Rate 2004-03-12 19:12:27 [facility] [place] Systolic (mm Hg) 2004-03-12 19:12:27 [facility] [place] Diastolic (mm Hg) 2004-03-12 19:12:27 [facility] Weight 2003-12-05 20:21:14 [facility] [place] Temperature Oral (F) 2003-12-05 20:21:14 98.2 F [facility] Heart Rate 2003-12-05 20:21:14 [facility] Respitory Rate 2003-12-05 20:21:14 [facility] Systolic (mm Hg) 2003-12-05 20:21:14 [facility] [place] Diastolic (mm Hg) 2003-12-05 20:21:14 [facility] Weight 2003-11-02 15:25:05 [facility] Systolic (mm Hg) 2003-11-02 15:25:05 [facility] Diastolic (mm Hg) 2003-11-02 15:25:05 [facility] Heart Rate 2003-11-02 15:25:05 [facility] Respitory Rate 2003-11-02 15:25:05 [facility] [place] Temperature Oral (F) 2003-11-02 15:25:05 97.1 F [facility] [place] Height 2003-04-04 21:21:03 [facility] [place] Temperature Oral (F) 2003-04-04 21:21:03 97.9 F [facility] [place] Heart Rate 2003-04-04 21:21:03 [facility] [place] Weight 2003-04-04 21:21:03 [facility] Respitory Rate 2003-04-04 21:21:03 [facility] Systolic (mm Hg) 2003-04-04 21:21:03 [facility] [place] Diastolic (mm Hg) 2003-04-04 21:21:03 [facility] [place] Weight 2003-03-05 19:54:03 [facility] [place] Temperature Oral (F) 2003-03-05 19:54:03 96.6 F [facility] Heart Rate 2003-03-05 19:54:03 [facility] Respitory Rate 2003-03-05 19:54:03 [facility] [place] Systolic (mm Hg) 2003-03-05 19:54:03 [facility] [place] Diastolic (mm Hg) 2003-03-05 19:54:03 [facility] [place] Heart Rate 2002-10-26 14:01:44 [facility] Respitory Rate 2002-10-26 14:01:44 [facility] Systolic (mm Hg) 2002-10-26 14:01:44 [facility] Diastolic (mm Hg) 2002-10-26 14:01:44 [facility] Temperature Oral (F) 2002-10-26 14:01:44 95.9 F [facility] [place] Weight 2002-10-26 14:01:44 [facility] [place] Weight 2002-06-19 20:26:12 [facility] Temperature Oral (F) 2002-06-19 20:26:12 96.5 F [facility] Heart Rate 2002-06-19 20:26:12 [facility] Respitory Rate 2002-06-19 20:26:12 [facility] [place] Systolic (mm Hg) 2002-06-19 20:26:12 [facility] [place] Diastolic (mm Hg) 2002-06-19 20:26:12 [facility] Systolic (mm Hg) 2002-02-08 18:51:11 [facility] Diastolic (mm Hg) 2002-02-08 18:51:11 [facility] Weight 2002-02-08 18:51:11 [facility] [place] Heart Rate 2002-02-08 18:51:11 [facility] [place] Respitory Rate 2002-02-08 18:51:11 [facility] Temperature Oral (F) 2002-02-08 18:51:11 97.7 F [facility] [place] Procedures Procedure Date / Time Performed Performing Clinician Drew e bone density 2006-08-10 15:03:21 Matt dubois colonoscopy 2005-07-01 21:07:30 Matt sherly diabetic eye exam 2003-11-02 15:25:05 Matt hill vaginal Pap smear results 2003-04-04 21:21:03 [facility] foot check 2002-06-19 20:26:12 Matt Dumont mammogram 2001-08-12 06:00:00 Matt Her dubois Encounters Start End Encounter Admission Attending Care Care Encounter Source Date/Time Date/Time Type Type Clinicians Facility Department ID 2020-09-03 2020-09-03 [facility] [id number] 2020-07-29 2020-07-29 [facility] [id number] [facility] 2020-06-12 2020-06-12 [facility] [id number] [facility] 2020-05-13 2020-05-13 [facility] [id number] [facility] 2020-04-23 2020-04-23 [facility] [id number] [facility] 2020-04-19 2020-04-19 [facility] [id number] [facility] 2020-04-17 2020-04-17 [facility] [id number] [facility] 2020-04-04 2020-04-04 [facility] [id number] [facility] Results Test Description Test Time Test Comments Results Result [facility] samantha Comments Chemistry 2014-06-12 181 [facility] 19:57:00 [place] Chemistry 2014-06-12 48 [facility] 19:57:00 [place] Chemistry 2014-06-12 112 MG/DL (CALC) [facility] 19:57:00 [facility] Chemistry 2014-06-12 15 [facility] 19:57:00 [facility] Chemistry 2014-06-12 1.30 [facility] 19:57:00 [facility] Chemistry 2014-06-12 12 (calc) [facility] 19:57:00 [facility] Chemistry 2014-06-12 141 [facility] 19:57:00 [place] Chemistry 2014-06-12 4.2 [facility] 19:57:00 [place] Chemistry 2014-06-12 9.9 [facility] 19:57:00 [facility] Chemistry 2014-06-12 8.0 % OF TOTAL [facility] 19:57:00 [facility] [place] Chemistry 2014-06-12 1.59 [facility] 19:57:00 [facility] Hematology 2014-06-12 11.6 [facility] 19:57:00 [place] Hematology 2014-06-12 35.8 [facility] 19:57:00 [place] Hematology 2014-06-12 221 THOUSAND/UL [facility] 19:57:00 [place] Chemistry 2014-02-25 17 [facility] 00:31:00 [place] Chemistry 2014-02-25 1.36 [facility] 00:31:00 [place] Chemistry 2014-02-25 13 (calc) [facility] 00:31:00 [place] Chemistry 2014-02-25 140 [facility] 00:31:00 [place] Chemistry 2014-02-25 5.2 [facility] 00:31:00 [place] Chemistry 2014-02-25 9.9 [facility] 00:31:00 [place] Chemistry 2014-02-25 8.1 % OF TOTAL [facility] 00:31:00 [facility] Chemistry 2014-02-25 4.69 [facility] 00:31:00 [facility] Chemistry 2013-11-29 167 [facility] 17:52:00 [facility] Chemistry 2013-11-29 41 [facility] 17:52:00 [place] Chemistry 2013-11-29 100 MG/DL (CALC) [facility] 17:52:00 [facility] Chemistry 2013-11-29 14 [facility] 17:52:00 [place] Chemistry 2013-11-29 1.20 [facility] 17:52:00 [place] Chemistry 2013-11-29 12 (calc) [facility] 17:52:00 [facility] Chemistry 2013-11-29 142 [facility] 17:52:00 [facility] Chemistry 2013-11-29 4.6 [facility] 17:52:00 [facility] Chemistry 2013-11-29 9.6 [facility] 17:52:00 [facility] Chemistry 2013-11-29 8.6 % OF TOTAL [facility] 17:52:00 [facility] Chemistry 2013-11-29 4.23 [facility] 17:52:00 [facility] Chemistry 2013-11-29 803 [facility] 17:52:00 [place] Hematology 2013-11-29 11.6 [facility] 17:52:00 [place] Hematology 2013-11-29 35.5 [facility] 17:52:00 [facility] Hematology 2013-11-29 191 THOUSAND/UL [facility] 17:52:00 [place] Chemistry 2013-06-14 152 [facility] 00:42:00 [place] Chemistry 2013-06-14 46 [facility] 00:42:00 [place] Chemistry 2013-06-14 82 MG/DL (CALC) [facility] 00:42:00 [place] Chemistry 2013-06-14 7.9 % OF TOTAL [facility] 00:42:00 [facility] Chemistry 2012-11-02 153 [facility] 18:20:00 [place] Chemistry 2012-11-02 46 [facility] 18:20:00 [facility] Chemistry 2012-11-02 80 MG/DL (CALC) [facility] 18:20:00 [place] Chemistry 2012-11-02 7.7 % OF TOTAL [facility] 18:20:00 [facility] Chemistry 2012-11-02 647 [facility] 18:20:00 [place] Chemistry 2012-09-09 3.23 [facility] 10:36:00 [facility] Chemistry 2012-07-06 148 [facility] 19:09:00 [place] Chemistry 2012-07-06 48 [facility] 19:09:00 [facility] Chemistry 2012-07-06 71 MG/DL (CALC) [facility] 19:09:00 [place] Chemistry 2012-07-06 14 [facility] 19:09:00 [facility] Chemistry 2012-07-06 1.23 [facility] 19:09:00 [facility] Chemistry 2012-07-06 11 (calc) [facility] 19:09:00 [facility] Chemistry 2012-07-06 140 [facility] 19:09:00 [place] Chemistry 2012-07-06 4.4 [facility] 19:09:00 [facility] Chemistry 2012-07-06 9.3 [facility] 19:09:00 [place] Chemistry 2012-07-06 7.5 % OF TOTAL [facility] 19:09:00 [facility] [place] Urinalysis 2012-07-06 117 [facility] 19:09:00 [facility] Chemistry 2012-01-07 16 [facility] 10:48:00 [facility] Chemistry 2012-01-07 1.28 [facility] 10:48:00 [place] Chemistry 2012-01-07 13 (calc) [facility] 10:48:00 [place] Chemistry 2012-01-07 139 [facility] 10:48:00 [place] Chemistry 2012-01-07 4.2 [facility] 10:48:00 [facility] Chemistry 2012-01-07 8.9 [facility] 10:48:00 [facility] Chemistry 2012-01-07 7.2 % OF TOTAL [facility] 10:48:00 [facility] Chemistry 2011-08-28 130 [facility] 05:32:00 [facility] Chemistry 2011-08-28 45 [facility] 05:32:00 [place] Chemistry 2011-08-28 63 MG/DL (CALC) [facility] 05:32:00 [place] Chemistry 2011-08-28 7.2 % OF TOTAL [facility] 05:32:00 [facility] [place] Chemistry 2011-08-28 3.69 [facility] 05:32:00 [place] Chemistry 2011-03-11 7.3 % OF TOTAL [facility] 18:43:00 [facility] [place] Hematology 2010-10-29 33.0 [facility] 19:41:00 [place] Hematology 2010-10-29 170 THOUSAND/UL [facility] 19:41:00 [facility] Urinalysis 2010-10-29 13 [facility] 19:41:00 [facility] Chemistry 2010-10-29 7.5 % OF TOTAL [facility] 19:41:00 [facility] [place] Hematology 2010-10-29 11.0 [facility] 19:41:00 [facility] Chemistry 2010-08-21 NOT DETECTED [facility] 03:58:00 [place] Chemistry 2010-08-12 126 [facility] 22:27:00 [facility] Chemistry 2010-08-12 44 [facility] 22:27:00 [facility] Chemistry 2010-08-12 58 MG/DL (CALC) [facility] 22:27:00 [place] Chemistry 2010-08-12 13 [facility] 22:27:00 [place] Chemistry 2010-08-12 0.98 [facility] 22:27:00 [facility] Chemistry 2010-08-12 NOT APPLICABLE [facility] 22:27:00 (calc) [facility] Chemistry 2010-08-12 143 [facility] 22:27:00 [place] Chemistry 2010-08-12 4.3 [facility] 22:27:00 [place] Chemistry 2010-08-12 9.1 [facility] 22:27:00 [place] Chemistry 2010-08-12 7.4 % OF TOTAL [facility] 22:27:00 [facility] Chemistry 2010-08-12 4.0 [facility] 22:27:00 [facility] Chemistry 2010-08-12 47 [facility] 22:27:00 [place] Chemistry 2010-08-12 11 [facility] 22:27:00 [place] Chemistry 2010-08-12 7 [facility] 22:27:00 [place] Chemistry 2010-08-12 2.59 [facility] 22:27:00 [place] Chemistry 2010-08-12 1.1 [facility] 22:27:00 [facility] Chemistry 2010-08-12 419 [facility] 22:27:00 [place] Hematology 2010-08-12 15.0 [facility] 22:27:00 [facility] Hematology 2010-08-12 46.6 [facility] 22:27:00 [place] Hematology 2010-08-12 88 THOUSAND/UL [facility] 22:27:00 [facility] Chemistry 2010-04-01 40 [facility] 21:49:00 [facility] Chemistry 2010-04-01 218 [facility] 21:49:00 [place] Chemistry 2010-04-01 158 [facility] 21:49:00 [place] Chemistry 2010-04-01 210 [facility] 21:49:00 [place] Chemistry 2010-04-01 9.6 [facility] 21:49:00 [facility] Hematology 2010-04-01 0.8 [facility] 21:49:00 [place] Toxicology 2010-04-01 0.5 [facility] 21:49:00 [place] Chemistry 2010-03-27 40 [facility] 20:51:00 [facility] Chemistry 2010-03-27 218 [facility] 20:51:00 [facility] Chemistry 2010-03-27 158 [facility] 20:51:00 [place] Chemistry 2010-03-27 210 [facility] 20:51:00 [place] Chemistry 2010-03-27 9.6 [facility] 20:51:00 [place] Hematology 2010-03-27 0.8 [facility] 20:51:00 [place] Toxicology 2010-03-27 0.5 [facility] 20:51:00 [facility] Chemistry 2010-02-13 0.8 [facility] 12:52:00 [place] Toxicology 2010-02-13 TNP mcg/L [facility] 12:52:00 [facility] Chemistry 2010-01-29 112 [facility] 06:43:00 [facility] Chemistry 2010-01-29 41 [facility] 06:43:00 [facility] Chemistry 2010-01-29 45 MG/DL (CALC) [facility] 06:43:00 [facility] Chemistry 2010-01-29 14 [facility] 06:43:00 [facility] Chemistry 2010-01-29 1.15 [facility] 06:43:00 [place] Chemistry 2010-01-29 NOT APPLICABLE [facility] 06:43:00 (calc) [facility] Chemistry 2010-01-29 141 [facility] 06:43:00 [facility] Chemistry 2010-01-29 4.6 [facility] 06:43:00 [place] Chemistry 2010-01-29 8.9 [facility] 06:43:00 [place] Chemistry 2010-01-29 3.7 [facility] 06:43:00 [place] Chemistry 2010-01-29 41 [facility] 06:43:00 [place] Chemistry 2010-01-29 11 [facility] 06:43:00 [facility] Chemistry 2010-01-29 6 [facility] 06:43:00 [facility] Chemistry 2010-01-29 6.7 % OF TOTAL [facility] 06:43:00 [facility] Chemistry 2010-01-29 5.23 [facility] 06:43:00 [facility] Hematology 2010-01-29 10.4 [facility] 06:43:00 [place] Hematology 2010-01-29 31.3 [facility] 06:43:00 [place] Hematology 2010-01-29 133 THOUSAND/UL [facility] 06:43:00 [facility] Chemistry 2009-06-18 16 [facility] 13:48:00 [facility] Chemistry 2009-06-18 1.16 [facility] 13:48:00 [place] Chemistry 2009-06-18 NOT APPLICABLE [facility] 13:48:00 (calc) [place] Chemistry 2009-06-18 141 [facility] 13:48:00 [facility] Chemistry 2009-06-18 4.6 [facility] 13:48:00 [facility] Chemistry 2009-06-18 9.0 [facility] 13:48:00 [place] Chemistry 2009-06-18 3.7 [facility] 13:48:00 [facility] Chemistry 2009-06-18 45 [facility] 13:48:00 [facility] Chemistry 2009-06-18 11 [facility] 13:48:00 [place] Chemistry 2009-06-18 7 [facility] 13:48:00 [place] Chemistry 2009-06-18 7.4 % OF TOTAL [facility] 13:48:00 [facility] Toxicology 2009-06-18 1.0 [facility] 13:48:00 [facility] Chemistry 2008-10-30 128 [facility] 19:14:00 [facility] Chemistry 2008-10-30 43 [facility] 19:14:00 [place] Chemistry 2008-10-30 60 MG/DL (CALC) [facility] 19:14:00 [facility] Chemistry 2008-10-30 14 [facility] 19:14:00 [place] Chemistry 2008-10-30 1.02 [facility] 19:14:00 [place] Chemistry 2008-10-30 NOT APPLICABLE [facility] 19:14:00 (calc) [place] Chemistry 2008-10-30 141 [facility] 19:14:00 [place] Chemistry 2008-10-30 4.8 [facility] 19:14:00 [facility] Chemistry 2008-10-30 9.0 [facility] 19:14:00 [facility] Chemistry 2008-10-30 3.9 [facility] 19:14:00 [facility] Chemistry 2008-10-30 57 [facility] 19:14:00 [facility] Chemistry 2008-10-30 11 [facility] 19:14:00 [facility] Chemistry 2008-10-30 6 [facility] 19:14:00 [facility] Chemistry 2008-10-30 3.44 [facility] 19:14:00 [place] Chemistry 2008-10-30 6.6 % OF TOTAL [facility] 19:14:00 [facility] [place] Urinalysis 2008-10-30 16 [facility] 19:14:00 [facility] Chemistry 2007-11-09 160 [facility] 11:02:00 [place] Chemistry 2007-11-09 47 [facility] 11:02:00 [facility] Chemistry 2007-11-09 93 MG/DL (CALC) [facility] 11:02:00 [place] Chemistry 2007-11-09 19 [facility] 11:02:00 [place] Chemistry 2007-11-09 1.14 [facility] 11:02:00 [place] Chemistry 2007-11-09 NOT APPLICABLE [facility] 11:02:00 (calc) [place] Chemistry 2007-11-09 140 [facility] 11:02:00 [place] Chemistry 2007-11-09 5.0 [facility] 11:02:00 [facility] Chemistry 2007-11-09 9.8 [facility] 11:02:00 [facility] Chemistry 2007-11-09 94 [facility] 11:02:00 [facility] Chemistry 2007-11-09 6.8 % OF TOTAL [facility] 11:02:00 [facility] [place] Chemistry 2007-08-03 145 [facility] 13:54:00 [facility] Chemistry 2007-08-03 46 [facility] 13:54:00 [place] Chemistry 2007-08-03 79 MG/DL (CALC) [facility] 13:54:00 [place] Chemistry 2007-08-03 16 [facility] 13:54:00 [place] Chemistry 2007-08-03 0.93 [facility] 13:54:00 [place] Chemistry 2007-08-03 17 (calc) [facility] 13:54:00 [place] Chemistry 2007-08-03 140 [facility] 13:54:00 [place] Chemistry 2007-08-03 4.5 [facility] 13:54:00 [place] Chemistry 2007-08-03 9.7 [facility] 13:54:00 [facility] Chemistry 2007-08-03 4.5 [facility] 13:54:00 [place] Chemistry 2007-08-03 81 [facility] 13:54:00 [facility] Chemistry 2007-08-03 17 [facility] 13:54:00 [place] Chemistry 2007-08-03 11 [facility] 13:54:00 [facility] Chemistry 2007-08-03 102 [facility] 13:54:00 [facility] Chemistry 2007-08-03 6.9 % OF TOTAL [facility] 13:54:00 [facility]GB [facility] Hematology 2007-08-03 13.2 [facility] 13:54:00 [place] Hematology 2007-08-03 39.3 [facility] 13:54:00 [facility] Hematology 2007-08-03 155 THOUSAND/UL [facility] 13:54:00 [place] Chemistry 2007-02-14 6.6 % OF TOTAL [facility] 17:24:00 [facility] Urinalysis 2007-02-14 7 [facility] 17:24:00 [facility] Urinalysis 2006-11-30 0.98 G/24 H [facility] 20:15:00 [place] Chemistry 2006-11-26 19 [facility] 19:45:00 [facility] Chemistry 2006-11-26 1.1 [facility] 19:45:00 [facility] Chemistry 2006-11-26 17 (calc) [facility] 19:45:00 [place] Chemistry 2006-11-26 139 [facility] 19:45:00 [facility] Chemistry 2006-11-26 4.4 [facility] 19:45:00 [place] Chemistry 2006-11-26 9.6 [facility] 19:45:00 [facility] Chemistry 2006-10-21 144 [facility] 19:35:00 [place] Chemistry 2006-10-21 42 [facility] 19:35:00 [place] Chemistry 2006-10-21 88 MG/DL (CALC) [facility] 19:35:00 [place] Chemistry 2006-10-21 19 [facility] 19:35:00 [place] Chemistry 2006-10-21 1.1 [facility] 19:35:00 [place] Chemistry 2006-10-21 17 (calc) [facility] 19:35:00 [place] Chemistry 2006-10-21 140 [facility] 19:35:00 [place] Chemistry 2006-10-21 4.6 [facility] 19:35:00 [facility] Chemistry 2006-10-21 9.9 [facility] 19:35:00 [facility] Chemistry 2006-10-21 4.3 [facility] 19:35:00 [place] Chemistry 2006-10-21 61 [facility] 19:35:00 Tim Chemistry 2006-10-21 12 [facility] 19:35:00 [place] Chemistry 2006-10-21 10 [facility] 19:35:00 [place] Chemistry 2006-10-21 6.6 % OF TOTAL [facility] 19:35:00 [facility] [place] Toxicology 2006-10-21 1.7 [facility] 19:35:00 [place] [employer] 2006-10-21 not indicated [facility] 13:15:20 [facility] Chemistry 2006-06-10 159 [facility] 08:26:00 [facility] Chemistry 2006-06-10 55 [facility] 08:26:00 [facility] Chemistry 2006-06-10 84 MG/DL (CALC) [facility] 08:26:00 [facility] Chemistry 2006-06-10 6.7 % OF TOTAL [facility] 08:26:00 [facility] Chemistry 2006-03-27 15 [facility] 13:02:00 [place] Chemistry 2006-03-27 1.0 [facility] 13:02:00 [place] Chemistry 2006-03-27 15 (calc) [facility] 13:02:00 [place] Chemistry 2006-03-27 139 [facility] 13:02:00 [facility] Chemistry 2006-03-27 3.8 [facility] 13:02:00 [facility] Chemistry 2006-03-27 9.6 [facility] 13:02:00 [facility] Chemistry 2006-03-27 4.2 [facility] 13:02:00 [place] Chemistry 2006-03-27 66 [facility] 13:02:00 [place] Chemistry 2006-03-27 15 [facility] 13:02:00 Tim Chemistry 2006-03-27 11 [facility] 13:02:00 [facility] Chemistry 2006-03-27 6.7 % OF TOTAL [facility] 13:02:00 HGB Tim Chemistry 2005-11-21 193 [facility] 09:24:00 [facility] Chemistry 2005-11-21 45 [facility] 09:24:00 [facility] Chemistry 2005-11-21 122 MG/DL (CALC) [facility] 09:24:00 Tim Chemistry 2005-11-21 6.6 % TOTAL HGB [facility] 09:24:00 [place] Chemistry 2005-08-12 169 [facility] 18:07:00 Tim Chemistry 2005-08-12 46 [facility] 18:07:00 Tim Chemistry 2005-08-12 103 MG/DL (CALC) [facility] 18:07:00 [place] Chemistry 2005-08-12 1.9 [facility] 18:07:00 [place] Chemistry 2005-08-12 16 [facility] 18:07:00 Tim Chemistry 2005-08-12 1.1 [facility] 18:07:00 Tim Chemistry 2005-08-12 15 (CALC) [facility] 18:07:00 [facility] Chemistry 2005-08-12 140 [facility] 18:07:00 [facility] Chemistry 2005-08-12 4.7 [facility] 18:07:00 Tim Chemistry 2005-08-12 9.3 [facility] 18:07:00 [place] Chemistry 2005-08-12 3.8 [facility] 18:07:00 [place] Chemistry 2005-08-12 73 [facility] 18:07:00 Tim Chemistry 2005-08-12 10 [facility] 18:07:00 [facility] Chemistry 2005-08-12 4 [facility] 18:07:00 [facility] Chemistry 2005-08-12 7.0 % TOTAL HGB [facility] 18:07:00 [place] Toxicology 2005-08-12 1.6 [facility] 18:07:00 [place] Urinalysis 2005-08-12 34 [facility] 18:07:00 [place] Chemistry 2004-03-12 190 [facility] 06:40:00 [facility] Chemistry 2004-03-12 57 [facility] 06:40:00 [facility] Chemistry 2004-03-12 113 MG/DL (CALC) [facility] 06:40:00 [facility] Chemistry 2004-03-12 4.3 [facility] 06:40:00 Tim Chemistry 2004-03-12 58 [facility] 06:40:00 [facility] Chemistry 2004-03-12 13 [facility] 06:40:00 [place] Chemistry 2004-03-12 8 [facility] 06:40:00 [place] Chemistry 2004-03-12 128 [facility] 06:40:00 [facility] Chemistry 2004-03-12 6.7 % TOTAL HGB [facility] 06:40:00 [place] Chemistry 2003-11-02 213 [facility] 05:00:00 Tim Chemistry 2003-11-02 52 [facility] 05:00:00 [place] Chemistry 2003-11-02 139 MG/DL (CALC) [facility] 05:00:00 [facility] Chemistry 2003-11-02 14 [facility] 05:00:00 [facility] Chemistry 2003-11-02 1.0 [facility] 05:00:00 [place] Chemistry 2003-11-02 4.3 [facility] 05:00:00 Tim Chemistry 2003-11-02 65 [facility] 05:00:00 [facility] Chemistry 2003-11-02 12 [facility] 05:00:00 [place] Chemistry 2003-11-02 10 [facility] 05:00:00 [place] Chemistry 2003-11-02 141 [facility] 05:00:00 [facility] Chemistry 2003-11-02 4.4 [facility] 05:00:00 [facility] Chemistry 2003-11-02 80 [facility] 05:00:00 [facility] [employer] Teacher 2003-04-10 SOURCE [facility] 22:10:00 [place] Chemistry 2003-04-04 Negative [facility] 21:21:03 [facility] [employer] Teacher 2003-04-04 done today [facility] 21:21:03 [facility] Hematology 2003-03-07 12.7 [facility] 10:58:00 [place] Hematology 2003-03-07 38.1 [facility] 10:58:00 [place] Hematology 2003-03-07 145 X 10-3/UL [facility] 10:58:00 [facility] Chemistry 2003-03-07 6.3 [facility] 08:18:00 [facility] Chemistry 2003-03-07 4.0 [facility] 07:02:00 [place] Chemistry 2003-03-07 74 [facility] 07:02:00 [facility] Chemistry 2003-03-07 17 [facility] 07:02:00 Tim Chemistry 2003-03-07 15 [facility] 07:02:00 [facility] Chemistry 2003-03-07 189 [facility] 07:02:00 Tim Chemistry 2003-03-07 47 [facility] 07:02:00 [place] Chemistry 2003-03-07 570.0 [facility] 07:02:00 Tim Chemistry 2003-03-07 84 [facility] 07:02:00 [facility] Chemistry 2003-03-07 19 [facility] 07:02:00 [facility] Chemistry 2003-03-07 1.1 [facility] 07:02:00 [facility] Chemistry 2003-03-07 07:02:00 Test Item Value Reference Range Interpretation Comme nts BUN/CREAT (test code = BUN/CREAT) 17 1 8-27 [facility] FugicxvWnvagndqo0107-27-39 07:02:53896Rfkfsjgi HermannChemistry 2003-03-07 07:02:004.0[facility] BqoobclUteojomyqn3030-62-30 08:44:0013.4[facility] WrpbbsvCscbbrlygf3214-82-80 08:44:0040.0[facility] BpjpgcmHwhsfpqsgp0043-12-38 08:44:08120 X 10-3/ULMemorial DihthhjMzlvcaeeg9643-85-91 08:19:003.200[facility] YaiosdyFasckwpcek6688-69-55 08:19:001.1[facility] HidklvxGpdygjotl9290-06-41 07:29:006.8[facility] DdxktfrGvwyqwrxu1006-38-98 06:48:0015[facility] Tim Eausvswmq5396-28-64 06:48:001.0[facility] NjvjfrnJivimfnup7667-38-19 06:48:00 Test Item Value Reference Range Interpretation Comments BUN/CREAT (test code = BUN/CREAT) 15 1 8- [facility] SvavdidTmcicwpos1252-14-22 06:48:94521Ceanqhjm HermannChemistry 2002-10-27 06:48:004.4[facility] XbonlnsQjajjfwlr6062-91-70 06:48:009.7[facility] WoqvgeaBskwgekll9983-38-11 06:48:004.3[facility] FdcoiltSlhlfjlrd7583-62-59 06:48:0075[facility] LqxnditXygegjvhg1196-20-90 06:48:0014[facility] Tim Hloyuuesa8795-43-40 06:48:009[facility] WepgjdtIyunrdjov3521-24-71 11:33:006.9 [facility] KiqbuosCrvhhfpsgf6189-64-27 11:06:000.5[facility] HermannChemistry 2002-06-20 10:22:13409Fzvqjfeh BitpimmWqhphhvue4123-55-27 10:22:0046[facility] FnbtqvwFnuqxbicf7813-26-96 10:22:18751.0[facility] NrwfwyeQkdnrknte1340-49-55 10:22:0097[facility] TaaroesWdxelalhk2473-62-50 10:22:65013Djmvnyeg Tim Yqfbttull5662-98-38 10:22:004.3[facility] XsylzgvOjodadsld5358-40-24 10:22:0019 [facility] BzeitpkFwwlmcpac0468-16-22 10:22:000.9[facility] HermannChemistry 2002-06-20 10:22:00 Test Item Value Reference Range Interpretation Comments BUN/CREAT (test code = BUN/CREAT) 21 1 [facility]
[2020-09-09] MEDS ORDERED: MORPHINE 2 MG/ML SYR ONE ×2 (14:33→15:25)
[2020-09-09] MEDS ORDERED: ONDANSETRON 4 MG/2 ML VIAL ONE (14:33)
--- NOTE | 2020-09-09 15:01 | RAD REPORT ---
EXAM DESCRIPTION: RAD - Pelvis - 09/09/2020 2:47 pm CLINICAL HISTORY: fall, pelvic and leg pain COMPARISON: Pelvis Wo Cont dated 04/16/2020 TECHNIQUE: AP imaging of the pelvis was obtained. FINDINGS: Prominent degenerative change present L3-S1. This is only partially imaged. No gross evide nce for a L4 or L5 compression fracture. Sacral ala appears intact. Moderate SI joint degenerative ch anges are present. No acute fracture of the bony pelvis seen. There is remodeling of the left inferior pubic ramus and l eft ischium from fracture seen March 2020. Moderate bilateral hip joint degenerative change present. Proximal left femur is intact. Right femur intertrochanteric fracture is present. No distraction or angulation from normal anatomic position. Arterial tree calcifications are present. IMPRESSION: Right femur intertrochanteric fracture. No distraction or angulation. Old left ischium and inferior pubic ramus fracture on the left.
--- NOTE | 2020-09-09 15:04 | RAD REPORT ---
EXAM DESCRIPTION: RAD - Femur Right - 09/09/2020 2:46 pm CLINICAL HISTORY: fall COMPARISON: No comparisons FINDINGS: Multiple AP and cross-table lateral views of the right femur were obtained. Intertrochante ayse fracture is present extending into the proximal shaft of the femur. No significant distraction or angulation deformity seen. No pathologic component seen. Moderate severity hip joint degenerative ch jean. No femoral head AVN suspected. Knee joint degenerative changes are present. Medial compartment narrowing is present with degenerati ve meniscal calcifications. No air or foreign body in the soft tissues. Patient has dense arterial tree calcifications. IMPRESSION: Right femur intertrochanteric fracture extending into the proximal shaft. No significant distraction or angulation deformity. Hip joint and knee joint degenerative change. Femoral head AVN is not suspected.
[2020-09-09] MEDS ORDERED: D5 0.9 NS 1,000 ML IV ONE (15:25)
[2020-09-09 15:28] LABS: Absolute Lymphocytes (CBC) 1.7 K/uL (0.7-4.9); Basophils % 0.4 % (0-1.3); Hematocrit 33.7 % (36.0-45.0); Lymphocytes % 16.8 % (15.3-44.8); RBC Red Blood Cell Count 3.64 M/uL (3.86-4.86)
--- NOTE | 2020-09-09 15:31 | ER ---
Nurse's Notes [facility] Name: Heather Garcia Age: 89 yrs Sex: Female : 1930 Arrival Date: 09/09/2020 Time: 13:09 Bed 19 Private MD: Diagnosis: Intertrochanteric fracture of femur Presentation: 09/09 13:10 Chief complaint: EMS states: "pt with a mechanical fall today with walker slipping and jd3 falling and hitting right knee and upper leg. 20 G IV started in the left AC and 50 mcg of Fentanyl given.". Coronavirus screen: At this time, the client does not indicate any symptoms associated with coronavirus-19. Ebola Screen: Patient negative for fever greater than or equal to 101.5 degrees Fahrenheit, and additional compatible Ebola Virus Disease symptoms. Initial Sepsis Screen: Does the patient meet any 2 criteria? No. Patient's initial sepsis screen is negative. Does the patient have a suspected source of infection? No. Patient's initial sepsis screen is negative. Risk Assessment: Do you want to hurt yourself or someone else? Patient reports no desire to harm self or others. Onset of symptoms was September 09, 2020. 13:10 Method Of Arrival: EMS: [facility] jd3 13:10 Acuity: ADRIENNE 3 jd3 Historical: - Allergies: 13:16 Bactrim; jd3 13:16 Inderal; jd3 13:16 PENICILLINS; jd3 - Home Meds: 13:16 gabapentin 300 mg oral cap [Active]; lovastatin 10 mg Oral tab [Active]; amlodipine 5 jd3 mg tab [Active]; losartan 100 mg oral tab [Active]; Insulin: Lantus Sub-Q [Active]; levothyroxine 50 mcg tab [Active]; Travatan Z ophthalmic ophthalmic [Active]; - PMHx: 13:16 breast cancer; Diabetes - NIDDM; Hyperlipidemia; Hypertension; neuropathy; jd3 - PSHx: 13:16 partial hysterectomy; Cholecystectomy; jd3 - Immunization history:: Adult Immunizations up to date, Pneumococcal vaccine is not up to date, Flu vaccine is up to date. - Social history:: Smoking status: Patient denies any tobacco usage or history of. Screenin:17 Abuse screen: Denies threats or abuse. Nutritional screening: No deficits noted. jd3 Tuberculosis screening: No symptoms or risk factors identified. Fall Risk Ambulatory Aid- None/Bed Rest/Nurse Assist (0 pts). Gait- Mental Status- Oriented to own ability (0 pts). Total Escalera Fall Scale indicates No Risk (0-24 pts). Assessment: 13:17 General: Appears in no apparent distress. uncomfortable, Behavior is calm, cooperative, jd3 appropriate for age. Pain: Complains of pain in right upper leg Quality of pain is described as gnawing, numb. Neuro: Level of Consciousness is awake, alert, obeys commands, Oriented to person, place, time, situation. Cardiovascular: Denies chest pain, Capillary refill < 3 seconds Patient's skin is warm and dry. Respiratory: Airway is patent Respiratory effort is even, unlabored, Respiratory pattern is regular, symmetrical, Denies cough, shortness of breath. GI: No signs and/or symptoms were reported involving the gastrointestinal system. : No signs and/or symptoms were reported regarding the genitourinary system. EENT: No signs and/or symptoms were reported regarding the EENT system. Derm: Skin is intact, Skin is dry, Skin is normal, Skin temperature is warm. Musculoskeletal: Circulation, motion, and sensation intact. Range of motion: limited in right hip and right knee. 14:04 Reassessment: Patient appears in no apparent distress at this time. No changes from jd3 previously documented assessment. Patient and/or family updated on plan of care and expected duration. Pain level reassessed. Patient is alert, oriented x 3, equal unlabored respirations, skin warm/dry/pink. 15:10 Reassessment: Patient appears in no apparent distress at this time. Patient and/or jd3 family updated on plan of care and expected duration. Pain level reassessed. Patient is alert, oriented x 3, equal unlabored respirations, skin warm/dry/pink. charge nurse at bedside assisting with Uribe placement. 16:19 Reassessment: Patient appears in no apparent distress at this time. No changes from jd3 previously documented assessment. Patient and/or family updated on plan of care and expected duration. Pain level reassessed. Patient is alert, oriented x 3, equal unlabored respirations, skin warm/dry/pink. 17:30 Reassessment: Patient appears in no apparent distress at this time. Patient and/or jd3 family updated on plan of care and expected duration. Pain level reassessed. Patient is alert, oriented x 3, equal unlabored respirations, skin warm/dry/pink. Patient states feeling better. 18:30 Reassessment: Patient appears in no apparent distress at this time. Patient and/or jd3 family updated on plan of care and expected duration. Pain level reassessed. Patient is alert, oriented x 3, equal unlabored respirations, skin warm/dry/pink. Vital Signs: 13:16 BP 169 / 81; Pulse 73; Resp 15 S; Temp 97.6(O); Pulse Ox 99% on R/A; Weight 52.16 kg jd3 (R); Height 5 ft. 6 in. (167.64 cm) (R); Pain 5/10; 14:06 Pulse 65; Resp 17 S; Pulse Ox 99% on R/A; jd3 15:11 BP 162 / 91; Pulse 69; Resp 18 S; Pulse Ox 99% on R/A; jd3 16:20 BP 148 / 66; Pulse 70; Resp 16 S; Pulse Ox 96% on R/A; jd3 18:43 BP 114 / 67; Pulse 70; Resp 16 S; Pulse Ox 97% on R/A; jd3 13:16 Body Mass Index 18.56 (52.16 kg, 167.64 cm) [facility] ED Course: 13:09 Patient arrived in ED. am2 13:10 Ismael Leroy, RN is Primary Nurse. [facility] 13:12 Triage completed. [facility] 13:17 Arm band placed on. jd3 13:17 Patient has correct armband on for positive identification. Bed in low position. Call [facility] light in reach. Side rails up X 1. Adult w/ patient. Pulse ox on. NIBP on. 13:19 Maintain EMS IV. Dressing intact. Good blood return noted. Site clean \\T\\ dry. Gauge \\T\\ tenzin 3 site: 20 G left AC. 13:20 Warm blanket given. Pillow given. Ice pack to injury. jd3 13:21 Giles Mack PA is PHCP. patrick 13:21 Acosta Lancaster MD is Attending Physician. jmm 14:45 Pelvis XRAY In Process Unspecified. EDMS 14:45 Femur Right XRAY In Process Unspecified. EDMS 15:21 Uribe cath inserted, using sterile technique, 16 Fr., by me, balloon inflated, returned iw clear yellow urine. Patient tolerated well. 16:00 initiated transfer to [facility], pt was accepted in transfer by dr rhodes, admin bd approval given by odin corado, pt family talked to dr quach, he agreed to see the patient, transfer cancelled, pt will stay at [facility]. 16:07 Roberto Higuera is Hospitalizing Provider. jmm Administered Medications: 14:21 Drug: morphine 2 mg Route: IVP; Site: left antecubital; jd3 15:20 Follow up: Response: No adverse reaction; RASS: Alert and Calm (0) jd3 14:21 Drug: Zofran (Ondansetron) 4 mg Route: IVP; Site: left antecubital; jd3 15:20 Follow up: Response: No adverse reaction jd3 15:28 Drug: morphine 2 mg Route: IVP; Site: left antecubital; jd3 16:20 Follow up: Response: No adverse reaction; RASS: Alert and Calm (0) jd3 15:28 Drug: D5-NS 1000 ml Route: IV; Rate: 125 ml/hr; Site: left antecubital; jd3 17:47 Follow up: Response: No adverse reaction; IV Status: Infusion continued upon admission jd3 16:06 Drug: Valium (diazepam) 1 mg Route: IVP; Site: left antecubital; jd3 17:00 Follow up: Response: No adverse reaction jd3 17:03 Drug: morphine 4 mg Route: IVP; Site: left antecubital; jd3 17:47 Follow up: Response: No adverse reaction; RASS: Alert and Calm (0) jd3 Outcome: 15:30 ER care complete, transfer ordered by . jmm 16:08 Decision to Hospitalize by Provider. jmm 20:49 Patient left the ED. jb4 Signatures: Dispatcher [employer] EDMS Kay Vincent Joel, PA PA jmm Lizeth Mirza RN RN iw Bryson, James, RN RN jb4 Karime Austin Jonathon RN RN jd3 Corrections: (The following items were deleted from the chart) 17:48 15:20 Response: No adverse reaction jd3 jd3 17:48 16:20 Response: No adverse reaction jd3 jd3 17:48 17:48 Response: No adverse reaction; RASS: Alert and Calm (0) jd3 jd3
--- NOTE | 2020-09-09 15:31 | EDPHYS ---
Physician Documentation [facility] Name: Heather Garcia Age: 89 yrs Sex: Female : 1930 Arrival Date: 09/09/2020 Time: 13:09 Bed 19 Private MD: ED Physician Acosta Lancaster HPI: 09/09 13:42 This 89 yrs old Female presents to ER via EMS with complaints of Fall Injury. jmm 13:42 Details of fall: The patient fell from an upright position. Onset: The symptoms/episode jmm began/occurred acutely, just prior to arrival. Associated injuries: The patient sustained right leg. The patient has not experienced similar symptoms in the past. This is an 89 year old female with a history of dm, hlp, htn, that presents to the ED with complaints of right leg pain after slipping forward on her walker. Denies head injury. Historical: - Allergies: 13:16 Bactrim; jd3 13:16 Inderal; jd3 13:16 PENICILLINS; jd3 - Home Meds: 13:16 gabapentin 300 mg oral cap [Active]; lovastatin 10 mg Oral tab [Active]; amlodipine 5 jd3 mg tab [Active]; losartan 100 mg oral tab [Active]; Insulin: Lantus Sub-Q [Active]; levothyroxine 50 mcg tab [Active]; Travatan Z ophthalmic ophthalmic [Active]; - PMHx: 13:16 breast cancer; Diabetes - NIDDM; Hyperlipidemia; Hypertension; neuropathy; jd3 - PSHx: 13:16 partial hysterectomy; Cholecystectomy; jd3 - Immunization history:: Adult Immunizations up to date, Pneumococcal vaccine is not up to date, Flu vaccine is up to date. - Social history:: Smoking status: Patient denies any tobacco usage or history of. ROS: 13:42 Constitutional: Negative for fever, chills, and weight loss, Cardiovascular: Negative jmm for chest pain, palpitations, and edema, Respiratory: Negative for shortness of breath, cough, wheezing, and pleuritic chest pain. 13:42 All other systems are negative. Exam: 13:42 Constitutional: This is a well developed, well nourished patient who is awake, alert, jmm and in no acute distress. Head/Face: atraumatic. Eyes: EOMI, no conjunctival erythema appreciated ENT: Moist Mucus Membranes Neck: Trachea midline, Supple Chest/axilla: Normal chest wall appearance and motion. Cardiovascular: Regular rate and rhythm. No edema appreciated Respiratory: Normal respirations, no respiratory distress appreciated Abdomen/GI: Non distended, soft Back: Normal ROM Skin: General appearance color normal 13:42 Musculoskeletal/extremity: painful flexion of the right hip joint, dorsalis pulse intact, compartments are soft, NVI. 13:42 Skin: Appearance: Color: normal in color. 13:42 Neuro: Orientation: is normal, Mentation: is normal, Memory: is normal. 13:42 Psych: Behavior/mood is pleasant, cooperative. Vital Signs: 13:16 BP 169 / 81; Pulse 73; Resp 15 S; Temp 97.6(O); Pulse Ox 99% on R/A; Weight 52.16 kg jd3 (R); Height 5 ft. 6 in. (167.64 cm) (R); Pain 5/10; 14:06 Pulse 65; Resp 17 S; Pulse Ox 99% on R/A; jd3 15:11 BP 162 / 91; Pulse 69; Resp 18 S; Pulse Ox 99% on R/A; jd3 16:20 BP 148 / 66; Pulse 70; Resp 16 S; Pulse Ox 96% on R/A; jd3 18:43 BP 114 / 67; Pulse 70; Resp 16 S; Pulse Ox 97% on R/A; jd3 13:16 Body Mass Index 18.56 (52.16 kg, 167.64 cm) jd3 MDM: 13:21 Patient medically screened. breonna 15:29 Data reviewed: vital signs, nurses notes. Counseling: I had a detailed discussion with patrick the patient and/or guardian regarding: the historical points, exam findings, and any diagnostic results supporting the discharge/admit diagnosis, lab results, radiology results, the need to transfer to another facility. ED course: Patient accepted to [facility] without conference. . 16:06 ED course: I discussed the patient with Dr. York whom will consult on admission, I patrick discussed the patient with Dr. Higuera whom accepted admission. . 09/09 14:55 Order name: CBC with Diff [facility] 09/09 14:55 Order name: CMP [facility] 09/09 14:55 Order name: CBC with Automated Diff; Complete Time: 16:09 EDMS 09/09 14:55 Order name: Comprehensive Metabolic Panel; Complete Time: 15:44 [facility] 09/09 16:51 Order name: SARS-COV-2 RT PCR; Complete Time: 16:57 [facility] 09/09 13:29 Order name: Pelvis XRAY; Complete Time: 15:05 [facility] 09/09 13:29 Order name: Femur Right XRAY; Complete Time: 15:05 [facility] 09/09 17:42 Order name: Troponin (emerg Dept Use Only) [facility] 09/09 17:43 Order name: Chest Single View XRAY [facility] 09/09 18:29 Order name: RAD; Complete Time: 18:30 [facility] 09/09 18:49 Order name: Troponin (Emerg Dept Use Only); Complete Time: 18:52 [facility] 09/09 14:55 Order name: Saline Lock; Complete Time: 15:01 [facility] 09/09 14:56 Order name: Uribe; Complete Time: 15:19 [facility] 09/09 17:42 Order name: EKG - Nurse/Tech; Complete Time: 18:38 [facility] 09/09 18:45 Order name: Diet Regular; Complete Time: 18:46 jd3 Administered Medications: 14:21 Drug: morphine 2 mg Route: IVP; Site: left antecubital; jd3 15:20 Follow up: Response: No adverse reaction; RASS: Alert and Calm (0) jd3 14:21 Drug: Zofran (Ondansetron) 4 mg Route: IVP; Site: left antecubital; jd3 15:20 Follow up: Response: No adverse reaction jd3 15:28 Drug: morphine 2 mg Route: IVP; Site: left antecubital; jd3 16:20 Follow up: Response: No adverse reaction; RASS: Alert and Calm (0) jd3 15:28 Drug: D5-NS 1000 ml Route: IV; Rate: 125 ml/hr; Site: left antecubital; jd3 17:47 Follow up: Response: No adverse reaction; IV Status: Infusion continued upon admission jd3 16:06 Drug: Valium (diazepam) 1 mg Route: IVP; Site: left antecubital; jd3 17:00 Follow up: Response: No adverse reaction jd3 17:03 Drug: morphine 4 mg Route: IVP; Site: left antecubital; jd3 17:47 Follow up: Response: No adverse reaction; RASS: Alert and Calm (0) jd3 Disposition: 09/09/20 16:08 Hospitalization ordered by Roberto Higuera for Inpatient Admission. Preliminary diagnosis is Intertrochanteric fracture of femur. - Bed requested for Telemetry/MedSurg (Inpatient). - Status is Inpatient Admission. jb4 - Condition is Stable. - Problem is new. - Symptoms are unchanged. Addendum: 09/11/2020 06:49 Co-signature as Attending Physician, Acosta Lancaster MD I agree with the assessment and c hwang plan of care. Signatures: Dispatcher [employer] EDMS Kay Vincent Corey, MD MD cha Mickail, Joel, PA PA [facility] Lizeth Mirza, RAISA KLINE iw Juan Jose Beal RN RN jb4 Ismael Leroy RN RN jd3 Corrections: (The following items were deleted from the chart) 09/09 15:44 15:30 09/09/2020 15:30 Transfer ordered to [facility]. Diagnosis is [facility] Intertrochanteric fracture of femur. Reason for transfer: Higher level of care. Accepting physician is Junior Perea. Condition is Stable. Problem is new. Symptoms are unchanged. [facility] 15:58 14:59 CORONAVIRUS+MR.LAB.BRZ ordered. [facility] EDMS 18:26 16:08 Hospitalization Ordered by Roberto Higuera for Inpatient Admission. Preliminary bd diagnosis is Intertrochanteric fracture of femur. Bed requested for Telemetry/MedSurg (Inpatient). Status is Inpatient Admission. Condition is Stable. Problem is new. Symptoms are unchanged. [facility] 19:53 18:26 09/09/2020 16:08 Hospitalization Ordered by Roberto Higuera for Inpatient iw Admission. Preliminary diagnosis is Intertrochanteric fracture of femur. Bed requested for [facility] ER HOLD. Status is Inpatient Admission. Condition is Stable. Problem is new. Symptoms are unchanged. bd 20:49 19:53 09/09/2020 16:08 Hospitalization Ordered by Roberto Higuera for Inpatient jb4 Admission. Preliminary diagnosis is Intertrochanteric fracture of femur. Bed requested for Telemetry/MedSurg (Inpatient). Status is Inpatient Admission. Condition is Stable. Problem is new. Symptoms are unchanged. iw
[2020-09-09 15:42] LABS: Albumin 3.3 g/dL (3.4-5.0); Bilirubin Total 0.3 mg/dL (0.2-1.0); Protein, Total 7.5 g/dL (6.4-8.2)
[2020-09-09] MEDS ORDERED: DIAZEPAM 10 MG/2 ML INJ SYRINGE ONE (16:17)
[2020-09-09] MEDS ORDERED: MORPHINE 4 MG/ML SYR ONE (17:17)
--- NOTE | 2020-09-09 18:21 | P.HP ---
Certification for Inpatient Patient admitted to: Inpatient With expected LOS: >2 Midnights Practitioner: I am a practitioner with admitting privileges, knowledge of patient current condition, hospital course, and medical plan of care. Services: Services provided to patient in accordance with Admission requirements found in Title 42 Section 412.3 of the Code of Federal Regulations Patient History Date of Service: 09/09/20 Reason for admission: Fall History of Present Illness: 89-year-old woman with a history of hypertension, diabetes mellitus type 2 was brought to the emergency department due to a fall at home. Patient at baseline uses a walker. Per family patient fell about 6 months ago and sustained a hairline fracture to her vertebra. X-ray done in the emergency demonstrated right intertrochanteric fracture. Orthopedic surgeon Dr. York contacted who plans to do ORIF and recommended admission to the hospitalist service. - Past Medical/Surgical History -: Hypertension -: Diabetes mellitus type 2 -: Hypothyroid - Family History Father -: Diabetes - Social History Smoking Status: Never smoker Alcohol use: No CD- Drugs: No Place of Residence: Home Review of Systems Other: Patient denied any dizziness or palpitation or shortness of breath prior to the fall. No report of seizures. Except as documented, all other systems reviewed and negative. Physical Examination - Physical Exam General: Alert, In no apparent distress, Oriented x3 HEENT: Normocephalic, PERRLA, Mucous membr. moist/pink, EOMI, Sclerae nonicteric Neck: Supple, JVD not distended Respiratory: Clear to auscultation bilaterally, Normal air movement Cardiovascular: No edema, Regular rate/rhythm, Normal S1 S2, No murmurs Capillary refill: <2 Seconds Gastrointestinal: Normal bowel sounds, Soft and benign, Non-distended, No tenderness Musculoskeletal: No swelling, Tenderness (Laterl right hip) Integumentary: No rashes, No erythema Neurological: Other (No focal motor deficit.) - Studies Laboratory Data (last 24 hrs) 09/09/20 15:08: Sodium 136, Potassium 4.0, BUN 13, Creatinine 0.81, Glucose 96, Total Bilirubin 0.3, AST 14 L, ALT 13, Alkaline Phosphatase 101 09/09/20 15:08: WBC 10.00, Hgb 11.0 L, Hct 33.7 L, Plt Count 205 Assessment and Plan - Problems (Diagnosis) (1) Right femoral fracture Current Visit: Yes Status: Acute (2) Fall Current Visit: Yes Status: Acute (3) Hypertension Current Visit: Yes Status: Acute (4) DM type 2 (diabetes mellitus, type 2) Current Visit: Yes Status: Acute (5) Hypothyroidism Current Visit: Yes Status: Acute - Plan Admit to the medical floor. Supportive measures with IV opiates p.r.n. for pain. Obtain the EKG. Follow chest x-ray result. IV hydration. Obtain UA. Consult orthopedic surgery. Patient has no active cardiac disease, blood sugars is well controlled. Patient condition is optimal for surgery. Resume home medications for hypertension, hypothyroidism. Insulin sliding scale for glucose management. Hold Lantus due to NPO status at midnight. - Advance Directives Does patient have a Living Will: Yes Does patient have a Durable POA for Healthcare: Yes
--- NOTE | 2020-09-09 18:29 | RAD REPORT ---
EXAM DESCRIPTION: RAD - Chest Single View - 09/09/2020 6:18 pm CLINICAL HISTORY: preop, femur fracture COMPARISON: None TECHNIQUE: AP portable chest image was obtained 09/09/2020 6:18 pm . FINDINGS: Fibrotic lung changes are present. There is focally more prominent parenchymal opacificati on in the mid left lung field. It is unknown if the patient had a fall related to the fracture. This could potentially be pulmonary contusion. This does not have a typical masslike configuration. No baldemar lure or volume overload. Heart and vasculature are normal. No measurable pleural effusion and no pneu mothorax. No acute bony abnormality seen. No acute aortic findings suspected. IMPRESSION: Left midlung field infiltrate versus pulmonary contusion superimposed on fibrosis.
[2020-09-09] MEDS: INSULIN -REGULAR HUMAN 50 UNIT/0.5 ML ML SQ SCH (21:36)
[2020-09-09] MEDS ORDERED: ONDANSETRON 4 MG/2 ML VIAL IV PRN ×2 (21:36→21:39)
[2020-09-09 21:39] VITALS: BMI 18.4
[2020-09-09] MEDS: NA CHLORIDE 0.9% 1,000 ML IV SCH (22:07)
[2020-09-09] MEDS: MORPHINE 2 MG/ML SYR IV PRN (22:09)
[2020-09-09] MEDS: HEPARIN 5000 UNIT/ML 1 ML VIAL SQ SCH (22:15)
[2020-09-10 02:12] LABS: Urine Appearance CLEAR (Clear); Urine Bilirubin NEGATIVE (Negataive); Urine Blood 1+ (Negative); Urine Color YELLOW (Yellow); Urine Glucose NEGATIVE (Negative); Urine Protein NEGATIVE (Negative); Urine Urobilinogen 0.2 mg/dL (0.2-1.0); Urine pH 5.5 (5.0-7.0)
[2020-09-10] MEDS: MORPHINE 2 MG/ML SYR IV PRN (02:21)
[2020-09-10 02:26] LABS: Urine Microscopic Reflex ORDER UMIC
[2020-09-10 02:57] LABS: Urine Mucus 2+ /HPF (NONE SEEN)
[2020-09-10 02:59] LABS: Urine Bacteria 20-50 /HPF (<20)
[2020-09-10] MEDS: DIAZEPAM 10 MG/2 ML INJ SYRINGE IV ONE ×2 (03:06→03:09)
[2020-09-10] MEDS ORDERED: FENTANYL CITR 100 MCG/2 ML IV ONE ×2 (04:26→07:39)
[2020-09-10 05:49] LABS: Protime INR 1.16
[2020-09-10 05:53] LABS: Absolute Lymphocytes (CBC) 1.8 K/uL (0.7-4.9); Basophils % 0.8 % (0-1.3); Hematocrit 28.5 % (36.0-45.0); Lymphocytes % 26.8 % (15.3-44.8); MPV 6.8 fL (7.6-11.3); RBC Red Blood Cell Count 3.02 M/uL (3.86-4.86)
[2020-09-10 06:03] LABS: Magnesium 1.8 mg/dL (1.8-2.4); Phosphorus 3.1 mg/dL (2.5-4.9); Potassium 4.1 mmol/L (3.5-5.1)
[2020-09-10] MEDS: Levofloxacin500mg IV 500 MG/100 ML BAG IV SCH (07:03)
[2020-09-10] MEDS: INSULIN -REGULAR HUMAN 50 UNIT/0.5 ML ML SQ SCH ×4 (07:30→21:00)
[2020-09-10] MEDS: NA CHLORIDE 0.9% 1,000 ML IV SCH ×4 (07:36→22:00)
[2020-09-10] MEDS: HEPARIN 5000 UNIT/ML 1 ML VIAL SQ SCH ×2 (08:25→16:29)
[2020-09-10] MEDS ORDERED: MAGNESIUM SULFATE 1 gm IVPB 1 GM/100 ML BAG IV ONE (09:00)
[2020-09-10] MEDS ORDERED: TRAMADOL HCL 50 MG TAB PO PRN (09:25)
--- NOTE | 2020-09-10 10:27 | RAD REPORT ---
EXAM DESCRIPTION: RAD - Foot Right 2 View - 09/10/2020 10:16 am CLINICAL HISTORY: pain Pain and swelling COMPARISON: No comparisons FINDINGS: Advanced osteopenia is seen. This limits bone detail. A fracture is not appreciated. Mild soft tissue swelling is seen about the ankle. Small calcaneal spurs are evident.
[2020-09-10] MEDS ORDERED: HYDROCODONE/APAP 5/325 MG TAB PO PRN (10:41)
--- NOTE | 2020-09-10 10:55 | P.PN ---
Subjective Date of Service: 09/10/20 Chief Complaint: Fall Subjective: Other (Did not sleep well overnight due to pain, feels morphine did not do anything, fentanyl helped a little bit) Physical Examination - Vital Signs Temperature: 100.2 F Blood Pressure: 154/67 Pulse: 83 Respirations: 16 Pulse Ox (%): 99 - Studies Laboratory Data (last 24 hrs) 09/09/20 15:08: Sodium 136, Potassium 4.0, BUN 13, Creatinine 0.81, Glucose 96, Total Bilirubin 0.3, AST 14 L, ALT 13, Alkaline Phosphatase 101 09/09/20 15:08: WBC 10.00, Hgb 11.0 L, Hct 33.7 L, Plt Count 205 Assessment & Plan Physician Review Additional Text: Physical Exam General: Alert, mild distress, in pain HEENT: Normal conjunctiva, sclerae anicteric Respiratory: Clear to auscultation bilaterally, Normal air movement Cardiovascular: No edema, Regular rate/rhythm, Normal S1 S2, No murmurs Gastrointestinal: Normal bowel sounds, Soft and benign, Non-distended, No tenderness Musculoskeletal: Tenderness along the lateral right hip, no swelling, no ecchymosis, wiggles R toes Integumentary: No rashes, No erythema Problem list Right femoral fracture s/p fall Hypertension Diabetes mellitus, type 2; insulin dependent Hypothyroidism Ortho consulted in pain, reports morphine not helping, currently NPO for possible OR today will try IV dilaudid, 0.5 PRN, can try PO medications if not going to OR today continue IVF while NPO UA suggestive of UTI, pt reports maybe had some dysuria, will cover with levaquin Patient has no active cardiac disease, blood sugars is well controlled. Patient condition is optimal for surgery. Resume home medications for hypertension, hypothyroidism. Insulin sliding scale for glucose management. restart lantus post-op Code: full Dispo: anticipate hospitalization > 2days will discuss with family regarding dispo - SNF vs home with PT. unclear at this time Time Spent Managing Pts Care (In Minutes): 35
[2020-09-10] MEDS: HYDROMORPHONE HCL 0.5 MG/0.5 ML INJ IV PRN ×3 (12:42→22:07)
--- NOTE | 2020-09-10 16:35 | EKG ---
Test Date: 2020-09-09 Test Time: 19:04:11 Tension Machine Operator: ANTHONY MEASUREMENT RESULTS: Intervals: Rate: 61 TX: QRSD: 126 QT: 454 QTc: 457 [place]: P: TX: QRS: -37 T: 125 INTERPRETIVE STATEMENTS: Wide QRS rhythm Left axis deviation Left bundle branch block Abnormal ECG No previous ECG available for comparison Electronically Signed On 09-10-20 16:33:04 CDT by Jaime Mena
--- NOTE | 2020-09-11 01:10 | CON ---
Date of Consultation: 09/10/2020 Reason For Consultation: Right hip pain. History Of Present Illness: Heather is an 89-year-old female with history of hypertension, diabetes, who presented to the ER yesterday after sustaining a fall onto her right side with subsequent pain t o her right hip. She had x-rays of the right hip, which demonstrated a right intertrochanteric femur fracture. The patient was admitted to the floor under the hospitalist service. The patient reports pain in her right hip and over her right heel at this time. She denies any other musculoskeletal co mplaints. Prior to the fall, the patient was mobilizing with the use of a walker. Review of Systems: As above, otherwise negative. Past Medical History: Includes hypertension, diabetes, hypothyroidism. Family History: Positive for diabetes in her father. Social History: Denies tobacco, alcohol, or drug use. Lives at home. Physical Examination: General: No apparent distress. HEENT: Normocephalic, atraumatic. Neck: Supple. Cardiovascular: Brisk cap refill to all digits. Chest: Nonlabored breathing. Abdomen: Nondistended. Psychiatric: Response to exam. Musculoskeletal: Right lower extremity pain with range of motion of the right hip, tenderness to pal pation of the right hip. Mild tenderness to palpation over the malleoli as well as a heel. Left low er extremity functional range of motion. No pain. No gross deformities. No obvious dislocations. Bilateral upper extremities, functional range of motion without pain. No gross deformities. No obvi ous dislocations. X-rays: X-rays of the right hip demonstrate a right intertrochanteric femur fracture. Assessment/plan: Ms. Garcia is an 89-year-old female with a right intertrochanteric femur fracture. I discussed with the patient and her family at length risks, benefits associated with operative and nonoperative treatment. I recommended treatment with cephalomedullary fixation of her right hip frac ture. Risks and benefits associated with the procedure discussed with the patient and family at roberta th. Next, best understanding, we will proceed with surgery tomorrow pending medical clearance. The patient is starting off with a slightly anemic and I discussed with the patient and her family the po ssibility of needing a blood transfusion postoperatively. CV/MODL Voice ID: [id number] Report ID: [id number]
[2020-09-11] MEDS: HYDROMORPHONE HCL 0.5 MG/0.5 ML INJ IV PRN ×4 (03:14→21:04)
[2020-09-11] MEDS: NA CHLORIDE 0.9% 1,000 ML IV SCH ×2 (03:36→11:18)
[2020-09-11 05:26] LABS: Absolute Lymphocytes (CBC) 1.1 K/uL (0.7-4.9); Basophils % 0.5 % (0-1.3); Hematocrit 28.7 % (36.0-45.0); Lymphocytes % 12.2 % (15.3-44.8); MPV 7.3 fL (7.6-11.3); RBC Red Blood Cell Count 3.07 M/uL (3.86-4.86)
[2020-09-11 05:34] LABS: Magnesium 1.9 mg/dL (1.8-2.4)
[2020-09-11] MEDS: Levofloxacin500mg IV 500 MG/100 ML BAG IV SCH (06:06)
[2020-09-11] MEDS: INSULIN -REGULAR HUMAN 50 UNIT/0.5 ML ML SQ SCH ×4 (07:30→21:00)
[2020-09-11] MEDS ORDERED: CLINDAMYCIN INJ 600 MG in NA CHLORIDE 0.9% 50 ML IV ONE (08:15)
[2020-09-11] MEDS ORDERED: FENTANYL CITR 100 MCG/2 ML ONE ×2 (08:18→08:57)
[2020-09-11] MEDS ORDERED: propofoL 200 MG/20 ML VIAL IV ONE ×3 (08:18→08:58)
[2020-09-11] MEDS ORDERED: NA CHLORIDE 0.9% 1,000 ML ONE (08:20)
[2020-09-11] MEDS ORDERED: ONDANSETRON 4 MG/2 ML VIAL ONE (09:59)
--- NOTE | 2020-09-11 10:08 | P.BOP ---
Preoperative diagnosis: right intertrochanteric femur fracture Postoperative diagnosis: denisse Primary procedure: cephalomedullary fixation of the right intertrochanteric femur fracture Intelligence Operations Specialist: NONE,NONE Estimated blood loss: 50 cc Specimen: none Findings: se dictation Anesthesia: General Complications: None Drain(s): Urinary catheter Implants: [id number] mm Biomet Affixus nail 125 degree, 95 mm lag screw Fluids & blood products: per anesthesia record Transferred to: Recovery Room Condition: Good
[2020-09-11] MEDS ORDERED: DOCUSATE NA 100 MG CAP PO PRN (10:14)
[2020-09-11] MEDS: FENTANYL CITR 100 MCG/2 ML ONE ×2 (10:27→10:33)
[2020-09-11 10:47] LABS: Hematocrit 31.7 % (36.0-45.0)
--- NOTE | 2020-09-11 11:23 | RAD REPORT ---
EXAM DESCRIPTION: RAD - Hip Right 2 View - 09/11/2020 11:12 am CLINICAL HISTORY: postop COMPARISON: Hip In Or dated 09/11/2020; Pelvis dated 09/09/2020 FINDINGS: Portable AP and cross-table lateral views of the right hip joint and proximal femur obtain ed. Surgical hardware has been placed fixing a previously detailed intertrochanteric fracture. Hardware i s in good position. No suspicious or unexpected finding.
--- NOTE | 2020-09-11 11:42 | RAD REPORT ---
EXAM DESCRIPTION: RAD - Hip In Or - 09/11/2020 10:13 am FINDINGS: There were 7 portable C-arm views submitted from fluoroscopic assisted placement of fractu re fixation hardware into the right femur. No suspicious or unexpected finding. Fluoro time was 1.0 minutes. Cumulative dose was 5.40 mGy.
--- NOTE | 2020-09-11 16:49 | P.PN ---
Subjective Date of Service: 09/11/20 Chief Complaint: Fall Subjective: Other (patient seen after surgery. reports pain at tailbone from laying flat, also with cramping abdominal pain, unsure if she is passing gas, last BM was ~3 days ago) Review of Systems 10-point ROS is otherwise unremarkable Physical Examination - Vital Signs Temperature: 98.1 F Blood Pressure: 130/60 Pulse: 82 Respirations: 16 Pulse Ox (%): 95 Assessment & Plan Physician Review Additional Text: Physical Exam General: Alert, mild distress, in pain HEENT: Normal conjunctiva, sclerae anicteric Respiratory: Clear to auscultation bilaterally, shallow respiration Cardiovascular: No edema, Regular rate/rhythm, Normal S1 S2, No murmurs Gastrointestinal: hyperactive bowel sounds, soft, nontender, non-distended Musculoskeletal: Tenderness along the lateral right hip, surgical dressing c/d/i, wiggles toes bilaterally Integumentary: No rashes, No erythema Problem list Right femoral fracture s/p fall - now w/p repair (09/11) Hypertension Diabetes mellitus, type 2; insulin dependent Hypothyroidism Ortho consulted - pt s/p repair (09/11) dilaudid and tramadol for pain control diet was advanced, can dc IVF Urine culture without growth, dc antibiotics Resume home medications for hypertension, hypothyroidism as appropriate Insulin sliding scale for glucose management. restart lantus post-op once tolerating diet KUB ordered Code: full Dispo: anticipate hospitalization > 2days will discuss with family regarding dispo - SNF vs home with PT. unclear at this time Time Spent Managing Pts Care (In Minutes): 35
[2020-09-11] MEDS: CLINDAMYCIN INJ 600 MG in NA CHLORIDE 0.9% 50 ML IV SCH (16:50)
--- NOTE | 2020-09-11 17:05 | RAD REPORT ---
EXAM DESCRIPTION: RAD - Abdomen 1 View (KUB) - 09/11/2020 4:32 pm CLINICAL HISTORY: Abdomen pain. FINDINGS: The bowel gas pattern is unremarkable. A moderate amount of stool is present throughout the colon. Pelvic calcifications phleboliths. Vascular calcifications are noted.
[2020-09-11] MEDS: ATORVASTATIN 10 MG TAB PO SCH (21:03)
[2020-09-12] MEDS: CLINDAMYCIN INJ 600 MG in NA CHLORIDE 0.9% 50 ML IV SCH ×2 (00:50→08:38)
[2020-09-12] MEDS: HYDROMORPHONE HCL 0.5 MG/0.5 ML INJ IV PRN ×2 (01:10→05:57)
[2020-09-12 06:04] LABS: Absolute Lymphocytes (CBC) 1.2 K/uL (0.7-4.9); Basophils % 0.3 % (0-1.3); Hematocrit 25.4 % (36.0-45.0); Lymphocytes % 9.7 % (15.3-44.8); MPV 7.3 fL (7.6-11.3); RBC Red Blood Cell Count 2.69 M/uL (3.86-4.86)
[2020-09-12 06:24] LABS: Potassium 4.3 mmol/L (3.5-5.1)
[2020-09-12] MEDS: INSULIN -REGULAR HUMAN 50 UNIT/0.5 ML ML SQ SCH ×4 (07:30→21:53)
[2020-09-12] MEDS ORDERED: HYDROMORPHONE HCL 0.5 MG/0.5 ML INJ IV PRN (08:21)
[2020-09-12] MEDS: GABAPENTIN 300 MG CAP PO SCH (08:38)
[2020-09-12] MEDS: ENOXAPARIN 40 MG/0.4 ML SQ SCH (08:39)
[2020-09-12] MEDS ORDERED: NA CHLORIDE 0.9% 250 ML ONE (09:06)
--- NOTE | 2020-09-12 09:46 | P.PN ---
Subjective Date of Service: 09/12/20 Chief Complaint: Fall Subjective: Other (continues with pain at "tailbone" 03/09 at times. repositioning helps temporarily. With R hip pain as well after surgery. Dilaudid helps temporarily, makes her very sleepy per daughter. Morphine didn't help pre- op. Daughter reports +flatus, no BM, states pt has said she "hurts all over") Review of Systems 10-point ROS is otherwise unremarkable Physical Examination - Vital Signs Temperature: 98.3 F Blood Pressure: 116/57 Pulse: 102 Respirations: 20 Pulse Ox (%): 96 Assessment & Plan Physician Review Additional Text: Physical Exam General: Alert, appears in pain / uncomfortable HEENT: Normal conjunctiva, sclerae anicteric Respiratory: Clear to auscultation bilaterally, shallow respiration Cardiovascular: HR: 90-100, regular rhythm, no murmur Gastrointestinal: hyperactive bowel sounds, soft, non-distended, mild tenderness in epigastrium Musculoskeletal: Tenderness along the lateral right hip, surgical dressing c/d/i, wiggles toes bilaterally, b/l feet warm Integumentary: No rashes, No erythema Problem list Right femoral fracture s/p fall - now w/p repair (09/11) Hypertension Diabetes mellitus, type 2; insulin dependent Hypothyroidism Abdominal discomfort Ortho consulted - pt s/p repair (09/11) dilaudid and tramadol for pain control - family/patient state tramadol "doesn't do anything" - will decrease dilaudid today, change tramadol to norco difficult to obtain accurate physical exam, pt hard of hearing, with dementia, unable to tell me if pain in abdomen, or grimacing from tailbone pain will obtain CT abd/pelvis - eval abdomen, and further eval pelvis, did not have on admission low appetite last night. Daughter states will encourage breakfast, will re-start gentle IVF Urine culture without growth, antibiotic discontinued on 09/11 Resumed home medications for hypertension, hypothyroidism as appropriate Insulin sliding scale for glucose management. restart lantus post-op once tolerating diet PT to eval today, WBAT per Ortho Code: full Dispo: anticipate hospitalization > 2days family looking into inpatient rehab as option; possibly SNF as backup Time Spent Managing Pts Care (In Minutes): 35
--- NOTE | 2020-09-12 09:59 | RAD REPORT ---
EXAM DESCRIPTION: CT - Abdomen Pelvis Wo Contrast - 09/12/2020 9:11 am CLINICAL HISTORY: Abdominal pain. abdominal pain, coccyx pain COMPARISON: No comparisons TECHNIQUE: CT imaging of the abdomen and pelvis was performed without contrast. Solid organ, bowel a nd vascular assessment is limited due to lack of IV and oral contrast. All CT scans are performed using dose optimization technique as appropriate and may include automated exposure control or mA/KV adjustment according to patient size. FINDINGS: Mild linear subsegmental atelectasis is present both posterior lung bases.Small bilateral pleural effusions. The liver, spleen, pancreas, adrenal glands and kidneys are within normal limits for a limited non-co ntrast examination. No bowel obstruction, free air, intra-abdominal free fluid or abscess. There is prominent diverticul osis coli of the sigmoid colon without diverticulitis. Small pelvic free fluid. Moderate lumbar degenerative changes.No sacrococcygeal fracture. IMPRESSION: No acute intra-abdominal or pelvic findings. Moderate sigmoid diverticulosis coli without diverticulitis. Small bilateral pleural effusions. A limited non-contrast examination was performed as detailed.
[2020-09-12] MEDS: HYDROCODONE/APAP 5/325 MG TAB PO PRN ×2 (10:18→17:49)
[2020-09-12 11:14] LABS: Blood Morphology Comment NOT SEEN (NOT SEEN); Platelet Estimate DECR; White Blood Cell Scan OK (OK)
[2020-09-12] MEDS: NA CHLORIDE 0.9% 1,000 ML IV SCH (13:20)
[2020-09-12] MEDS ORDERED: BISACODYL 10 MG RECTAL SUPP PR ONE (13:21)
--- NOTE | 2020-09-12 20:14 | OP ---
Date of Procedure: 09/11/2020 Surgeon: Leland York MD Preoperative Diagnosis: Right intertrochanteric femur fracture. Postoperative Diagnosis: Right intertrochanteric femur fracture. Procedure Performed: Cephalomedullary fixation of right intertrochanteric femur fracture. Anesthesia: General, LMA. Fluids: Per Anesthesia record. Ebl: 50 cc. Complications: None. Implants: 11 x 180 mm Biomet Affixus nail 125 degrees, 95 mm lag screw. Indication For Procedure: Heather is an 89-year-old female who presented to the emergency room after sustaining a fall onto her right side with subsequent pain and x-rays demonstrated a right intertroc hanteric femur fracture. We discussed with the patient and her family at length risks and benefits a ssociated with operative and nonoperative treatment. She expressed understanding and elected to proc eed with operative treatment. Description Of Procedure: After informed consent was obtained, the patient was identified in the pre operative holding area. The right lower extremity was marked. The patient was then brought back to the operating room, transferred to the operating table in a supine fashion, and placed under general LMA anesthesia. She was placed on the fracture table with her extremities well padded. Her left hip was gently flexed, then abducted to allow for approach of C-arm. Under fluoroscopic guidance, the r ight hip was placed on the fracture table and fluoroscopy demonstrated overall good reduction of the fracture. The right lower extremity was then prepped and draped in usual sterile fashion. A time-ou t was initiated. The correct patient and procedure were confirmed and identified. The patient did r eceive her preoperative prophylactic antibiotics. Attention was first taken where approximately a 5 cm longitudinal incision was made just proximal to the greater trochanter. A guide pin was then plac ed on the tip of the greater trochanter, placed on the femoral canal in an antegrade fashion. Once c onfirmed to be in proper position using fluoroscopy, an entry reamer was then placed over the guidewi re in an antegrade fashion. A blunt-tipped long guidewire was placed down the femoral canal in anteg rade fashion and confirmed to be in place using fluoroscopy. Using sequential reamers starting at 8 mm reamer in 1 mm increments, the femoral canal was reamed. Size 11 x 180 mm nail was selected as th ere was more than 2 cortical diameters away from the distal to the fracture tip was confirmed with th e distal tip of the nail. The nail was then placed. A second incision was made over the lateral thi gh and a guide pin was placed in a center-center position in the femoral head. A 95 mm lag screw was placed and locked into position. A single interlocking screw was placed in bicortical fashion at th e distal tip of the nail, again using the jig. Jig was then removed. Wounds were then irrigated tho roughly with normal saline. Deep tissue was approximated using a 0 Vicryl. Subcutaneous tissue was approximated using a 2-0 Vicryl. Skin was approximated using estephania. A sterile dressing was applie d. The patient was awakened and transferred to PACU in stable condition. Postoperative Plan: Ms. Garcia will be weightbearing as tolerated of her right lower extremity. Phy sical Therapy will be consulted to aid with normalization. CV/MODL Voice ID: [id number] Report ID: [id number]
[2020-09-12] MEDS: LATANOPROST 0.005% OPTH SCH (21:00)
[2020-09-12] MEDS: OPTHALMIC OPTH SCH (21:00)
[2020-09-12] MEDS: ATORVASTATIN 10 MG TAB PO SCH (21:49)
[2020-09-13] MEDS: HYDROCODONE/APAP 5/325 MG TAB PO PRN ×2 (03:22→16:59)
[2020-09-13 05:43] LABS: Absolute Lymphocytes (CBC) 0.9 K/uL (0.7-4.9); Basophils % 0.4 % (0-1.3); Hematocrit 25.8 % (36.0-45.0); Lymphocytes % 7.8 % (15.3-44.8); MPV 7.6 fL (7.6-11.3); RBC Red Blood Cell Count 2.76 M/uL (3.86-4.86)
[2020-09-13] MEDS: NA CHLORIDE 0.9% 1,000 ML IV SCH (05:54)
[2020-09-13 06:20] LABS: Potassium 4.2 mmol/L (3.5-5.1)
[2020-09-13] MEDS: GABAPENTIN 300 MG CAP PO SCH (08:18)
[2020-09-13] MEDS: ENOXAPARIN 40 MG/0.4 ML SQ SCH (08:19)
[2020-09-13] MEDS: INSULIN -REGULAR HUMAN 50 UNIT/0.5 ML ML SQ SCH ×4 (08:20→22:17)
--- NOTE | 2020-09-13 09:59 | P.PN ---
Subjective Date of Service: 09/12/20 Chief Complaint: Fall Subjective: Working w/ PT drowsy; just received pain medication; sat up with PT this AM Physical Examination - Vital Signs Temperature: 97.6 F Blood Pressure: 129/60 Pulse: 106 Respirations: 18 Pulse Ox (%): 95 - Physical Exam General: In no apparent distress Musculoskeletal: Other (RLE: dressing c/d/i; +EHL/FHL/GSC/TA; sensation grossly intact distally) Assessment And Plan - Plan Heather is an 89 yo female s/p right hip IMN POD #1 -PT to mobilize; WBAT RLE -lovenox for DVT prophylaxis -acute blood loss anemia; continue to monitor h/h
--- NOTE | 2020-09-13 10:01 | P.PN ---
Subjective Date of Service: 09/13/20 Chief Complaint: Fall Subjective: Working w/ PT resting in bed; more alert today per daughter; moving legs more Physical Examination - Vital Signs Temperature: 97.6 F Blood Pressure: 129/60 Pulse: 106 Respirations: 18 Pulse Ox (%): 95 - Physical Exam General: In no apparent distress Musculoskeletal: Other (RLE: dressing c/d/i; minimal swelling right thigh) Assessment And Plan - Plan Heather is an 89 yo female s/p right hip IMN POD #2 -PT to mobilize; WBAT RLE -lovenox for DVT prophylaxis -acute blood loss anemia; h/h stable from yesterday -d/c darrell
--- NOTE | 2020-09-13 10:40 | P.PN ---
Subjective Date of Service: 09/13/20 Chief Complaint: Fall Subjective: Improving (feeling better today, still reports pain "all over", more alert, tolerated dinner, +BM yesterday) Review of Systems 10-point ROS is otherwise unremarkable Physical Examination - Vital Signs Temperature: 97.6 F Blood Pressure: 129/60 Pulse: 106 Respirations: 18 Pulse Ox (%): 95 Assessment & Plan Physician Review Additional Text: Physical Exam General: Alert, appears uncomfortable HEENT: Normal conjunctiva, sclerae anicteric Respiratory: Clear to auscultation bilaterally, shallow respiration Cardiovascular: regular rate, regular rhythm, no murmur Gastrointestinal: soft, non-distended, mild tenderness around umbilicus / suprapubic Musculoskeletal: surgical dressing c/d/i, wiggles toes bilaterally, b/l feet warm/perfused Integumentary: No rashes, No erythema Problem list Right femoral fracture s/p fall - now w/p repair (09/11) Hypertension Diabetes mellitus, type 2; insulin dependent Hypothyroidism Abdominal discomfort acute blood loss anemia Ortho consulted - pt s/p repair (09/11) norco for pain control, dilaudid for severe breakthrough, pain seems to be improved CT abd/pelvis yesterday without any acute findings, pt had BM yesterday, feels better dc IVF Urine culture without growth, antibiotic discontinued on 09/11, will recheck UA, pt with lower abdominal pain Resumed home medications for hypertension, hypothyroidism Insulin sliding scale for glucose management. restart lantus post-op once tolerating diet PT consulted, WBAT per Ortho dc ramírez today wean O2 Code: full Dispo: improving slowly, family looking into inpatient rehab as option; possibly SNF as backup anticipate dc in ~24-48hrs Time Spent Managing Pts Care (In Minutes): 35
[2020-09-13 12:49] LABS: Urine Appearance CLOUDY (Clear); Urine Bilirubin NEGATIVE (Negataive); Urine Blood 1+ (Negative); Urine Color YELLOW (Yellow); Urine Glucose NEGATIVE (Negative); Urine Protein TRACE (Negative); Urine Urobilinogen 0.2 mg/dL (0.2-1.0); Urine pH 5.5 (5.0-7.0)
[2020-09-13 12:51] LABS: Urine Microscopic Reflex ORDER UMIC
[2020-09-13 12:59] LABS: Urine Bacteria <20 /HPF (<20); Urine RBC <5 /HPF (NONE SEEN); Urine Yeast MANY (NONE SEEN)
[2020-09-13] MEDS: LATANOPROST 0.005% OPTH SCH (21:00)
[2020-09-13] MEDS: OPTHALMIC OPTH SCH (21:00)
[2020-09-13] MEDS: ATORVASTATIN 10 MG TAB PO SCH (22:11)
[2020-09-14 06:24] LABS: Potassium 3.8 mmol/L (3.5-5.1)
[2020-09-14 06:25] LABS: Absolute Lymphocytes (CBC) 0.9 K/uL (0.7-4.9); Basophils % 0.7 % (0-1.3); Hematocrit 27.3 % (36.0-45.0); Lymphocytes % 10.7 % (15.3-44.8); MPV 7.9 fL (7.6-11.3); RBC Red Blood Cell Count 2.89 M/uL (3.86-4.86)
--- NOTE | 2020-09-14 07:43 | RAD REPORT ---
EXAM DESCRIPTION: RAD - Chest Single View - 09/14/2020 7:10 am CLINICAL HISTORY: SOB, eval effusions COMPARISON: CT examination September 12, portable chest September 09 TECHNIQUE: AP portable chest image was obtained 09/14/2020 7:10 am . FINDINGS: Left midlung field opacification is similar to slightly improved from the September 09 study. Lower lung volumes accentuate the overall pattern throughout both lung pulido. No progressive lung pa renchymal process seen. Heart and vasculature are normal. No pneumothorax. Small left pleural effusion is evident. There is small right pleural effusion as well. The low lung v olumes will accentuate the pleural effusions. Slight increase on the left is possible and can be josé tored on subsequent imaging. IMPRESSION: Left lung field opacification is similar to fractionally improved since September 09. Bilateral pleural effusions are present. Left-side may be slightly increased. Interval change is not substantial.
[2020-09-14] MEDS: ENOXAPARIN 40 MG/0.4 ML SQ SCH (08:15)
[2020-09-14] MEDS: INSULIN -REGULAR HUMAN 50 UNIT/0.5 ML ML SQ SCH ×4 (08:15→21:56)
[2020-09-14] MEDS: GABAPENTIN 300 MG CAP PO SCH ×2 (08:16→21:55)
[2020-09-14] MEDS ORDERED: POTASSIUM 25 MEQ EFFERV TAB PO ONE (09:00)
[2020-09-14] MEDS: HYDROCODONE/APAP 5/325 MG TAB PO PRN ×2 (11:22→20:50)
--- NOTE | 2020-09-14 13:56 | P.PN ---
Subjective Date of Service: 09/14/20 Chief Complaint: Fall Subjective: Improving (granddaughter at bedside, states patient has been moving more, patient reports she is in pain, "tailbone hruts" from laying, she is frequently being turned. Hip pain with movement, pain improves with medication) Review of Systems 10-point ROS is otherwise unremarkable Physical Examination - Vital Signs Temperature: 98.9 F Blood Pressure: 132/65 Pulse: 106 Respirations: 20 Pulse Ox (%): 98 Assessment & Plan Physician Review Additional Text: Physical Exam General: Alert, appears uncomfortable HEENT: Normal conjunctiva, sclerae anicteric, hard of hearing Respiratory: Clear to auscultation bilaterally, shallow respiration, on 2L NC CV: regular rate, regular rhythm, no murmur GI: soft, non-distended, non-tender Ext: surgical dressing c/d/i, wiggles toes bilaterally, b/l feet warm/well- perfused No rashes, No erythema Problem list Right femoral fracture s/p fall - now s/p repair (09/11) Hypertension Diabetes mellitus, type 2; insulin dependent Hypothyroidism Abdominal discomfort acute blood loss anemia Ortho consulted - pt s/p repair (09/11) norco for pain control, dilaudid for severe breakthrough, pain overall seems to be improving. patient appears very sensitive to pain, low motivation Urine culture without growth, antibiotic discontinued on 09/11, repeat urine culture without growth, leukocytosis resolved - likely reactive Resumed home medications for hypertension, hypothyroidism Insulin sliding scale for glucose management. restart lantus post-op once tolerating diet PT consulted, WBAT per Ortho ramírez removed 09/13, pt voiding without issue small b/l pleural effusions - improving, was on IVF for several day perioperatively wean O2 Code: full Dispo: improving slowly, inpatient rehab consulted and denied, peer to peer to be done on Wednesday Time Spent Managing Pts Care (In Minutes): 35
[2020-09-14] MEDS: ATORVASTATIN 10 MG TAB PO SCH (20:52)
[2020-09-14] MEDS: OPTHALMIC OPTH SCH (20:53)
[2020-09-14] MEDS: LATANOPROST 0.005% OPTH SCH (20:53)
[2020-09-15 06:53] LABS: Potassium 3.8 mmol/L (3.5-5.1)
[2020-09-15] MEDS: INSULIN -REGULAR HUMAN 50 UNIT/0.5 ML ML SQ SCH ×4 (07:30→20:54)
[2020-09-15] MEDS: ENOXAPARIN 40 MG/0.4 ML SQ SCH (09:00)
[2020-09-15] MEDS: GABAPENTIN 300 MG CAP PO SCH ×2 (09:04→20:53)
[2020-09-15] MEDS: HYDROCODONE/APAP 5/325 MG TAB PO PRN ×2 (09:04→19:31)
[2020-09-15] MEDS: ACETAMINOPHEN 500 MG TAB PO PRN (12:12)
--- NOTE | 2020-09-15 13:15 | P.PN ---
Subjective Date of Service: 09/15/20 Chief Complaint: Fall Subjective: Improving (Worked with PT yesterday, seems to be moving more, continues with pain on tailbone and right hip. Some nausea when standing, no vomiting, no diarrhea. She had a bowel movement yesterday, tolerating diet but with decreased appetite.) Review of Systems 10-point ROS is otherwise unremarkable Physical Examination - Vital Signs Temperature: 97.2 F Blood Pressure: 120/57 Pulse: 89 Respirations: 20 Pulse Ox (%): 99 Assessment & Plan Physician Review Additional Text: Physical Exam General: Alert, NAD HEENT: Normal conjunctiva, sclerae anicteric, hard of hearing Respiratory: Clear to auscultation bilaterally, shallow respiration, on 2L NC, nonlabored CV: regular rate, regular rhythm, no murmur GI: soft, non-distended, non-tender Ext: surgical dressing c/d/i, wiggles toes bilaterally, b/l feet warm/well- perfused, pt hesitant to move R foot/leg due to pain No rashes, No erythema Problem list Right femoral fracture s/p fall - now s/p repair (09/11) Hypertension Diabetes mellitus, type 2; insulin dependent Hypothyroidism Abdominal discomfort acute blood loss anemia Ortho consulted - pt s/p repair (09/11) norco for pain control, pain overall seems to be improving. patient appears very sensitive to pain, low motivation Urine culture without growth, antibiotic discontinued on 09/11, repeat urine culture without growth, leukocytosis resolved - likely reactive Resumed home medications for hypertension, hypothyroidism Insulin sliding scale for glucose management. restart lantus post-op once tolerating diet more consistently PT consulted, WBAT per Ortho ramírez removed 09/13, pt voiding without issue small b/l pleural effusions - improving, was on IVF for several days perioperatively wean O2 Code: full Dispo: improving slowly, inpatient rehab consulted and denied, peer to peer to be done on Wednesday by Dr. Plascencia discuss with family - need to be considering plan B - ?SNF vs home Time Spent Managing Pts Care (In Minutes): 35
[2020-09-15] MEDS: LATANOPROST 0.005% OPTH SCH (20:46)
[2020-09-15] MEDS: OPTHALMIC OPTH SCH (20:46)
[2020-09-15] MEDS: ATORVASTATIN 10 MG TAB PO SCH (20:53)
[2020-09-16] MEDS: INSULIN -REGULAR HUMAN 50 UNIT/0.5 ML ML SQ SCH ×4 (07:30→20:57)
[2020-09-16] MEDS: GABAPENTIN 300 MG CAP PO SCH ×2 (09:13→20:56)
[2020-09-16] MEDS: ENOXAPARIN 40 MG/0.4 ML SQ SCH (09:13)
[2020-09-16] MEDS: HYDROCODONE/APAP 5/325 MG TAB PO PRN ×3 (09:21→22:48)
--- NOTE | 2020-09-16 12:41 | P.PN ---
Subjective Date of Service: 09/16/20 Chief Complaint: Fall Subjective: Improving (more alert, moving around more, sitting up in chair at bedside, family report she is doing better. Despite this, patient still states she is in lots of pain and not doing well) Review of Systems 10-point ROS is otherwise unremarkable Physical Examination - Vital Signs Temperature: 98.2 F Blood Pressure: 127/62 Pulse: 101 Respirations: 20 Pulse Ox (%): 96 Assessment & Plan Physician Review Additional Text: Physical Exam General: Alert, NAD HEENT: Normal conjunctiva, sclerae anicteric, hard of hearing Respiratory: Clear to auscultation bilaterally, shallow respiration, nonlabored on RA CV: regular rate, regular rhythm, no murmur GI: soft, non-distended, non-tender Ext: surgical dressing c/d/i, wiggles toes bilaterally, b/l feet warm/well-perf used, pt hesitant to move R foot/leg due to pain, less pain when patient is distracted No rashes, No erythema Problem list Right femoral fracture s/p fall - now s/p repair (09/11) Hypertension Diabetes mellitus, type 2; insulin dependent Hypothyroidism Abdominal discomfort acute blood loss anemia Ortho consulted - pt s/p repair (09/11) norco for pain control, pain overall seems to be improving. patient appears very sensitive to pain, low motivation Urine culture without growth, antibiotic discontinued on 09/11, repeat urine culture without growth, leukocytosis resolved - likely reactive Resumed home medications for hypertension, hypothyroidism Insulin sliding scale for glucose management. PT consulted, WBAT per Ortho ramírez removed 09/13, pt voiding without issue small b/l pleural effusions - improving, was on IVF for several days perioperatively Code: full Dispo: improving, inpatient rehab consulted and denied, peer to peer to be done today by Dr. Plascencia discussed with family - need to be considering plan B - ?SNF vs home; want to wait until results of peer to peer Time Spent Managing Pts Care (In Minutes): 35
[2020-09-16] MEDS ORDERED: D50W 25 GM/50 ML SYRINGE IV PRN (12:42)
[2020-09-16] MEDS ORDERED: GLUCAGON 1 MG/VIAL IM PRN (12:42)
[2020-09-16] MEDS: ACETAMINOPHEN 500 MG TAB PO PRN (20:55)
[2020-09-16] MEDS: ATORVASTATIN 10 MG TAB PO SCH (20:56)
[2020-09-16] MEDS: GLUCERNA SHAKE 237 ML CAN PO SCH (20:57)
[2020-09-16] MEDS: LATANOPROST 0.005% OPTH SCH (20:57)
[2020-09-16] MEDS: OPTHALMIC OPTH SCH (20:57)
[2020-09-16] MEDS ORDERED: MORPHINE 2 MG/ML SYR IV PRN (23:41)
[2020-09-17 06:12] LABS: Magnesium 1.9 mg/dL (1.8-2.4); Phosphorus 2.8 mg/dL (2.5-4.9); Potassium 4.3 mmol/L (3.5-5.1)
[2020-09-17] MEDS: GLUCERNA SHAKE 237 ML CAN PO SCH ×2 (07:56→20:42)
[2020-09-17] MEDS: INSULIN -REGULAR HUMAN 50 UNIT/0.5 ML ML SQ SCH ×4 (07:56→20:59)
[2020-09-17] MEDS: INSULIN GLARGINE 100 UNITS/ML SQ SCH (07:56)
[2020-09-17] MEDS: GABAPENTIN 300 MG CAP PO SCH ×2 (07:57→20:43)
[2020-09-17] MEDS: HYDROCODONE/APAP 5/325 MG TAB PO PRN ×2 (07:57→15:15)
[2020-09-17] MEDS: ENOXAPARIN 40 MG/0.4 ML SQ SCH (07:58)
--- NOTE | 2020-09-17 09:27 | RAD REPORT ---
EXAM DESCRIPTION: RAD - Hip Right 2 View - 09/17/2020 9:15 am CLINICAL HISTORY: pain, recent fracture repair COMPARISON: Right hip September 11 FINDINGS: AP and cross-table lateral views were obtained. Proximal right femur fracture fixation hardware is in place. No change in positioning of the hardware . No new fracture or change in alignment of the right femur fracture fragments. Hip joint and SI joint degenerative changes again noted. No new right hemipelvis finding. Old left-si ded inferior pubic ramus and anterior column fractures noted. No acute or destructive bony process se en. IMPRESSION: No change in positioning of the fracture fixation hardware and no new findings of the na tive bone.
--- NOTE | 2020-09-17 15:41 | P.PN ---
Subjective Date of Service: 09/17/20 Chief Complaint: Fall Patient has no complain. She participated in physical therapy and ambulated a few feet today. Physical Examination - Vital Signs Temperature: 97.6 F Blood Pressure: 122/58 Pulse: 93 Respirations: 18 Pulse Ox (%): 98 - Physical Exam General: Alert, In no apparent distress, Oriented x3 HEENT: Mucous membr. moist/pink Neck: Supple Respiratory: Clear to auscultation bilaterally, Normal air movement Cardiovascular: No edema, Regular rate/rhythm, Normal S1 S2 Gastrointestinal: Soft and benign, Non-distended, No tenderness Musculoskeletal: No swelling, No tenderness Integumentary: No rashes Neurological: Normal strength at 5/5 x4 extr, Cranial nerves 3-12 intact Assessment And Plan - Current Problems (Diagnosis) (1) Right femoral fracture Current Visit: Yes Status: Acute (2) Fall Current Visit: Yes Status: Acute (3) Hypertension Current Visit: Yes Status: Acute (4) DM type 2 (diabetes mellitus, type 2) Current Visit: Yes Status: Acute (5) Hypothyroidism Current Visit: Yes Status: Acute - Plan Admit to the medical floor. Supportive measures with IV opiates p.r.n. for pain. Obtain the EKG. Follow chest x-ray result. IV hydration. Obtain UA. Consult orthopedic surgery. Patient has no active cardiac disease, blood sugars is well controlled. Patient condition is optimal for surgery. Resume home medications for hypertension, hypothyroidism. Insulin sliding scale for glucose management. Hold Lantus due to NPO status at midnight. Physician Review Additional Text: Problem list Right femoral fracture s/p fall - now s/p repair (09/11) Hypertension Diabetes mellitus, type 2; insulin dependent Hypothyroidism Abdominal discomfort acute blood loss anemia Seen by Ortho- pt s/p repair (09/11) norco for pain control, pain overall seems to be improving. patient appears very sensitive to pain, low motivation. Baseline history of significant neuropathy. Continue gabapentin. Urine culture without growth, antibiotic discontinued on 09/11, repeat urine culture without growth, leukocytosis resolved - likely reactive Resumed home medications for hypertension, hypothyroidism Insulin sliding scale for glucose management. WBAT per Ortho. Patient is participating in physical therapy. CXR: small b/l pleural effusions - stable. Code: full Dispo: improving, patient evaluated for inpatient rehab but was denied, I am told insurance denied inpatient rehab after peer to peer lakshmi Plascencia. Family is aware and they appealed the denial. I discussed Plan B off placement in [facility] facility. Family is receptive. Social service and case management to assist with arrangements for skilled rehab placement for now.
[2020-09-17] MEDS: ACETAMINOPHEN 500 MG TAB PO PRN (18:13)
[2020-09-17] MEDS: ATORVASTATIN 10 MG TAB PO SCH (20:41)
[2020-09-17] MEDS: LATANOPROST 0.005% OPTH SCH (20:48)
[2020-09-17] MEDS: OPTHALMIC OPTH SCH (20:48)
--- NOTE | 2020-09-17 21:52 | P.PN ---
Subjective Date of Service: 09/17/20 Chief Complaint: Fall Subjective: Improving, Working w/ PT working with PT; pain controlled Physical Examination - Vital Signs Temperature: 98.7 F Blood Pressure: 124/65 Pulse: 9 Respirations: 18 Pulse Ox (%): 98 - Physical Exam General: Alert, In no apparent distress Musculoskeletal: Other (RLE: dressing c/d/i; no significant swelling; +EHL/FHL/GSC/TA) Assessment And Plan - Plan Heather is an 89 yo female s/p right hip IMN POD #5 -PT to mobilize; WBAT RLE -lovenox for DVT prophylaxis -awaiting placement
[2020-09-18] MEDS: HYDROCODONE/APAP 5/325 MG TAB PO PRN ×3 (04:00→16:11)
[2020-09-18 06:16] LABS: Basophils % 0.8 % (0-1.3); Hematocrit 24.9 % (36.0-45.0); Lymphocytes % 14.5 % (15.3-44.8); MPV 6.8 fL (7.6-11.3); RBC Red Blood Cell Count 2.64 M/uL (3.86-4.86)
[2020-09-18] MEDS: INSULIN -REGULAR HUMAN 50 UNIT/0.5 ML ML SQ SCH ×4 (07:30→20:41)
[2020-09-18] MEDS: GLUCERNA SHAKE 237 ML CAN PO SCH ×2 (09:00→20:41)
[2020-09-18] MEDS: INSULIN GLARGINE 100 UNITS/ML SQ SCH (09:00)
[2020-09-18] MEDS: ENOXAPARIN 40 MG/0.4 ML SQ SCH (09:58)
[2020-09-18] MEDS: GABAPENTIN 300 MG CAP PO SCH ×2 (09:58→20:41)
--- NOTE | 2020-09-18 13:57 | P.PN ---
Subjective Date of Service: 09/18/20 Chief Complaint: Fall Patient has no complain. She is waiting rehab placement. Physical Examination - Vital Signs Temperature: 98.3 F Blood Pressure: 144/86 Pulse: 106 Respirations: 18 Pulse Ox (%): 98 - Physical Exam General: Alert, In no apparent distress Neck: Supple Respiratory: Clear to auscultation bilaterally, Normal air movement Cardiovascular: No edema, Regular rate/rhythm, Normal S1 S2 Gastrointestinal: Soft and benign, Non-distended, No tenderness Musculoskeletal: No swelling Integumentary: No erythema Neurological: Other (No focal motor deficit.) Assessment And Plan - Current Problems (Diagnosis) (1) Right femoral fracture Current Visit: Yes Status: Acute (2) Fall Current Visit: Yes Status: Acute (3) Hypertension Current Visit: Yes Status: Acute (4) DM type 2 (diabetes mellitus, type 2) Current Visit: Yes Status: Acute (5) Hypothyroidism Current Visit: Yes Status: Acute Physician Review Additional Text: Problem list Right femoral fracture s/p fall - now s/p repair (09/11) Hypertension Diabetes mellitus, type 2; insulin dependent Hypothyroidism Abdominal discomfort acute blood loss anemia Seen by Ortho- s/p repair (09/11) norco for pain control, pain overall seems to be improving. patient appears very sensitive to pain, low motivation. Baseline history of significant neuropathy. Patient report the gabapentin is ineffective for her neuropathy. Will Dc gabapentin and sat a trial of Lyrica Urine culture without growth, antibiotic discontinued on 09/11, repeat urine culture without growth, leukocytosis resolved - likely reactive Resumed home medications for hypertension, hypothyroidism Insulin sliding scale for glucose management. WBAT per Ortho. Patient is participating in physical therapy. CXR: small b/l pleural effusions - stable. Code: full Dispo: Patient evaluated for inpatient rehab but was denied, Peer to peer review also denied. Family is aware and they appealed the denial. Waiting for results of the appeal. Family informed to consider skilled rehab. Social service and case management to assist with arrangements for skilled rehab placement for now.
[2020-09-18] MEDS: OPTHALMIC OPTH SCH (20:40)
[2020-09-18] MEDS: LATANOPROST 0.005% OPTH SCH (20:40)
[2020-09-18] MEDS: ATORVASTATIN 10 MG TAB PO SCH (20:41)
--- NOTE | 2020-09-18 21:47 | P.PN ---
Subjective Date of Service: 09/18/20 Chief Complaint: Fall Subjective: Improving, Working w/ PT working with PT; pain controlled Physical Examination - Vital Signs Temperature: 98.1 F Blood Pressure: 113/57 Pulse: 85 Respirations: 18 Pulse Ox (%): 98 - Physical Exam General: Alert, In no apparent distress Musculoskeletal: Other (RLE: dressing c/d/i; no swelling of the right hip; NVI distally) Assessment And Plan - Plan Heather is an 89 yo female s/p right hip IMN POD #6 -xray of right hip from yesterday demonstrates overall good alignment without signs of hardware loosening or failure -PT to mobilize; WBAT RLE -lovenox for DVT prophylaxis -awaiting placement
[2020-09-19] MEDS: INSULIN -REGULAR HUMAN 50 UNIT/0.5 ML ML SQ SCH ×4 (07:30→20:28)
[2020-09-19] MEDS: HYDROCODONE/APAP 5/325 MG TAB PO PRN ×2 (09:30→20:28)
[2020-09-19] MEDS: GABAPENTIN 300 MG CAP PO SCH ×2 (09:30→20:28)
[2020-09-19] MEDS: INSULIN GLARGINE 100 UNITS/ML SQ SCH (09:30)
[2020-09-19] MEDS: GLUCERNA SHAKE 237 ML CAN PO SCH ×2 (09:31→20:32)
[2020-09-19] MEDS: ENOXAPARIN 40 MG/0.4 ML SQ SCH (09:31)
--- NOTE | 2020-09-19 12:00 | P.PN ---
Subjective Date of Service: 09/19/20 Chief Complaint: Fall Patient has no no new complain apart from pain from her chronic lower extremity neuropathy She is waiting rehab placement. Physical Examination - Vital Signs Temperature: 97.5 F Blood Pressure: 131/65 Pulse: 106 Respirations: 18 Pulse Ox (%): 96 - Physical Exam General: Alert, In no apparent distress, Oriented x3 Respiratory: Clear to auscultation bilaterally, Normal air movement Cardiovascular: No edema, Regular rate/rhythm, Normal S1 S2 Gastrointestinal: Normal bowel sounds, Soft and benign, Non-distended, No tenderness Musculoskeletal: No swelling Neurological: Other (No focal motor deficit.) Assessment And Plan - Current Problems (Diagnosis) (1) Right femoral fracture Current Visit: Yes Status: Acute (2) Fall Current Visit: Yes Status: Acute (3) Hypertension Current Visit: Yes Status: Acute (4) DM type 2 (diabetes mellitus, type 2) Current Visit: Yes Status: Acute (5) Hypothyroidism Current Visit: Yes Status: Acute Physician Review Additional Text: Problem list Right femoral fracture s/p fall - now s/p repair (09/11) Hypertension Diabetes mellitus, type 2; insulin dependent Hypothyroidism Abdominal discomfort acute blood loss anemia s/p repair (09/11) norco for pain control, pain overall seems to be improving. She has a baseline history of significant lower extremity neuropathy which is contributing significantly to her pain. Continue gabapentin. Patient stated she has not been able to afford Lyrica in the past. Urine culture without growth, antibiotic discontinued on 09/11, repeat urine culture without growth, leukocytosis resolved. Continue home medications for hypertension, hypothyroidism Insulin sliding scale for glucose management. WBAT per Ortho. Patient is participating in physical therapy. CXR: small b/l pleural effusions - stable. Code: full Dispo: Awaiting placement. Social service and case management assisting with skilled rehab placement.
[2020-09-19] MEDS: ATORVASTATIN 10 MG TAB PO SCH (20:27)
[2020-09-19] MEDS: LATANOPROST 0.005% OPTH SCH (20:32)
[2020-09-19] MEDS: OPTHALMIC OPTH SCH (20:32)
[2020-09-20] MEDS: HYDROCODONE/APAP 5/325 MG TAB PO PRN ×4 (02:43→22:36)
[2020-09-20] MEDS ORDERED: NA CHLORIDE 0.9% 250 ML ONE (04:30)
[2020-09-20 06:59] LABS: Phosphorus 3.4 mg/dL (2.5-4.9)
[2020-09-20 07:06] LABS: Magnesium 1.9 mg/dL (1.8-2.4); Potassium 4.4 mmol/L (3.5-5.1)
[2020-09-20] MEDS: GABAPENTIN 300 MG CAP PO SCH (08:48)
[2020-09-20] MEDS: INSULIN -REGULAR HUMAN 50 UNIT/0.5 ML ML SQ SCH ×4 (08:49→20:38)
[2020-09-20] MEDS: ENOXAPARIN 40 MG/0.4 ML SQ SCH (08:50)
[2020-09-20] MEDS: INSULIN GLARGINE 100 UNITS/ML SQ SCH (08:50)
[2020-09-20] MEDS: GLUCERNA SHAKE 237 ML CAN PO SCH ×2 (08:51→20:40)
--- NOTE | 2020-09-20 13:47 | P.PN ---
Subjective Date of Service: 09/20/20 Chief Complaint: Fall Patient has no no new complain. Her functional performance is improving She is waiting rehab placement. Physical Examination - Vital Signs Temperature: 97.6 F Blood Pressure: 120/58 Pulse: 93 Respirations: 16 Pulse Ox (%): 95 - Physical Exam General: Alert, In no apparent distress, Oriented x3 HEENT: Mucous membr. moist/pink Respiratory: Clear to auscultation bilaterally, Normal air movement Cardiovascular: No edema, Regular rate/rhythm, Normal S1 S2 Gastrointestinal: Soft and benign, Non-distended, No tenderness Musculoskeletal: No swelling Integumentary: No rashes Neurological: Normal speech, Normal strength at 5/5 x4 extr, Cranial nerves 3-12 intact Assessment And Plan - Current Problems (Diagnosis) (1) Right femoral fracture Current Visit: Yes Status: Acute (2) Fall Current Visit: Yes Status: Acute (3) Hypertension Current Visit: Yes Status: Acute (4) DM type 2 (diabetes mellitus, type 2) Current Visit: Yes Status: Acute (5) Hypothyroidism Current Visit: Yes Status: Acute Physician Review Additional Text: Problem list Right femoral fracture s/p fall - now s/p repair (09/11) Hypertension Diabetes mellitus, type 2; insulin dependent Hypothyroidism Abdominal discomfort acute blood loss anemia s/p repair (09/11) norco for pain control, pain overall improved She has a baseline history of significant lower extremity neuropathy which is contributing significantly to her pain. Patient known to try the Lyrica. She started on Lyrica 150 mg b.i.d. will monitor her response. Urine culture without growth, antibiotic discontinued on 09/11, repeat urine culture without growth, leukocytosis resolved. Continue home medications for hypertension, hypothyroidism Insulin sliding scale for glucose management. WBAT per Ortho. Patient is participating in physical therapy and functional status is improving. CXR: small b/l pleural effusions - stable. Code: full Dispo: Awaiting placement. Social service and case management assisting with skilled rehab placement.
[2020-09-20] MEDS ORDERED: D50W 25 GM/50 ML VIAL IV PRN (14:00)
[2020-09-20] MEDS: PREGABALIN 150 MG CAP PO SCH (20:39)
[2020-09-20] MEDS: LATANOPROST 0.005% OPTH SCH (20:39)
[2020-09-20] MEDS: OPTHALMIC OPTH SCH (20:39)
[2020-09-20] MEDS: ATORVASTATIN 10 MG TAB PO SCH (20:39)
[2020-09-21 05:25] LABS: Hematocrit 26.1 % (36.0-45.0)
[2020-09-21 05:52] LABS: Potassium 4.3 mmol/L (3.5-5.1)
[2020-09-21] MEDS: INSULIN -REGULAR HUMAN 50 UNIT/0.5 ML ML SQ SCH ×4 (07:30→20:38)
[2020-09-21] MEDS: PREGABALIN 150 MG CAP PO SCH ×2 (08:50→20:37)
[2020-09-21] MEDS: INSULIN GLARGINE 100 UNITS/ML SQ SCH (08:50)
[2020-09-21] MEDS: ENOXAPARIN 40 MG/0.4 ML SQ SCH (08:50)
[2020-09-21] MEDS: HYDROCODONE/APAP 5/325 MG TAB PO PRN ×3 (08:51→23:11)
[2020-09-21] MEDS: GLUCERNA SHAKE 237 ML CAN PO SCH ×2 (08:52→20:37)
--- NOTE | 2020-09-21 11:01 | P.PN ---
Subjective Date of Service: 09/21/20 Chief Complaint: Fall Patient has no no new complain. Her functional performance is improving and ambulating lung exam with a walker during the therapy sessions She is waiting rehab placement. Physical Examination - Vital Signs Temperature: 97.5 F Blood Pressure: 123/60 Pulse: 94 Respirations: 16 Pulse Ox (%): 96 - Physical Exam General: Alert, In no apparent distress Neck: JVD not distended Respiratory: Clear to auscultation bilaterally, Normal air movement Cardiovascular: No edema, Regular rate/rhythm, Normal S1 S2 Gastrointestinal: Soft and benign, Non-distended, No tenderness Musculoskeletal: No swelling Integumentary: No rashes Neurological: Normal strength at 5/5 x4 extr, Cranial nerves 3-12 intact Assessment And Plan - Current Problems (Diagnosis) (1) Right femoral fracture Current Visit: Yes Status: Acute (2) Fall Current Visit: Yes Status: Acute (3) Hypertension Current Visit: Yes Status: Acute (4) DM type 2 (diabetes mellitus, type 2) Current Visit: Yes Status: Acute (5) Hypothyroidism Current Visit: Yes Status: Acute Physician Review Additional Text: Problem list Right femoral fracture s/p fall - now s/p repair (09/11) Hypertension Diabetes mellitus, type 2; insulin dependent Hypothyroidism Abdominal discomfort acute blood loss anemia s/p repair (09/11) norco for pain control. She has a baseline history of significant lower extremity neuropathy which is contributing significantly to her pain. Gabapentin discontinued. Trial of Lyrica 150 mg b.i.d. Will monitor her response. Urine culture without growth, antibiotic discontinued on 09/11, repeat urine culture without growth, leukocytosis resolved. Continue home medications for hypertension, hypothyroidism Insulin sliding scale for glucose management. WBAT per Ortho. Patient is participating in physical therapy and functional status is improving. CXR: small b/l pleural effusions - stable. Code: full Dispo: Awaiting placement. Social service and case management assisting with skilled rehab placement.
[2020-09-21] MEDS: OPTHALMIC OPTH SCH (20:37)
[2020-09-21] MEDS: LATANOPROST 0.005% OPTH SCH (20:37)
[2020-09-21] MEDS: ATORVASTATIN 10 MG TAB PO SCH (20:37)
[2020-09-22 05:28] LABS: Hematocrit 25.9 % (36.0-45.0)
[2020-09-22] MEDS: INSULIN -REGULAR HUMAN 50 UNIT/0.5 ML ML SQ SCH ×4 (07:30→21:24)
[2020-09-22] MEDS: PREGABALIN 150 MG CAP PO SCH ×2 (08:09→21:17)
[2020-09-22] MEDS: INSULIN GLARGINE 100 UNITS/ML SQ SCH (08:10)
[2020-09-22] MEDS: GLUCERNA SHAKE 237 ML CAN PO SCH ×2 (08:11→21:00)
[2020-09-22] MEDS: ENOXAPARIN 40 MG/0.4 ML SQ SCH (08:11)
[2020-09-22 11:01] VITALS: O2SAT 94
--- NOTE | 2020-09-22 13:50 | P.PN ---
Subjective Date of Service: 09/22/20 Chief Complaint: Fall Patient has no no new complain. She is waiting for rehab placement. Physical Examination - Vital Signs Temperature: 98.2 F Blood Pressure: 132/61 Pulse: 74 Respirations: 18 Pulse Ox (%): 93 - Physical Exam General: Alert, In no apparent distress, Oriented x3 HEENT: Mucous membr. moist/pink Respiratory: Clear to auscultation bilaterally, Normal air movement Cardiovascular: No edema, Regular rate/rhythm, Normal S1 S2 Gastrointestinal: Soft and benign, Non-distended Musculoskeletal: No swelling Integumentary: No rashes Neurological: Normal strength at 5/5 x4 extr Assessment And Plan - Current Problems (Diagnosis) (1) Right femoral fracture Current Visit: Yes Status: Acute (2) Fall Current Visit: Yes Status: Acute (3) Hypertension Current Visit: Yes Status: Acute (4) DM type 2 (diabetes mellitus, type 2) Current Visit: Yes Status: Acute (5) Hypothyroidism Current Visit: Yes Status: Acute Physician Review Additional Text: Problem list Right femoral fracture s/p fall - now s/p repair (09/11) Hypertension Diabetes mellitus, type 2; insulin dependent Hypothyroidism Abdominal discomfort acute blood loss anemia s/p repair (09/11) norco for pain control. Continue Lyrica 150 mg b.i.d. Urine culture without growth, antibiotic discontinued on 09/11, repeat urine culture without growth, leukocytosis resolved. Continue home medications for hypertension, hypothyroidism Insulin sliding scale for glucose management. WBAT per Ortho. Patient is participating in physical therapy and functional status is improving. CXR: small b/l pleural effusions - stable. Code: full Dispo: Awaiting placement. Social service and case management assisting with skilled rehab placement.
[2020-09-22] MEDS: HYDROCODONE/APAP 5/325 MG TAB PO PRN (15:48)
[2020-09-22] MEDS: LATANOPROST 0.005% OPTH SCH (21:17)
[2020-09-22] MEDS: OPTHALMIC OPTH SCH (21:17)
[2020-09-22] MEDS: ATORVASTATIN 10 MG TAB PO SCH (21:17)
[2020-09-23 05:59] LABS: Hematocrit 27.2 % (36.0-45.0)
[2020-09-23] MEDS: INSULIN -REGULAR HUMAN 50 UNIT/0.5 ML ML SQ SCH ×2 (07:30→11:54)
[2020-09-23] MEDS: PREGABALIN 150 MG CAP PO SCH (08:35)
[2020-09-23] MEDS: ENOXAPARIN 40 MG/0.4 ML SQ SCH (08:36)
[2020-09-23] MEDS: INSULIN GLARGINE 100 UNITS/ML SQ SCH (08:38)
[2020-09-23] MEDS: GLUCERNA SHAKE 237 ML CAN PO SCH (08:42)
[2020-09-23] MEDS: HYDROCODONE/APAP 5/325 MG TAB PO PRN ×2 (08:56→15:43)
--- NOTE | 2020-09-23 13:08 | P.DS ---
Admission Date: 09/09/20 Discharge Date: 09/23/20 Disposition: ROUTINE DISCHARGE Discharge Condition: FAIR Reason for Admission: Fall - Problems (1) Right femoral fracture Current Visit: Yes Status: Acute (2) Fall Current Visit: Yes Status: Acute (3) Hypertension Current Visit: Yes Status: Acute (4) DM type 2 (diabetes mellitus, type 2) Current Visit: Yes Status: Acute (5) Hypothyroidism Current Visit: Yes Status: Acute Brief History of Present Illness: 89-year-old woman with a history of hypertension, diabetes mellitus type 2 was brought to the emergency department due to a fall at home. Patient at baseline uses a walker. Per family patient fell about 6 months ago and sustained a hairline fracture to her vertebra. X-ray done in the emergency demonstrated right intertrochanteric fracture. Orthopedic surgeon Dr. York contacted for ORIF and he recommended admission to the hospitalist service. Hospital Course: Patient admitted to floor. She was seen by Dr. York, ORIF done, patient was monitored postop. She was seen by physical therapy and she was able to ambulate with assistance. She does have significant peripheral neuropathy which contributed to her impaired mobility. She is on gabapentin which was changed to Lyrica with some improvement. Her pain was also managed with opioids. Dr. York recommend 4 weeks of DVT prophylaxis with Lovenox. UA showed no UTI. Patient has improved clinically and deemed stable for discharge. Dr. York will follow with the patient 2 weeks postop. Vital Signs/Physical Exam: Temp Pulse Resp BP Pulse Ox 98.4 F 86 20 128/60 97 09/23/20 08:00 09/23/20 08:00 09/23/20 09:56 09/23/20 08:00 09/23/20 09:56 General: Alert, In no apparent distress, Oriented x3 HEENT: Mucous membr. moist/pink Neck: JVD not distended Respiratory: Clear to auscultation bilaterally, Normal air movement Cardiovascular: No edema, Regular rate/rhythm, Normal S1 S2 Gastrointestinal: Normal bowel sounds, Soft and benign, Non-distended, No tenderness Musculoskeletal: No swelling, No tenderness Integumentary: No rashes Neurological: Normal strength at 5/5 x4 extr, Cranial nerves 3-12 intact Laboratory Data at Discharge: WBC 6.60 K/uL (4.3-10.9) D 09/18/20 05:45 Hgb 8.8 g/dL (12.0-15.0) L 09/23/20 05:30 Hct 27.2 % (36.0-45.0) L 09/23/20 05:30 Plt Count 327 K/uL (152-406) D 09/18/20 05:45 PT 13.4 SECONDS (9.5-12.5) H 09/10/20 05:24 INR 1.16 09/10/20 05:24 Sodium 141 mmol/L (136-145) 09/21/20 05:13 Potassium 4.3 mmol/L (3.5-5.1) 09/21/20 05:13 BUN 12 mg/dL (7-18) 09/21/20 05:13 Creatinine 0.95 mg/dL (0.55-1.3) 09/21/20 05:13 Glucose 106 mg/dL (74-106) 09/21/20 05:13 Phosphorus 3.4 mg/dL (2.5-4.9) 09/20/20 06:17 Magnesium 1.9 mg/dL (1.8-2.4) 09/20/20 06:17 Total Bilirubin 0.3 mg/dL (0.2-1.0) 09/09/20 15:08 AST 14 U/L (15-37) L 09/09/20 15:08 ALT 13 U/L (12-78) 09/09/20 15:08 Alkaline Phosphatase 101 U/L (45-117) 09/09/20 15:08 Home Medications: Amlodipine [Norvasc*] 5 mg PO DAILY 09/10/20 Insulin Glargine Human [Lantus*] 12 unit SQ DAILY 09/10/20 Losartan Potassium 50 mg PO DAILY 09/10/20 Lovastatin 10 mg PO DAILY 09/10/20 Latanoprost/Pf [Latanoprost 0.005% Eye Drop] 1 gtt EACH EYE DAILY 09/11/20 Docusate [Colace Cap*] 200 mg PO DAILY PRN cap 09/23/20 Enoxaparin Sodium [Lovenox 40 MG INJ*] 40 mg SQ DAILY #18 syr 09/23/20 Glucerna Shake [Glucerna*] 237 ml PO BID can 09/23/20 Hydrocodone 5/APAP 325 [[place] 5/325*] 1 tab PO Q6HR PRN #20 tab 09/23/20 Insulin -Regular Human [Novolin -R*] See Protocol SQ ACHS ml 09/23/20 Pregabalin [Lyrica] 150 mg PO BID cap 09/23/20 New Medications: Hydrocodone 5/APAP 325 [[place] 5/325*] 1 tab PO Q6HR PRN #20 tab PRN Reason: Pain Scale 5-7 (Moderate) Enoxaparin Sodium [Lovenox 40 MG INJ*] 40 mg SQ DAILY #18 syr Diet: ADA Activity: Weight bearing as tolerated Followup: Elli Garcia DO [Primary Care Provider] - Leland York MD [ACTIVE - CAN ADMIT] - (within 1 week) Time spent managing pt's care (in minutes): 36
[2020-09-23 13:46] VITALS: BP 99/55; TEMP 98.2
== END 2020-09-23 16:31 | DRG 481 ==
LOC: ER 12:49 → ERHOLD 16:57 → 2ND 20:40
PROVIDERS: ADMIT Internal Medicine; ATTEND Internal Medicine
PROC: 0QH636Z Insertion of Intramedullary Internal Fixation Device into Right Upper Femur, Percutaneous Approach (ICD-10-PCS; principal; 2020-09-11 10:30)
DX: S72.141A Displaced intertrochanteric fracture of right femur, initial encounter for closed fracture (principal); D62 Acute posthemorrhagic anemia; E11.42 Type 2 diabetes mellitus with diabetic polyneuropathy; I10 Essential (primary) hypertension; E03.9 Hypothyroidism, unspecified; D72.829 Elevated white blood cell count, unspecified; E78.5 Hyperlipidemia, unspecified; W01.0XXA Fall on same level from slipping, tripping and stumbling without subsequent striking against object, initial encounter; Z88.1 Allergy status to other antibiotic agents; Z88.0 Allergy status to penicillin; Z88.5 Allergy status to narcotic agent; Z79.4 Long term (current) use of insulin; Z79.890 Hormone replacement therapy; Z79.899 Other long term (current) drug therapy; Z85.3 Personal history of malignant neoplasm of breast; Z90.49 Acquired absence of other specified parts of digestive tract; Z90.711 Acquired absence of uterus with remaining cervical stump; Z20.822 Contact with and (suspected) exposure to COVID-19
CPT/HCPCS: 36415; 51702; 71045; 72170; 73530; 74018; 74176; 80048; 80053; 81003; 81015; 82947; 83735; 84100; 84132; 84145; 84484; 85014; 85018; 85025; 85610; 87086; 87088; 93005; 94010; 94760; 96365; 96366; 96375; 97112; 97116; 97161; 97530; 99284; J1170; J1644; J1650; J1815; J2270; J2405; J2704; J3010; J3360; J3475; J7030; J7042; J7050; U0003